=== PATIENT | male | born 1965 | race African-American/Black ===

== ENCOUNTER 2018-10-15 03:13 | Inpatient (IN) | payer OTHER ==
--- NOTE | 2018-10-15 03:45 | ER ---
Nurse's Notes [facility] Name: Cornelius Herman Jr Age: 53 yrs Sex: Male : 1965 Arrival Date: 10/15/2018 Time: 03:15 Bed 15 Private MD: Diagnosis: Chest pain, unspecified;Pain in left leg;Type 2 diabetes mellitus;Conjunctivitis;Essential (primary) hypertension;Cardiomegaly;Unspecified combined systolic (congestive) and diastolic (congestive) heart failure;Pleural effusion in conditions classified elsewhere Presentation: 10/15 03:29 Presenting complaint: Patient states: he was here for a sleep study and noticed that he aa1 was having pain in his L hamstring area and also L eye pain as well so he decided to come to the ED for evaluation since he was here. States, "It just feels like it's fatigued." Amb with steady gait. Transition of care: patient was not received from another setting of care. Onset of symptoms was October 15, 2018. Risk Assessment: Do you want to hurt yourself or someone else? Patient reports no desire to harm self or others. Initial Sepsis Screen: Does the patient meet any 2 criteria? No. Patient's initial sepsis screen is negative. Does the patient have a suspected source of infection? No. Patient's initial sepsis screen is negative. Care prior to arrival: None. 03:29 Method Of Arrival: Ambulatory aa1 03:29 Acuity: MIKE 4 aa1 03:36 Presenting complaint: Once physician entered pt's room pt states that he also felt a aa1 tightness in his chest and neck during his sleep study. States, "It's not pain, it was just discomfort.". 03:36 Acuity: MIKE 3 aa1 Triage Assessment: 07:00 General: Appears in no apparent distress. comfortable, Behavior is calm, cooperative, bp appropriate for age. Historical: - Allergies: 03:36 No Known Allergies; aa1 - Home Meds: 03:36 metformin 750 mg Oral Tb24 1 tab twice a day [Active]; glimepiride 2 mg Oral tab twice aa1 a day [Active]; Coreg 12.5 mg Oral tab 1 tab 2 times per day [Active]; aspirin 81 mg Oral chew 1 tab once daily [Active]; simvastatin 10 mg Oral tab 1 tab once daily [Active]; - PMHx: 03:36 Diabetes - NIDDM; Hypertension; Hyperlipidemia; aa1 - PSHx: 03:36 None; aa1 - Immunization history:: Flu vaccine is not up to date. - Social history:: Smoking status: Patient/guardian denies using tobacco. - Ebola Screening: : No symptoms or risks identified at this time. - Family history:: not pertinent. Screenin:30 Abuse screen: Denies threats or abuse. Denies injuries from another. Nutritional aa1 screening: No deficits noted. Tuberculosis screening: No symptoms or risk factors identified. Fall Risk None identified. Assessment: 03:30 General: Appears in no apparent distress. comfortable, Behavior is calm, cooperative, aa1 appropriate for age. Pain: Complains of pain in chest and left hamstring Pain currently is 2 out of 10 on a pain scale. Quality of pain is described as heavy, Pain began 30 min ago. Is intermittent. Neuro: Level of Consciousness is awake, alert, obeys commands, Oriented to person, place, time, situation, Moves all extremities. Full function Gait is steady, Speech is normal. Cardiovascular: Reports chest pain, Denies diaphoresis, lightheadedness, nausea, palpitations, shortness of breath, Heart tones S1 S2 present Capillary refill < 3 seconds Clubbing of nail beds is absent JVD is absent Patient's skin is warm and dry. Rhythm is regular Chest pain is described as mild, diffuse. Respiratory: Airway is patent Respiratory effort is even, unlabored, Respiratory pattern is regular, symmetrical. GI: No signs and/or symptoms were reported involving the gastrointestinal system. : No signs and/or symptoms were reported regarding the genitourinary system. EENT: No signs and/or symptoms were reported regarding the EENT system. Derm: Skin is intact, is healthy with good turgor, Skin is pink, warm \\T\\ dry. Musculoskeletal: Circulation, motion, and sensation intact. Capillary refill < 3 seconds, Range of motion: intact in all extremities. 04:35 Reassessment: Patient appears in no apparent distress at this time. Patient and/or aa1 family updated on plan of care and expected duration. Pain level reassessed. Patient is alert, oriented x 3, equal unlabored respirations, skin warm/dry/pink. Pt to have CT chest and venous doppler prior to admission to hospital. 05:19 Reassessment: Patient appears in no apparent distress at this time. Patient and/or aa1 family updated on plan of care and expected duration. Pain level reassessed. Patient is alert, oriented x 3, equal unlabored respirations, skin warm/dry/pink. Awaiting CT scan and u/s. 05:25 Reassessment: Patient appears in no apparent distress at this time. Patient and/or aa1 family updated on plan of care and expected duration. Pain level reassessed. Patient is alert, oriented x 3, equal unlabored respirations, skin warm/dry/pink. Pt requesting pain medication at this time. Still awaiting CT and u/s. 05:46 Reassessment: Pt taken to CT at this time. aa1 06:15 Reassessment: Patient appears in no apparent distress at this time. Patient and/or aa1 family updated on plan of care and expected duration. Pain level reassessed. Patient is alert, oriented x 3, equal unlabored respirations, skin warm/dry/pink. Dr. Mcgowan at bedside for pt assessment. certified master safe technician reports u/s tech should arrive around 0700 for study. 07:00 Reassessment: RECD REPORT FROM JULIA BREAUX. 53YO BM P/W RLE PAIN, +EDEMA. VS STABLE ON bp MONITOR, ADMIT ON HOLD PENDING U/S RESULT. 07:30 Reassessment: U/S COMPLETED, ADMIT IN PROCESS. bp Vital Signs: 03:30 BP 136 / 103; Pulse 102; Resp 18; Temp 99.5; Pulse Ox 100% on R/A; Weight 113.4 kg; aa1 Height 6 ft. 5 in. (195.58 cm); Pain 2/10; 04:30 BP 121 / 98; Pulse 101; Resp 20; Temp 98.9; Pulse Ox 98% on R/A; Pain 2/10; aa1 05:30 BP 115 / 93; Pulse 97; Resp 20; Pulse Ox 100% on R/A; Pain 5/10; aa1 06:27 BP 132 / 84; Pulse 94; Resp 22; Temp 99.0(O); Pulse Ox 95% on R/A; Pain 0/10; aa1 07:31 BP 111 / 94; Pulse 96; Resp 35; Pulse Ox 98% ; bp 03:30 Body Mass Index 29.65 (113.40 kg, 195.58 cm) aa1 ED Course: 03:15 Patient arrived in ED. ag3 03:20 Julia Price, RN is Primary Nurse. aa1 03:28 Quique Dutta MD is Attending Physician. wes 03:30 Arm band placed on right wrist. aa1 03:30 Patient has correct armband on for positive identification. Placed in gown. Bed in low aa1 position. Call light in reach. 03:32 Triage completed. aa1 03:35 Inserted saline lock: 20 gauge in left forearm, using aseptic technique. Blood rr5 collected. 03:40 equipment monitor phototypesetting on. Pulse ox on. NIBP on. rr5 03:42 Shannan Mcgowan MD is Hospitalizing Provider. wes 04:14 X-ray completed. Portable x-ray completed in exam room. Patient tolerated procedure sg4 well. 04:16 Chest Single View In Process Unspecified. EDMS 05:[address] via wheelchair. kw1 05:52 No provider procedures requiring assistance completed. Patient admitted, IV remains in aa1 place. 06:21 CT completed. Patient tolerated procedure well. Patient moved back from CT. kw1 06:52 Diet: Patient given snack. Tolerated well. aa1 07:00 Report given to Suleman Martel RN. aa1 07:29 Suleman Martel RN is Primary Nurse. bp 07:35 Ultrasound completed. Patient tolerated well. Notified ED Physician piotr. sg3 Administered Medications: 03:59 Drug: Lopressor 25 mg Route: PO; aa1 04:50 Follow up: Response: No adverse reaction; Blood pressure is lowered aa1 04:00 Drug: Aspirin Chewable Tablet 324 mg Route: PO; aa1 04:50 Follow up: Response: No adverse reaction aa1 04:00 Drug: Pepcid 20 mg Route: IVP; Site: left forearm; aa1 04:51 Follow up: Response: No adverse reaction aa1 04:00 Drug: Lovenox 1 mg/kg Route: Sub-Q; Site: right lower abdomen; aa1 04:51 Follow up: Response: No adverse reaction aa1 05:20 Drug: Mucomyst - Acetylcysteine 600 mg Route: PO; aa1 06:30 Follow up: Response: No adverse reaction aa1 05:38 Drug: Zofran 4 mg Route: IVP; Site: left forearm; aa1 06:29 Follow up: Response: No adverse reaction; Nausea is decreased aa1 05:40 Drug: morphine 2 mg Route: IVP; Site: left forearm; aa1 06:30 Follow up: Response: No adverse reaction; Pain is decreased aa1 07:30 Drug: Lasix 40 mg Route: IVP; Site: right antecubital; bp 07:30 Follow up: Response: No adverse reaction bp 07:30 Drug: Potassium Effervescent Tablet 25 mEq Route: PO; bp 07:30 Follow up: Response: No adverse reaction bp Outcome: 03:44 Decision to Hospitalize by Provider. wes 07:53 Admitted to Tele accompanied by tech, via wheelchair, room 421, with chart, Report bp called to JERI BREAUX 07:53 Condition: stable 07:53 Instructed on the need for admit. 08:14 Patient left the ED. bp Signatures: Dispatcher [employer] EDJulia Almendarez RN RN aa1 Quique Dutta MD MD cha Peltier, Brian RN RN bp Carolin Jorgensen kw1 Patsy Ling sg3 Zaira Rogers3 Yue Allen sg4 Dax Sadler, RN RN rr5
--- NOTE | 2018-10-15 03:45 | EDPHYS ---
Physician Documentation [facility] Name: Cornelius Herman Jr Age: 53 yrs Sex: Male : 1965 Arrival Date: 10/15/2018 Time: 03:15 Bed 15 Private MD: ED Physician Quique Dutta HPI: 10/15 03:39 This 53 yrs old Black Male presents to ER via Ambulatory with complaints of Leg Pain. wes 03:39 The patient presents with pain. The complaints affect the left hamstring. Context: The wes problem was sustained in the hospital. Onset: The symptoms/episode began/occurred this morning. Modifying factors: The symptoms are alleviated by nothing. the symptoms are aggravated by nothing. Associated signs and symptoms: The patient has no apparent associated signs or symptoms. Severity of symptoms: At their worst the symptoms were mild, in the emergency department the symptoms are unchanged. Historical: - Allergies: 03:36 No Known Allergies; aa1 - Home Meds: 03:36 metformin 750 mg Oral Tb24 1 tab twice a day [Active]; glimepiride 2 mg Oral tab twice aa1 a day [Active]; Coreg 12.5 mg Oral tab 1 tab 2 times per day [Active]; aspirin 81 mg Oral chew 1 tab once daily [Active]; simvastatin 10 mg Oral tab 1 tab once daily [Active]; - PMHx: 03:36 Diabetes - NIDDM; Hypertension; Hyperlipidemia; aa1 - PSHx: 03:36 None; aa1 - Immunization history:: Flu vaccine is not up to date. - Social history:: Smoking status: Patient/guardian denies using tobacco. - Ebola Screening: : No symptoms or risks identified at this time. - Family history:: not pertinent. ROS: 03:39 Constitutional: Negative for fever, chills, and weight loss, Eyes: Negative for injury, wes pain, redness, and discharge, ENT: Negative for injury, pain, and discharge, Neck: Negative for injury, pain, and swelling, Respiratory: Negative for shortness of breath, cough, wheezing, and pleuritic chest pain, Abdomen/GI: Negative for abdominal pain, nausea, vomiting, diarrhea, and constipation, Back: Negative for injury and pain, : Negative for injury, bleeding, discharge, and swelling, Skin: Negative for injury, rash, and discoloration, Neuro: Negative for headache, weakness, numbness, tingling, and seizure, Psych: Negative for depression, anxiety, suicide ideation, homicidal ideation, and hallucinations, Allergy/Immunology: Negative for hives, rash, and allergies, Endocrine: Negative for neck swelling, polydipsia, polyuria, polyphagia, and marked weight changes, Hematologic/Lymphatic: Negative for swollen nodes, abnormal bleeding, and unusual bruising. 03:39 Cardiovascular: Positive for chest pain, of the chest. 03:39 MS/extremity: Positive for pain, of the left hamstring. Exam: 03:39 Constitutional: This is a well developed, well nourished patient who is awake, alert, wes and in no acute distress. Head/Face: Normocephalic, atraumatic. Eyes: Pupils equal round and reactive to light, extra-ocular motions intact. Lids and lashes normal. Conjunctiva and sclera are non-icteric and not injected. Cornea within normal limits. Periorbital areas with no swelling, redness, or edema. ENT: Nares patent. No nasal discharge, no septal abnormalities noted. Tympanic membranes are normal and external auditory canals are clear. Oropharynx with no redness, swelling, or masses, exudates, or evidence of obstruction, uvula midline. Mucous membranes moist. Neck: Trachea midline, no thyromegaly or masses palpated, and no cervical lymphadenopathy. Supple, full range of motion without nuchal rigidity, or vertebral point tenderness. No Meningismus. Chest/axilla: Normal chest wall appearance and motion. Nontender with no deformity. No lesions are appreciated. Cardiovascular: Regular rate and rhythm with a normal S1 and S2. No gallops, murmurs, or rubs. Normal PMI, no JVD. No pulse deficits. Respiratory: Lungs have equal breath sounds bilaterally, clear to auscultation and percussion. No rales, rhonchi or wheezes noted. No increased work of breathing, no retractions or nasal flaring. Abdomen/GI: Soft, non-tender, with normal bowel sounds. No distension or tympany. No guarding or rebound. No evidence of tenderness throughout. Back: No spinal tenderness. No costovertebral tenderness. Full range of motion. Male : Normal genitalia with no discharge or lesions. Skin: Warm, dry with normal turgor. Normal color with no rashes, no lesions, and no evidence of cellulitis. MS/ Extremity: Pulses equal, no cyanosis. Neurovascular intact. Full, normal range of motion. Neuro: Awake and alert, GCS 15, oriented to person, place, time, and situation. Cranial nerves II-XII grossly intact. Motor strength 5/5 in all extremities. Sensory grossly intact. Cerebellar exam normal. Normal gait. Psych: Awake, alert, with orientation to person, place and time. Behavior, mood, and affect are within normal limits. 04:43 Musculoskeletal/extremity: DVT Exam: No signs of deep vein thrombosis. no pain, no wes swelling, no tenderness, negative Homans' sign noted on exam, no appreciated bluish discoloration, no erythema, no increased warmth. Vital Signs: 03:30 BP 136 / 103; Pulse 102; Resp 18; Temp 99.5; Pulse Ox 100% on R/A; Weight 113.4 kg; aa1 Height 6 ft. 5 in. (195.58 cm); Pain 2/10; 04:30 BP 121 / 98; Pulse 101; Resp 20; Temp 98.9; Pulse Ox 98% on R/A; Pain 2/10; aa1 05:30 BP 115 / 93; Pulse 97; Resp 20; Pulse Ox 100% on R/A; Pain 5/10; aa1 06:27 BP 132 / 84; Pulse 94; Resp 22; Temp 99.0(O); Pulse Ox 95% on R/A; Pain 0/10; aa1 07:31 BP 111 / 94; Pulse 96; Resp 35; Pulse Ox 98% ; bp 03:30 Body Mass Index 29.65 (113.40 kg, 195.58 cm) aa1 MDM: 03:28 Patient medically screened. [facility] 03:42 Data reviewed: vital signs, nurses notes, lab test result(s), EKG, radiologic studies, [facility] plain films. 10/15 03:39 Order name: Basic Metabolic Panel [facility] 10/15 03:39 Order name: CBC with Diff [facility] 10/15 03:39 Order name: LFT's [facility] 10/15 03:39 Order name: Magnesium [facility] 10/15 03:39 Order name: NT PRO-BNP [facility] 10/15 03:39 Order name: PT-INR [facility] 10/15 03:39 Order name: Troponin (emerg Dept Use Only) [facility] 10/15 03:39 Order name: Lipase [facility] 10/15 03:39 Order name: Urine Culture [facility] 10/15 03:49 Order name: D-Dimer [facility] 10/15 04:03 Order name: Urine Dipstick--Ancillary (enter results) ag4 10/15 04:09 Order name: Basic Metabolic Panel; Complete Time: 05:23 EDMS 10/15 04:09 Order name: Liver (Hepatic) Function; Complete Time: 05:23 EDMS 10/15 04:09 Order name: Troponin (Emerg Dept Use Only); Complete Time: 05:23 EDMS 10/15 03:39 Order name: XRAY Chest (1 view) [facility] 10/15 04:05 Order name: Chest Single View [facility] 10/15 04:09 Order name: NT PRO-BNP; Complete Time: 05:23 EDMS 10/15 04:09 Order name: Magnesium; Complete Time: 05:23 EDMS 10/15 04:09 Order name: Lipase; Complete Time: 05:23 EDMS 10/15 04:09 Order name: CBC with Automated Diff; Complete Time: 04:40 EDMS 10/15 04:09 Order name: Protime (+INR); Complete Time: 04:40 EDMS 10/15 04:09 Order name: D-Dimer; Complete Time: 04:40 EDMS 10/15 04:09 Order name: Urine Culture [facility] 10/15 04:29 Order name: Echo with Doppler [facility] 10/15 04:29 Order name: Lipid Profile [facility] 10/15 04:29 Order name: Lipid Profile [facility] 10/15 04:29 Order name: Troponin I [facility] 10/15 04:29 Order name: Troponin I [facility] 10/15 04:29 Order name: Troponin I [facility] 10/15 05:23 Order name: Lipid Profile; Complete Time: 05:23 EDMS 10/15 03:39 Order name: EKG; Complete Time: 07:11 wes 10/15 03:39 Order name: Cardiac monitoring; Complete Time: 03:45 [facility] 10/15 03:39 Order name: EKG - Nurse/Tech; Complete Time: 04:00 wes 10/15 03:39 Order name: IV Saline Lock; Complete Time: 03:45 wes 10/15 03:39 Order name: Labs collected and sent; Complete Time: 03:45 [facility] 10/15 03:39 Order name: O2 Per Protocol; Complete Time: 03:45 [facility] 10/15 03:39 Order name: O2 Sat Monitoring; Complete Time: 03:45 [facility] 10/15 03:39 Order name: Urine Dipstick-Ancillary (obtain specimen); Complete Time: 04:00 [facility] 10/15 04:29 Order name: CONS Physician Consult [facility] 10/15 04:29 Order name: Heart Healthy [facility] 10/15 04:31 Order name: CT Chest For PE Angio [facility] 10/15 04:31 Order name: US Extremity Venous W Compression Myron wes Administered Medications: 03:59 Drug: Lopressor 25 mg Route: PO; aa1 04:50 Follow up: Response: No adverse reaction; Blood pressure is lowered aa1 04:00 Drug: Aspirin Chewable Tablet 324 mg Route: PO; aa1 04:50 Follow up: Response: No adverse reaction aa1 04:00 Drug: Pepcid 20 mg Route: IVP; Site: left forearm; aa1 04:51 Follow up: Response: No adverse reaction aa1 04:00 Drug: Lovenox 1 mg/kg Route: Sub-Q; Site: right lower abdomen; aa1 04:51 Follow up: Response: No adverse reaction aa1 05:20 Drug: Mucomyst - Acetylcysteine 600 mg Route: PO; aa1 06:30 Follow up: Response: No adverse reaction aa1 05:38 Drug: Zofran 4 mg Route: IVP; Site: left forearm; aa1 06:29 Follow up: Response: No adverse reaction; Nausea is decreased aa1 05:40 Drug: morphine 2 mg Route: IVP; Site: left forearm; aa1 06:30 Follow up: Response: No adverse reaction; Pain is decreased aa1 07:30 Drug: Lasix 40 mg Route: IVP; Site: right antecubital; bp 07:30 Follow up: Response: No adverse reaction bp 07:30 Drug: Potassium Effervescent Tablet 25 mEq Route: PO; bp 07:30 Follow up: Response: No adverse reaction bp Disposition: 10/15/18 03:44 Hospitalization ordered by Shannan Mcgowan for Observation. Preliminary diagnosis are Chest pain, unspecified, Pain in left leg, Type 2 diabetes mellitus, Conjunctivitis, Essential (primary) hypertension, Cardiomegaly, Unspecified combined systolic (congestive) and diastolic (congestive) heart failure, Pleural effusion in conditions classified elsewhere. - Bed requested for Telemetry/MedSurg (observation). - Status is Observation. bp - Condition is Stable. - Problem is new. - Symptoms have improved. UTI on Admission? No Signatures: Dispatcher [employer] EDMS Rose Albert RN RN mw Kern, Alissa, RN RN aa1 Quique Dutta MD MD cha Peltier, Brian, RN RN bp Corrections: (The following items were deleted from the chart) 04:13 03:44 Hospitalization Ordered by Shannan Mcgowan MD for Observation. Preliminary wes diagnosis is Chest pain, unspecified; Pain in left leg; Type 2 diabetes mellitus; Conjunctivitis. Bed requested for Telemetry/MedSurg (observation). Status is Observation. Condition is Stable. Problem is new. Symptoms have improved. UTI on Admission? No. wes 04:14 04:13 10/15/2018 03:44 Hospitalization Ordered by Shannan Mcgowan MD for Observation. wes Preliminary diagnosis is Chest pain, unspecified; Pain in left leg; Type 2 diabetes mellitus; Conjunctivitis; Essential (primary) hypertension. Bed requested for Telemetry/MedSurg (observation). Status is Observation. Condition is Stable. Problem is new. Symptoms have improved. UTI on Admission? No. wes 04:49 04:14 10/15/2018 03:44 Hospitalization Ordered by Shannan Mcgowan MD for Observation. rose Preliminary diagnosis is Chest pain, unspecified; Pain in left leg; Type 2 diabetes mellitus; Conjunctivitis; Essential (primary) hypertension; Cardiomegaly. Bed requested for Telemetry/MedSurg (observation). Status is Observation. Condition is Stable. Problem is new. Symptoms have improved. UTI on Admission? No. wes 07:06 04:49 10/15/2018 03:44 Hospitalization Ordered by Shannan Mcgowan MD for Observation. wes Preliminary diagnosis is Chest pain, unspecified; Pain in left leg; Type 2 diabetes mellitus; Conjunctivitis; Essential (primary) hypertension; Cardiomegaly. Bed requested for Telemetry/MedSurg (observation). Status is Observation. Condition is Stable. Problem is new. Symptoms have improved. UTI on Admission? No. rose 08:14 07:06 10/15/2018 03:44 Hospitalization Ordered by Shannan Mcgowan MD for Observation. bp Preliminary diagnosis is Chest pain, unspecified; Pain in left leg; Type 2 diabetes mellitus; Conjunctivitis; Essential (primary) hypertension; Cardiomegaly; Unspecified combined systolic (congestive) and diastolic (congestive) heart failure; Pleural effusion in conditions classified elsewhere. Bed requested for Telemetry/MedSurg (observation). Status is Observation. Condition is Stable. Problem is new. Symptoms have improved. UTI on Admission? No. wes
[2018-10-15] MEDS ORDERED: ASPIRIN 81 MG CHEWABLE TABLET ONE (03:59)
[2018-10-15] MEDS ORDERED: FAMOTIDINE 20 MG/2 ML VIAL IV ONE (04:00)
[2018-10-15] MEDS ORDERED: METOPROLOL TAR 25 MG TAB ONE (04:00)
[2018-10-15] MEDS ORDERED: ENOXAPARIN 100 MG/ML SYR SQ ONE (04:00)
[2018-10-15 04:16] LABS: Absolute Lymphocytes (CBC) 1.9 K/uL (0.7-4.9); Absolute Monocytes 0.9 K/uL (0.1-1.3); Absolute Neutrophil 7.1 K/uL (1.8-8.0); Basophils % 0.6 % (0-1.3); Eosinophils % 1.8 % (0-4.4); Lymphocytes % 18.6 % (15.3-44.8); MPV 9.1 fL (7.6-11.3); Monocytes % 9.1 % (3.3-12.3)
[2018-10-15 04:18] LABS: Protime INR 1.12
[2018-10-15] MEDS ORDERED: ACETAMINOPHEN 500 MG TAB PO PRN (04:23)
[2018-10-15] MEDS ORDERED: MORPHINE 4 MG/ML SYR IV PRN (04:23)
[2018-10-15] MEDS ORDERED: ALPRAZOLAM 0.25 MG TABLET PO PRN (04:23)
[2018-10-15 04:32] LABS: ALT/SGPT 71 U/L (12-78); AST/SGOT 32 U/L (15-37); Albumin 3.7 g/dL (3.4-5.0); Alkaline Phosphatase 83 U/L (45-117); BUN Blood Urea Nitrogen 20 mg/dL (7-18); Bicarbonate 25 mmol/L (21-32); Bilirubin Direct 0.2 mg/dL (0-0.2); Bilirubin Total 0.6 mg/dL (0.2-1.0); Glucose Level 202 mg/dL (74-106); Lipase 56 U/L (73-393); Magnesium 2.1 mg/dL (1.8-2.4); NT PRO-BNP 2517 pg/mL (<125); Potassium 4.8 mmol/L (3.5-5.1); Protein, Total 6.9 g/dL (6.4-8.2); Sodium Level 138 mmol/L (136-145); Troponin (Emerg Dept Use Only) < 0.02 ng/mL (0.0-0.045)
[2018-10-15] MEDS ORDERED: ACETYLCYST 6,000 MG/30 ML VIAL ONE (05:15)
[2018-10-15 05:23] LABS: HDL Cholesterol 35 mg/dL (40-60); LDL Cholesterol, Calculated 86 (<130)
[2018-10-15] MEDS ORDERED: MORPHINE 2 MG/ML SYR ONE (05:46)
[2018-10-15] MEDS ORDERED: ONDANSETRON 4 MG/2 ML VIAL ONE (05:47)
[2018-10-15] MEDS ORDERED: POTASSIUM 25 MEQ EFFERV TAB ONE (07:53)
[2018-10-15] MEDS ORDERED: FUROSEMIDE 40 MG/4 ML VIAL ONE (07:54)
[2018-10-15 08:49] LABS: Urine Blood NEGATIVE (NEG); Urine Glucose NEGATIVE (NEG); Urine Protein NEGATIVE (NEG); Urine pH 5.5 (5.0-7.0)
--- NOTE | 2018-10-15 09:33 | RAD REPORT ---
EXAM DESCRIPTION: RAD - Chest Single View - 10/15/2018 4:16 am CLINICAL HISTORY: Chest pain COMPARISON: None. TECHNIQUE: AP portable chest image was obtained 0407 hours . FINDINGS: No peripheral mass or consolidation. Lung markings are mildly prominent probably baseline. Cardiomegaly is present suspected to be primarily right atrial enlargement. Pulmonary vasculature no t outside of normal range. No pneumothorax or large pleural effusion. No acute bony abnormality seen. No acute aortic findings suspected. IMPRESSION: No focal lung parenchymal process. Cardiomegaly.
[2018-10-15] MEDS: Gatifloxacin Ophth 0.5% (2.5 ML BTL) OPTH SCH ×2 (10:18→20:11)
--- NOTE | 2018-10-15 10:49 | P.HP ---
Certification for Inpatient Patient admitted to: Observation With expected LOS: <2 Midnights Patient will require the following post-hospital care: None Practitioner: I am a practitioner with admitting privileges, knowledge of patient current condition, hospital course, and medical plan of care. Services: Services provided to patient in accordance with Admission requirements found in Title 42 Section 412.3 of the Code of Federal Regulations Patient History Date of Service: 10/15/18 Reason for admission: Shortness of breath/chest pain/congestive heart failure History of Present Illness: Patient is a 53-year-old gentleman who came to the hospital with shortness of breath. He was scheduled to get an outpatient sleep study. However he was feeling really bad and when they checked his blood pressure it was 140s over 100. He was short of breath and so he came into the emergency room for evaluation. In the emergency room he had an elevated D-dimer. On exam he also has an elevated JVP. He appears to have some right-sided heart failure. This is probably from his diastolic dysfunction or left-sided heart failure. He will need to get an echocardiogram. He will need to be admitted for new onset congestive heart failure. His BNP is significantly elevated. Allergies No Known Allergies Allergy (Unverified 10/15/18 08:46) Home Medications: Aspirin [Aspirin EC 81 MG] 81 mg PO DAILY 10/15/18 Carvedilol 12.5 mg PO BID 10/15/18 Dulaglutide [Trulicity] 0.5 mg SQ SEECOM 10/15/18 Glimepiride 2 mg PO BIDWM 10/15/18 Metformin HCl [Metformin HCl ER] 750 mg PO BIDWM 10/15/18 Simvastatin 10 mg PO BEDTIME 10/15/18 - Past Medical/Surgical History Diabetic: Yes -: Type 2 diabetes -: Hyperlipidemia -: Hypertension -: Right eye optic nerve swelling -: Bilateral cataracts surgery 2017 -: Right elbow/arm surgery in high school from fracture -: Lutz tooth removal - Family History Father Notes: Grave's disease, Prostate Cancer, Leukemia - Social History Smoking Status: Never smoker Alcohol use: No CD- Drugs: No Caffeine use: No Place of Residence: Home Review of Systems 10-point ROS is otherwise unremarkable Physical Examination - Vital Signs Temperature: 97.2 F Blood Pressure: 116/74 Pulse: 94 Respirations: 18 Pulse Ox (%): 97 - Physical Exam General: Alert, In no apparent distress, Oriented x3 HEENT: Atraumatic, PERRLA, Mucous membr. moist/pink, EOMI, Sclerae nonicteric Neck: Supple, 2+ carotid pulse no bruit, No Thyromegaly, JVD distended Respiratory: Diminished, Crackles/rales Cardiovascular: Regular rate/rhythm, Normal S1 S2, Abnormal S3 Gastrointestinal: Normal bowel sounds, Soft and benign, Non-distended, No tenderness Musculoskeletal: No clubbing, No swelling, No tenderness Integumentary: No rashes Neurological: Normal gait, Normal speech, Normal strength at 5/5 x4 extr, Normal tone, Sensation intact, Cranial nerves 3-12 intact, Normal affect Lymphatics: No axilla or inguinal lymphadenopathy - Studies Laboratory Data (last 24 hrs) 10/15/18 03:45: PT 13.2 H, INR 1.12 10/15/18 03:45: WBC 10.2, Hgb 13.7, Hct 41.0, Plt Count 287 10/15/18 03:45: Sodium 138, Potassium 4.8, BUN 20 H, Creatinine 1.39 H, Glucose 202 H, Magnesium 2.1, Total Bilirubin 0.6, AST 32, ALT 71, Alkaline Phosphatase 83, Triglycerides 217 H, Cholesterol 164, HDL Cholesterol 35 L, Cholesterol/HDL Ratio 4.69, Lipase 56 L 10/15/18 03:39: PT Cancelled, INR Cancelled 10/15/18 03:39: WBC Cancelled, Hgb Cancelled, Hct Cancelled, Plt Count Cancelled 10/15/18 03:39: Sodium Cancelled, Potassium Cancelled, BUN Cancelled, Creatinine Cancelled, Glucose Cancelled, Magnesium Cancelled, Total Bilirubin Cancelled, AST Cancelled, ALT Cancelled, Alkaline Phosphatase Cancelled, Lipase Cancelled Assessment & Plan - Problems (Diagnosis) (1) Shortness of breath Current Visit: Yes Status: Acute (2) Elevated brain natriuretic peptide (BNP) level Current Visit: Yes Status: Acute (3) Elevated JVP (jugular venous pressure) Current Visit: Yes Status: Acute (4) Chest pain Current Visit: Yes Status: Acute (5) Acute diastolic (congestive) heart failure Current Visit: Yes Status: Acute - Plan 1. Echocardiogram; patient new onset heart failure. This could be acute diastolic dysfunction from poorly-controlled hypertension or it could be secondary to systolic dysfunction 2. We will start patient on an YISEL inhibitor 3. We will start patient on a Beta marry 4. Cardiology consultation 5. Aggressive diuresis 6. Strict I's and O's 7. Repeat CXR 8. Daily weights 9. Education regarding diet and treatment of congestive heart failure Discharge Plan: Home Plan to discharge in: Greater than 2 days - Advance Directives Does patient have a Living Will: No Does patient have a Durable POA for Healthcare: No - Code Status/Comfort Care Code Status Assessed: Yes Code Status: Full Code Critical Care: No Time Spent Managing PTS Care (In Minutes): 45
--- NOTE | 2018-10-15 14:14 | CON ---
Date of Consultation: 10/15/2018 Reason For Consultation: Atypical chest pain and shortness of breath. History Of Present Illness: Mr. Herman is a 53-year-old black male, has history of diabetes, hypert ension, dyslipidemia. Came in with left leg hamstring pain that has been going on for few hours. He also has been having some shortness of breath, atypical midsternal chest pain, that is nonexertional . Denied PND, orthopnea, or pedal edema. Denied any palpitation or syncope. Past Medical History: As stated above. Allergies: NONE. Review of Systems: Negative. Social History: Negative for tobacco, alcohol, or drug use. Family History: Positive for diabetes. Medications: Include metformin, Coreg, glimepiride, aspirin and Zocor. Physical Examination: General: He is pleasant, obese. Vital Signs: Stable. Afebrile. Sinus rhythm. HEENT: Negative. Neck: Supple without any bruit, lymphadenopathy, JVD, or thyromegaly. Chest: Some rales, both bases. Cardiac: Regular rhythm and rate with an S4 gallops. No murmurs or rubs. Abdomen: Benign. Extremities: No clubbing, cyanosis, or edema. Left leg examination was normal. Skin: Dry and intact. Neurologic: He was nonfocal. Diagnostic Data: CT angiogram revealed no pulmonary embolus, but it did reveal cardiomegaly and bila teral small pleural effusions. D-dimer was 552. Glucose was 209, creatinine was 1.39. Impression And Plan: 1.The patient with multiple cardiac risk factors for heart disease including diabetes, hypertension, dyslipidemia, fairly atypical chest pain. An echocardiogram is pending. We will also get a Lexisca n. 2.Left hamstring pain. Negative CTA with positive D-dimer. I suggested venous Doppler. Rule out D VT in the left leg. 3.Obesity. 4.Renal insufficiency stage 3. His diabetes, hypertension, and dyslipidemia are well controlled. I will continue to follow him. MILLIE/RENNY Voice ID: [id number] Report ID: [id number]
[2018-10-15] MEDS: METOPROLOL TAR 25 MG TAB PO SCH (20:11)
[2018-10-16] MEDS ORDERED: DULAGLUTIDE 0.5 MG SQ SCH (06:00)
--- NOTE | 2018-10-16 06:29 | EKG ---
Test Date: 2018-10-15 Test Time: 22:13:04 Record Changer Assembler: RT Alejandro MEASUREMENT RESULTS: Intervals: Rate: 93 IN: 124 QRSD: 84 QT: 372 QTc: 462 [place]: P: 136 IN: 124 QRS: 194 T: 184 INTERPRETIVE STATEMENTS: Suspect arm lead reversal, interpretation assumes no reversal Unusual P axis, possible ectopic atrial rhythm Right superior axis deviation Pulmonary disease pattern ST & T wave abnormality, consider inferior ischemia Prolonged QT Abnormal ECG No previous ECG available for comparison Electronically Signed On 10-16-18 06:28:16 SENIOR BRAND MANAGER by Aron Buckner
[2018-10-16] MEDS: METOPROLOL TAR 25 MG TAB PO SCH ×2 (09:00→20:20)
--- NOTE | 2018-10-16 09:14 | EKG ---
Test Date: 2018-10-15 Test Time: 03:50:00 Optical Lab Technician: RR MEASUREMENT RESULTS: Intervals: Rate: 104 WI: 122 QRSD: 80 QT: 342 QTc: 449 [place]: P: 58 WI: 122 QRS: -6 T: 9 INTERPRETIVE STATEMENTS: Sinus tachycardia Otherwise normal ECG No previous ECG available for comparison Electronically Signed On 10-16-18 09:13:51 AWNINGS MECHANIC by Aron Buckner
--- NOTE | 2018-10-16 10:16 | P.DS ---
Admission Date: 10/15/18 Discharge Date: 10/16/18 Primary Care Provider: Dr. Irwin Disposition: ROUTINE DISCHARGE Discharge Condition: GOOD Reason for Admission: Shortness of breath/chest pain/congestive heart failure Consultations: Cardiology-Dr. Escobedo Procedures: CT chest: TECHNIQUE: Axial computed tomographic angiography images of the chest with intravenous contrast using pulmonary embolism protocol. Sagittal and coronal reformatted images were created and reviewed. Sagittal and coronal reformatted images were created and reviewed. This CT exam was performed using one or more of the following dose reduction techniques: automated exposure control, adjustment of the mA and/or kV according to patient size, and/ or use of iterative reconstruction technique. MIP reconstructed images were created and reviewed. COMPARISON: No relevant prior studies available. FINDINGS: Pulmonary arteries: There are no obvious filling defects identified within the pulmonary arteries to suggest pulmonary embolism. Aorta: No acute findings. No thoracic aortic aneurysm. Lungs: Minimal scattered groundglass opacities are present. Pleural space: Small bilateral pleural effusions are present. No pneumothorax. Heart: The heart is enlarged. There is a trace pericardial effusion. No evidence of RV dysfunction. Bones/joints: No acute fracture. No dislocation. Soft tissues: Unremarkable. Lymph nodes: Unremarkable. No enlarged lymph nodes. IMPRESSION: 1. No evidence of pulmonary embolism. 2. Cardiomegaly with small pleural effusions and findings suggestive of mild venous congestion. ECHO: Venous doppler: negative for DVT Cardiac stress test: TECHNIQUE: The patient was administered approximately 10mCi of Tc 99m Sestamibi prior to resting SPECT imaging of the heart. The patient was then administered approximately 30 mCi of Tc 99m Sestamibi following exercise or pharmacologic stress. Multiplanar SPECT images were reviewed. FINDINGS: Large area of diminished radiotracer uptake involves the inferior left ventricular myocardium on rest and stress images. Ejection fraction equals approximately 20% IMPRESSION: Large fixed perfusion defect involving the inferior left ventricular myocardium consistent with an infarct No evidence of stress-induced ischemia Medical Problem list: Chest pain Shortness of breath with small bilateral pleural effusion with chronic systolic CHF Left hamstring pain Hypertension Diabetes mellitus type 2 Chronic renal disease, stage II Obesity, BMI 32.8 Hyperlipidemia GERD Suspect obstructive sleep apnea Brief History of Present Illness: 53-year-old male presented emergency room with multiple complaints including chest pain, shortness of breath and left lower extremity pain. Patient presented to the emergency room and evaluated. CT scan showed no pulmonary embolism. Mild bilateral pleural effusions noted. Initial cardiac enzymes unremarkable. Patient was admitted for further evaluation. The patient with underlying hypertension, diabetes, obesity. Hospital Course: Patient presented with chest pain, shortness of breath. Patient found to have small bilateral pleural effusion on CT scan. CT scan showed no pulmonary embolism. Patient seen and evaluated by Cardiology. Echocardiogram and cardiac stress test performed. Test showed no stress-induced ischemia. Ejection fraction 20%. Medication adjusted. Patient with systolic CHF. Patient will continue with a 1500 cc per day fluid restriction and low-salt diet. Recommend to monitor her weight daily. If his weight increases by more than 5 lb he is to contact his PCP or cardiology for further recommendation. At discharge patient will continue with aspirin 81 mg daily and metoprolol 12.5 mg 1 pill twice daily. Recommend a follow up with cardiology in 1-2 weeks to follow up this hospitalization. Recommend to recheck chest x-ray in 2-4 weeks to monitor resolution. Patient may require diuretic therapy in the near future. This can be further evaluated by cardiology. Patient with hypertension. Medication adjusted. Patient will no longer take carvedilol. Patient now on metoprolol. At discharge he will continue with metoprolol 12.5 mg 1 pill twice daily. Recommend to maintain blood pressures less 150/80. Further adjustment can be done by his PCP. Recommend to hold blood pressure medication if blood pressure less than 120 systolic. Patient with diabetes type 2. Patient will continue with glimepiride, metformin and trulicity. Recommend to maintain blood sugars less than 140 fasting and less than 200 after meals. Further adjustment can be done by his PCP. Further adjustment may be required due to his chronic renal disease. This can be addressed by his PCP. Patient with chronic renal disease, stage II. Recommend no further use of nonsteroidal anti-inflammatories. Future medications will need to be renally dosed. Recommend to follow up with nephrology as an outpatient to establish care and further monitor. Recommend to recheck lab-BMP in 1-2 weeks. Patient with hyperlipidemia. Patient will continue with Zocor daily. Patient likely with GERD. Recommend to continue with Pepcid 20 mg 1 pill twice daily. Recommend to follow up with GI as an outpatient to further evaluate. Patient may require EGD and colonoscopy in the future. Patient with obesity. BMI 32.8. Lifestyle modification education will be provided. Patient likely with underlying obstructive sleep apnea. Recommend for sleep study to be done as an outpatient. This can be further addressed by his PCP. Vital Signs/Physical Exam: Temp Pulse Resp BP Pulse Ox 98.9 F 98 H 16 107/73 96 10/16/18 08:00 10/16/18 08:00 10/16/18 08:00 10/16/18 08:00 10/16/18 08:00 General: Alert, In no apparent distress, Oriented x3, Cooperative HEENT: Atraumatic, Mucous membr. moist/pink Neck: Supple Respiratory: Clear to auscultation bilaterally, Normal air movement Cardiovascular: Normal pulses, Regular rate/rhythm Gastrointestinal: Normal bowel sounds, Soft and benign, Non-distended, No tenderness, No masses, No rebound, No guarding Musculoskeletal: No erythema, No tenderness, No warmth Integumentary: No tenderness/swelling, No erythema, No warmth, No cyanosis Neurological: Normal speech, Normal strength at 5/5 x4 extr, Normal tone, Normal affect Laboratory Data at Discharge: WBC 10.2 K/uL (4.3-10.9) 10/15/18 03:45 Hgb 13.7 g/dL (13.6-17.9) 10/15/18 03:45 Hct 41.0 % (39.6-49.0) 10/15/18 03:45 Plt Count 287 K/uL (152-406) 10/15/18 03:45 PT 13.2 SECONDS (9.5-12.5) H 10/15/18 03:45 INR 1.12 10/15/18 03:45 Sodium 138 mmol/L (136-145) 10/15/18 03:45 Potassium 4.8 mmol/L (3.5-5.1) 10/15/18 03:45 BUN 20 mg/dL (7-18) H 10/15/18 03:45 Creatinine 1.39 mg/dL (0.55-1.3) H 10/15/18 03:45 Glucose 202 mg/dL (74-106) H 10/15/18 03:45 Magnesium 2.1 mg/dL (1.8-2.4) 10/15/18 03:45 Total Bilirubin 0.6 mg/dL (0.2-1.0) 03/03/19 03:45 AST 32 U/L (15-37) 10/15/18 03:45 ALT 71 U/L (12-78) 10/15/18 03:45 Alkaline Phosphatase 83 U/L (45-117) 10/15/18 03:45 Troponin I < 0.02 ng/mL (0.0-0.045) 10/16/18 08:12 Triglycerides Cancelled 10/15/18 06:00 Cholesterol Cancelled 10/15/18 06:00 HDL Cholesterol Cancelled 10/15/18 06:00 Cholesterol/HDL Ratio Cancelled 10/15/18 06:00 Lipase 56 U/L (73-393) L 10/15/18 03:45 Home Medications: Aspirin [Aspirin EC 81 MG] 81 mg PO DAILY 10/15/18 Dulaglutide [Trulicity] 0.5 mg SQ SEECOM 10/15/18 Glimepiride 2 mg PO BIDWM 10/15/18 Metformin HCl [Metformin HCl ER] 750 mg PO BIDWM 10/15/18 Simvastatin 10 mg PO BEDTIME 10/15/18 Famotidine [Pepcid] 20 mg PO BID #60 tab 10/16/18 Metoprolol Tartrate [Lopressor*] 12.5 mg PO BID #60 tab 10/16/18 New Medications: Famotidine [Pepcid] 20 mg PO BID #60 tab Metoprolol Tartrate [Lopressor*] 12.5 mg PO BID #60 tab Patient Discharge Instructions: 1. Patient will follow up with his PCP in 1 week to follow up this hospitalization. 2. Patient presented with chest pain, shortness of breath. Patient found to have small bilateral pleural effusion on CT scan. CT scan showed no pulmonary embolism. Patient seen and evaluated by Cardiology. Echocardiogram and cardiac stress test performed. Test showed no stress-induced ischemia. Ejection fraction 20%. Medication adjusted. Patient with systolic CHF. Patient will continue with a 1500 cc per day fluid restriction and low-salt diet. Recommend to monitor her weight daily. If his weight increases by more than 5 lb he is to contact his PCP or cardiology for further recommendation. At discharge patient will continue with aspirin 81 mg daily and metoprolol 12.5 mg 1 pill twice daily. Recommend a follow up with cardiology in 1-2 weeks to follow up this hospitalization. Recommend to recheck chest x-ray in 2-4 weeks to monitor resolution. Patient may require diuretic therapy in the near future. This can be further evaluated by cardiology. 3. Patient with hypertension. Medication adjusted. Patient will no longer take carvedilol. Patient now on metoprolol. At discharge he will continue with metoprolol 12.5 mg 1 pill twice daily. Recommend to maintain blood pressures less 150/80. Further adjustment can be done by his PCP. Recommend to hold blood pressure medication if blood pressure less than 120 systolic. 4. Patient with diabetes type 2. Patient will continue with glimepiride, metformin and trulicity. Recommend to maintain blood sugars less than 140 fasting and less than 200 after meals. Further adjustment can be done by his PCP. Further adjustment may be required due to his chronic renal disease. This can be addressed by his PCP. 5. Patient with chronic renal disease, stage II. Recommend no further use of nonsteroidal anti- inflammatories. Future medications will need to be renally dosed. Recommend to follow up with nephrology as an outpatient to establish care and further monitor. Recommend to recheck lab-BMP in 1-2 weeks. 6. Patient with hyperlipidemia. Patient will continue with Zocor daily. 7. Patient likely with GERD. Recommend to continue with Pepcid 20 mg 1 pill twice daily. Recommend to follow up with GI as an outpatient to further evaluate. Patient may require EGD and colonoscopy in the future. 8. Patient with obesity. BMI 32.8. Lifestyle modification education will be provided. 9. Patient likely with underlying obstructive sleep apnea. Recommend for sleep study to be done as an outpatient. This can be further addressed by his PCP. Diet: ADA Activity: Ad mirta Time spent managing pt's care (in minutes): 55
[2018-10-16] MEDS ORDERED: REGADENOSON 0.4 MG/5 ML SYR IV ONE (10:35)
--- NOTE | 2018-10-16 12:28 | RAD REPORT ---
EXAM DESCRIPTION: CT - Chest For Pe Angio - 10/15/2018 8:30 am CLINICAL HISTORY: The patient is 53 years old and is Male; Chest pain TECHNIQUE: Axial computed tomographic angiography images of the chest with intravenous contrast [facility] pulmonary embolism protocol. Sagittal and coronal reformatted images were created and reviewed. Sagittal and coronal reformatted images were created and reviewed. This CT exam was performed [facility] one or more of the following dose reduction techniques: automated exposure control, adjustment of the mA and/or kV according to patient size, and/or use of iterative reconstruction technique. MIP reconstructed images were created and reviewed. COMPARISON: No relevant prior studies available. FINDINGS: Pulmonary arteries: There are no obvious filling defects identified within the pulmonary arteries to suggest pulmonary embolism. Aorta: No acute findings. No thoracic aortic aneurysm. Lungs: Minimal scattered groundglass opacities are present. Pleural space: Small bilateral pleural effusions are present. No pneumothorax. Heart: The heart is enlarged. There is a trace pericardial effusion. No evidence of RV dysfunction. Bones/joints: No acute fracture. No dislocation. Soft tissues: Unremarkable. Lymph nodes: Unremarkable. No enlarged lymph nodes. IMPRESSION: 1. No evidence of pulmonary embolism. 2. Cardiomegaly with small pleural effusions and findings suggestive of mild venous congestion. Electronically signed by: Ranjana Gabriel MD 10/15/2018 6:46 AM VOCATIONAL EDUCATION TEACHER Due to temporary technical issues with the PACS/Fluency reporting system, reports are being signed by the in house radiologist as a courtesy to ensure prompt reporting. The interpreting radiologist is f ully responsible for the content of the report.
--- NOTE | 2018-10-16 13:10 | RAD REPORT ---
EXAM DESCRIPTION: NM - Rest Stress Cardiac Imaging - 10/16/2018 1:01 pm CLINICAL HISTORY: Chest pain. COMPARISON: None. TECHNIQUE: The patient was administered approximately 10mCi of Tc 99m Sestamibi prior to resting SPE CT imaging of the heart. The patient was then administered approximately 30 mCi of Tc 99m Sestamibi f ollowing exercise or pharmacologic stress. Multiplanar SPECT images were reviewed. FINDINGS: Large area of diminished radiotracer uptake involves the inferior left ventricular myocar dium on rest and stress images. Ejection fraction equals approximately 20% IMPRESSION: Large fixed perfusion defect involving the inferior left ventricular myocardium consiste nt with an infarct No evidence of stress-induced ischemia
[2018-10-16] MEDS: ENOXAPARIN 40 MG/0.4 ML SQ SCH (13:11)
[2018-10-16] MEDS: Gatifloxacin Ophth 0.5% (2.5 ML BTL) OPTH SCH ×2 (13:11→20:20)
[2018-10-16] MEDS: GLIMEPIRIDE 2 MG TABLET PO SCH ×2 (13:12→17:32)
[2018-10-16] MEDS: ASPIRIN EC 81 MG TAB PO SCH (13:17)
--- NOTE | 2018-10-16 13:50 | TREADPHA ---
DX: CHEST PAIN Date of Study: 10/16/17 Ht: 6 0 Wt: 241 lb 12.8 oz Consulting Physician: JAKBU MEDICATIONS: TYLENOL, LOVENOX, ASPIRIN, AMARY, LOPRESSOR. HISTORY: 53 YEAR OLD MALE WITH COMPLALINTS OF LEFT LEG PAIN, CHEST PAIN. HISTORY NO INSULIN DEPENDENT DIABETES MELLITUS, HYPERLIPIDEMIA, HYPERTENSION, RIGH EYE OPTIC NERVE SWELLING. NON SMOKER, OCCASIONAL DRINKER. PHYSICIAL EXAMINATION: RESTING B.P.: 131/97 RESTING H.R.: 95 RESTING EKG: NORMAL. PROTOCOL: LEXISCAN EXERCISE TIME: 3:30 B.P. AT [place]AK STRESS: 129/85 IMPRESSION: LEXISCAN INJECTED, FOLLOWED BY CARDIOLITE PER PROTOCOL, SEE NUCLEAR MEDICINE REPORT. NO SUPRA VENTRICULAR TACHYCARDIA, NO VENTRICULAR TACHYCARDIA, NO PREMATURE ATRIAL COMPLEXES, NO PREMATURE VENTRICULAR COMPLEXES. PATIENT REPORTED NO CHEST PAIN OR TIGHTNESS THROUGHOUT PROCEDURE, OR IN RECOVERY. NON DIAGNOSTIC EKG WITH LEXISCAN STRESS.
--- NOTE | 2018-10-16 14:45 | RAD REPORT ---
EXAM DESCRIPTION: USExtrem Venous W Compress Bil10/15/2018 7:35 am CLINICAL HISTORY: Leg pain COMPARISON: none FINDINGS: The common femoral, superficial femoral, popliteal and posterior tibial veins bilaterally are compressible and demonstrate augmentation. Doppler demonstrates good flow. IMPRESSION: No evidence of deep venous thrombosis involving either lower extremity.
--- NOTE | 2018-10-16 17:23 | P.PN ---
Subjective Date of Service: 10/16/18 Primary Care Provider: Dr. Irwin Chief Complaint: Shortness of breath/chest pain/congestive heart failure Subjective: Doing well Physical Examination - Vital Signs Temperature: 97.6 F Blood Pressure: 114/79 Pulse: 100 Respirations: 16 Pulse Ox (%): 94 - Physical Exam General: Alert, In no apparent distress, Oriented x3, Cooperative HEENT: Atraumatic Neck: Supple Respiratory: Clear to auscultation bilaterally, Normal air movement Cardiovascular: Normal pulses, Regular rate/rhythm Gastrointestinal: Normal bowel sounds, Soft and benign, Non-distended Integumentary: No erythema, No warmth, No cyanosis Neurological: Normal speech, Normal strength at 5/5 x4 extr, Normal tone Assessment & Plan Discharge Plan: Home Plan to discharge in: 48 Hours Physician Review Additional Text: Impression: Shortness of breast secondary to acute systolic CHF with EF of 20% with cardiomyopathy Hypertension Diabetes mellitus type 2 Hyperlipidemia Obesity, BMI 32.8 Plan: Shortness of breast secondary to acute systolic CHF with EF of 20% with cardiomyopathy: Cardiac stress test negative but ejection fraction 20%. Case discussed with cardiology. Ejection fraction also low on echocardiogram. Patient will require CHF medication. Patient will also require life vest. Cardiology to adjust medication. Cardiology to discuss further with patient about life vest. Will hold discharge to continue with cardiology recommendation. Hypertension: Cardiology to adjust. Diabetes mellitus type 2: Will check A1c. Continue sliding scale. Hyperlipidemia: Continue medication Obesity, BMI 32.8: Address lifestyle modify Time Spent Managing Pts Care (In Minutes): 55
--- NOTE | 2018-10-16 17:36 | ECHO ---
HEIGHT: 6 ft 0 in WEIGHT: 241 lb 12.8 oz DATE OF STUDY: 10/16/[address]: Shannan Mcgowan MD 2-DIMENSIONAL: YES M.MODE: YES DOPPLER: YES COLOR FLOW: YES TDS: PORTABLE: DEFINITY: BUBBLE STUDY: DIAGNOSIS: CHEST PAIN, R/O ACS CARDIAC HISTORY: CATHERIZATION: NO SURGERY: NO PROSTHETIC VALVE: NO PACEMAKER: NO MEASUREMENTS (cm) DIASTOLIC (NORMALS) SYSTOLIC (NORMALS) Ao Diam 3.3 (2.0-3.7) LA Diam 3.6 (1.9-4.0) LVEF 20% 2 DIMENSIONAL ASSESSMENT: RIGHT ATRIUM: DILATED LEFT ATRIUM: DILATED RIGHT VENTRICLE: DILATED LEFT VENTRICLE: DILATED TRICUSPID VALVE: NORMAL MITRAL VALVE: NORMAL PULMONIC VALVE: NORMAL AORTIC VALVE: NORMAL PERICARDIAL EFFUSION: NONE AORTIC ROOT: NORMAL LEFT VENTRICULAR WALL MOTION: SEVERE GLOBAL HYPOKINESIS. DOPPLER/COLOR FLOW: MILD AORTIC REGURGITATION, MITRAL REGURGITATION, AND TRICUSPID REGURGITATION. ESTIMATED RIGHT VENTRICULAR SYSTOLIC PRESSURE 45 mmHg. MILD PULMONARY HYPERTENSION. COMMENTS: FOUR CHAMBER DILATION. SEVERELY DEPRESSED LEFT VENTRICULAR EJECTION FRACTION. MILD AORTIC REGURGITATION, MITRAL REGURGITATION, AND TRICUSPID REGURGITATION. MILD PULMONARY HYPERTENSION. TECHNOLOGIST: JUAN A ALEXANDRE
[2018-10-16] MEDS: ATORVASTATIN 10 MG TAB PO SCH (20:20)
[2018-10-16] MEDS: SACUBITRIL/VALSARTAN 24/26 MG TAB PO SCH (20:20)
[2018-10-16] MEDS ORDERED: METOPROLOL TAR 25 MG TAB PO SCH (21:00)
--- NOTE | 2018-10-16 23:05 | PN ---
Mr. Herman has been found to have a stress test that suggests no ischemia. There could be some scar , but there is no ischemia. Ejection fraction about 20%. The echocardiogram and EKG would not sugge st scarring that looks like a cardiomyopathy, EF about 20%. I think Mr. Herman should be started on Entresto, Lasix and a higher dose of beta marry. As time goes by, we will probably add a mineralo corticoid such as spironolactone. He should be fitted for a LifeVest. We will work on doing that to roger and if that can be done, he could be discharged tomorrow night. He is a likely candidate to n eed a defibrillator if his ejection fraction not improved. YUDI/RENNY Voice ID: [id number] Report ID: [id number]
[2018-10-17] MEDS: Gatifloxacin Ophth 0.5% (2.5 ML BTL) OPTH SCH ×2 (08:36→20:50)
[2018-10-17] MEDS: METOPROLOL TAR 25 MG TAB PO SCH ×2 (08:36→20:48)
[2018-10-17] MEDS: ENOXAPARIN 40 MG/0.4 ML SQ SCH (08:37)
[2018-10-17] MEDS: FUROSEMIDE 40 MG TABLET PO SCH (08:37)
[2018-10-17] MEDS: ASPIRIN EC 81 MG TAB PO SCH (08:37)
[2018-10-17] MEDS: SACUBITRIL/VALSARTAN 24/26 MG TAB PO SCH ×2 (08:37→20:48)
[2018-10-17] MEDS: GLIMEPIRIDE 2 MG TABLET PO SCH ×2 (08:37→17:42)
--- NOTE | 2018-10-17 15:48 | P.PN ---
Subjective Date of Service: 10/17/18 Primary Care Provider: Dr. Irwin Chief Complaint: Shortness of breath/chest pain/congestive heart failure Subjective: Improving Physical Examination - Vital Signs Temperature: 97.4 F Blood Pressure: 113/75 Pulse: 91 Respirations: 16 Pulse Ox (%): 98 - Physical Exam General: Alert, In no apparent distress, Oriented x3, Cooperative HEENT: Atraumatic Neck: Supple Respiratory: Clear to auscultation bilaterally, Normal air movement Cardiovascular: Normal pulses, Regular rate/rhythm Gastrointestinal: Normal bowel sounds, Soft and benign, Non-distended, No tenderness, No masses, No rebound, No guarding Musculoskeletal: No erythema, No tenderness, No warmth Integumentary: No tenderness/swelling, No erythema, No warmth, No cyanosis Neurological: Normal speech, Normal strength at 5/5 x4 extr, Normal tone, Normal affect - Studies Microbiology Data (last 24 hrs): 10/15/18 03:45 Clean Catch Urine [place] Count - Final 10/15/18 03:45 Clean Catch Urine - Final Medications List Reviewed: Yes Assessment & Plan Discharge Plan: Home Plan to discharge in: 24 Hours Physician Review Additional Text: Impression: Shortness of breast secondary to acute systolic CHF with EF of 20% with cardiomyopathy Hypertension Diabetes mellitus type 2 Hyperlipidemia Obesity, BMI 32.8 Obstructive sleep apnea Plan: Shortness of breast secondary to acute systolic CHF with EF of 20% with cardiomyopathy: Cardiac stress test negative but ejection fraction 20%. Case discussed with cardiology. Patient will need a life vest. Nursing ordering life vest per patient. Once this has been arranged patient can be discharge. Continue with CHF medication as per Cardiology. This includes Lasix, Entresto, , metoprolol and aspirin. Anticipate discharge in the next 24 hr once life vest in place. Hypertension: Cardiology to adjust. Diabetes mellitus type 2: Will check A1c. Will recommend to discontinue Trulicity. Patient may continue with metformin at discharge Continue sliding scale. Hyperlipidemia: Continue medication-Lipitor Obesity, BMI 32.8: Address lifestyle modification education will be provided Obstructive sleep apnea: Patient will need to continue with his CPAP at home. Time Spent Managing Pts Care (In Minutes): 55
[2018-10-17] MEDS: ATORVASTATIN 10 MG TAB PO SCH (20:49)
[2018-10-18 05:44] VITALS: BMI 32.6
[2018-10-18] MEDS: ENOXAPARIN 40 MG/0.4 ML SQ SCH (09:57)
[2018-10-18] MEDS: METOPROLOL TAR 25 MG TAB PO SCH (09:58)
[2018-10-18] MEDS: ASPIRIN EC 81 MG TAB PO SCH (09:58)
[2018-10-18] MEDS: GLIMEPIRIDE 2 MG TABLET PO SCH (09:58)
[2018-10-18] MEDS: SACUBITRIL/VALSARTAN 24/26 MG TAB PO SCH (09:58)
[2018-10-18] MEDS: FUROSEMIDE 40 MG TABLET PO SCH (09:58)
[2018-10-18] MEDS: Gatifloxacin Ophth 0.5% (2.5 ML BTL) OPTH SCH (09:59)
--- NOTE | 2018-10-18 10:08 | RAD REPORT ---
EXAM DESCRIPTION: RAD - Barium Swallow Modified - 10/18/2018 9:53 am CLINICAL HISTORY: Dysphagia FINDINGS: 1 SECOND SWALLOW DELAY WITH REGULAR THIN LIQUIDS BY CUP, MILD-MOD ESOPHAGEAL STASIS WITH R EGULAR SOLIDS - CLEARED WITH THIN LIQUID WA NO SUPRAGLOTTIC PENETRATION. NO ASPIRATION Fluoroscopy time 1.2 minutes. Ten fluoroscopic spot series obtained
--- NOTE | 2018-10-18 11:46 | P.PN ---
Subjective Date of Service: 10/18/18 Primary Care Provider: Dr. Irwin Chief Complaint: Shortness of breath/chest pain/congestive heart failure Subjective: Doing well (Patient doing well this time. Patient had reported some dysphagia for quite some time at prior to admission. Patient requesting recommendations) Physical Examination - Vital Signs Temperature: 98.0 F Blood Pressure: 123/82 Pulse: 92 Respirations: 18 Pulse Ox (%): 97 - Physical Exam General: Alert, Oriented x3, Cooperative HEENT: Atraumatic Neck: Supple Respiratory: Clear to auscultation bilaterally, Normal air movement Cardiovascular: Normal pulses, Regular rate/rhythm Gastrointestinal: Normal bowel sounds, Soft and benign, Non-distended, No tenderness, No masses, No rebound, No guarding Musculoskeletal: No erythema, No tenderness, No warmth Integumentary: No tenderness/swelling, No erythema, No warmth, No cyanosis Neurological: Normal speech, Normal strength at 5/5 x4 extr, Normal tone, Normal affect - Studies Microbiology Data (last 24 hrs): 10/15/18 03:45 Clean Catch Urine [place] Count - Final 10/15/18 03:45 Clean Catch Urine - Final Medications List Reviewed: Yes Assessment & Plan Discharge Plan: Home Plan to discharge in: 24 Hours Physician Review Additional Text: Impression: Shortness of breast secondary to acute systolic CHF with EF of 20% with cardiomyopathy Hypertension Diabetes mellitus type 2 Hyperlipidemia Obesity, BMI 32.8 Obstructive sleep apnea Dysphagia, noted esophageal stasis Plan: Shortness of breast secondary to acute systolic CHF with EF of 20% with cardiomyopathy: Awaiting approval and for the patient to obtain life vest. Once this is arranged patient can be discharged. Cardiac stress test negative but ejection fraction 20%. Case discussed with cardiology. Continue current medication Hypertension: Continue current medication. Overall stable. Diabetes mellitus type 2: A1c 8.0. Will recommend to discontinue Trulicity. Patient may continue with metformin at discharge. Will make adjustments to medication at discharge. Continue sliding scale. Hyperlipidemia: Continue medication-Lipitor Obesity, BMI 32.8: Address lifestyle modification education will be provided Obstructive sleep apnea: Patient will need to continue with his CPAP at home. Dysphagia, noted esophageal stasis: Patient had modified barium swallow. No aspiration noted. Speech worked with patient. Will recommend GI consultation as an outpatient to further evaluate. Instructions recommendations by speech reviewed. Time Spent Managing Pts Care (In Minutes): 55
[2018-10-18 12:51] VITALS: O2SAT 96
--- NOTE | 2018-10-18 13:29 | PN ---
The patient is doing well with his present medication regimen for heart failure, and as an outpatient , we will probably add spironolactone as soon as he is fitted with a Life Vest and after he is stable enough to be discharged home. We had a discussion about low-sodium diet. Dietitian has seen him as well. I think if he is discharged home taking aspirin, atorvastatin, Lasix metoprolol, and sacubitr il as he is taking now and his Life Vest. We could follow him as an outpatient from that point on. KARLA Voice ID: [id number] Report ID: [id number]
--- NOTE | 2018-10-18 15:35 | P.DS ---
Admission Date: 10/17/18 Discharge Date: 10/18/18 Primary Care Provider: Dr. Irwin Disposition: ROUTINE DISCHARGE Discharge Condition: GOOD Reason for Admission: Shortness of breath/chest pain/congestive heart failure Consultations: Cardiology-Dr. Buckner Procedures: ECHO: Ejection fraction 20% LEFT VENTRICULAR WALL MOTION: SEVERE GLOBAL HYPOKINESIS DOPPLER/COLOR FLOW: MILD AORTIC REGURGITATION, MITRAL REGURGITATION, AND TRICUSPID REGURGITATION. ESTIMATED RIGHT VENTRICULAR SYSTOLIC PRESSURE 45 mmHg. MILD PULMONARY HYPERTENSION. COMMENTS: FOUR CHAMBER DILATION. SEVERELY DEPRESSED LEFT VENTRICULAR EJECTION FRACTION. MILD AORTIC REGURGITATION, MITRAL REGURGITATION, AND TRICUSPID REGURGITATION. MILD PULMONARY HYPERTENSION. Cardiac stress test: COMPARISON: None. TECHNIQUE: The patient was administered approximately 10mCi of Tc 99m Sestamibi prior to resting SPECT imaging of the heart. The patient was then administered approximately 30 mCi of Tc 99m Sestamibi following exercise or pharmacologic stress. Multiplanar SPECT images were reviewed. FINDINGS: Large area of diminished radiotracer uptake involves the inferior left ventricular myocardium on rest and stress images. Ejection fraction equals approximately 20% IMPRESSION: Large fixed perfusion defect involving the inferior left ventricular myocardium consistent with an infarct No evidence of stress-induced ischemia MBS: CLINICAL HISTORY: Dysphagia FINDINGS: 1 SECOND SWALLOW DELAY WITH REGULAR THIN LIQUIDS BY CUP, MILD-MOD ESOPHAGEAL STASIS WITH REGULAR SOLIDS - CLEARED WITH THIN LIQUID WATER NO SUPRAGLOTTIC PENETRATION. NO ASPIRATION CT chest: COMPARISON: No relevant prior studies available. FINDINGS: Pulmonary arteries: There are no obvious filling defects identified within the pulmonary arteries to suggest pulmonary embolism. Aorta: No acute findings. No thoracic aortic aneurysm. Lungs: Minimal scattered groundglass opacities are present. Pleural space: Small bilateral pleural effusions are present. No pneumothorax. Heart: The heart is enlarged. There is a trace pericardial effusion. No evidence of RV dysfunction. Bones/joints: No acute fracture. No dislocation. Soft tissues: Unremarkable. Lymph nodes: Unremarkable. No enlarged lymph nodes. IMPRESSION: 1. No evidence of pulmonary embolism. 2. Cardiomegaly with small pleural effusions and findings suggestive of mild venous congestion. Venous Doppler: COMPARISON: none FINDINGS: The common femoral, superficial femoral, popliteal and posterior tibial veins bilaterally are compressible and demonstrate augmentation. Doppler demonstrates good flow. IMPRESSION: No evidence of deep venous thrombosis involving either lower extremity Medical Problem List: Shortness of breast secondary to acute systolic CHF with EF of 20% with cardiomyopathy now with life vest Hypertension Diabetes mellitus type 2 Hyperlipidemia Obesity, BMI 32.8 Obstructive sleep apnea Dysphagia, noted esophageal stasis Brief History of Present Illness: 53-year-old male presented emergency room with shortness of breath. Patient was admitted for possible underlying CHF. Hospital Course: Patient presented with shortness of breath found to have new acute systolic CHF. Ejection fraction 20% with cardiomyopathy noted. Patient had evaluation by Cardiology. Cardiac stress test showed no stress-induced ischemia but confirmed ejection fraction of 20%. Patient now on new medication. Cardiology also recommended life vest. Life vest now in place. At discharge patient will continue with aspirin 81 mg daily, Entresto 24/26 mg 1 pill twice daily, Lasix 40 mg 1 pill once daily, and metoprolol 25 mg 1 pill twice daily. Patient will continue with a 1500 cc per day fluid restriction and low-salt diet. Patient will follow up with cardiology in 1-2 weeks to follow up this hospitalization. Patient may benefit with CHF rehab. This can be further addressed by cardiology. Patient will have to limit activity at discharge. Patient to be cleared to go back to work after seen by Cardiology as an outpatient. Education on CHF and cardiomyopathy will be provided. Patient instructed on use of life vest prior to discharge. Patient with hypertension. Medication adjusted. Patient will continue with medication-metoprolol 25 mg 1 pill twice daily. Recommendation is to maintain blood pressures is 150/80. Further adjustment can be done by his PCP. Patient with diabetes mellitus type 2, hemoglobin A1c 8.0. Medication adjusted during his stay. Will discontinue Trulicity as this may interfere with his CHF. Patient will continue with metformin 1000 mg 1 pill twice daily and glimepiride 4 mg 1 pill twice daily. Recommend to maintain blood sugars less than 140 fasting and less than 200 after meals. Further adjustment can be done by his PCP. Patient with hyperlipidemia. New medication includes Lipitor 40 mg daily. Patient with obstructive sleep apnea. Patient will need to continue with CPAP at home. Patient to follow up with pulmonology to further evaluate. Patient had reported some dysphagia. Modified barium swallow showed no aspiration. Speech noted possible esophageal stasis. Recommendation is for the patient to follow up with GI as an outpatient to further evaluate. At discharge patient may continue with Pepcid 20 mg 1 pill twice daily. Vital Signs/Physical Exam: Temp Pulse Resp BP Pulse Ox 97.9 F 92 H 18 117/82 96 10/18/18 12:00 10/18/18 12:00 10/18/18 12:00 10/18/18 12:00 10/18/18 12:00 General: Alert, In no apparent distress, Oriented x3, Cooperative HEENT: Atraumatic Neck: Supple Respiratory: Clear to auscultation bilaterally, Normal air movement Cardiovascular: Normal pulses, Regular rate/rhythm Gastrointestinal: Normal bowel sounds, Soft and benign, Non-distended, No tenderness, No masses, No rebound, No guarding Musculoskeletal: No erythema, No tenderness, No warmth Integumentary: No tenderness/swelling, No erythema, No warmth, No cyanosis Neurological: Normal speech, Normal strength at 5/5 x4 extr, Normal tone, Normal affect Lymphatics: No axilla or inguinal lymphadenopathy Laboratory Data at Discharge: WBC 10.2 K/uL (4.3-10.9) 10/15/18 03:45 Hgb 13.7 g/dL (13.6-17.9) 10/15/18 03:45 Hct 41.0 % (39.6-49.0) 10/15/18 03:45 Plt Count 287 K/uL (152-406) 10/15/18 03:45 PT 13.2 SECONDS (9.5-12.5) H 10/15/18 03:45 INR 1.12 10/15/18 03:45 Sodium 138 mmol/L (136-145) 10/15/18 03:45 Potassium 4.8 mmol/L (3.5-5.1) 10/15/18 03:45 BUN 20 mg/dL (7-18) H 10/15/18 03:45 Creatinine 1.39 mg/dL (0.55-1.3) H 10/15/18 03:45 Glucose 202 mg/dL (74-106) H 10/15/18 03:45 Magnesium 2.1 mg/dL (1.8-2.4) 10/15/18 03:45 Total Bilirubin 0.6 mg/dL (0.2-1.0) 10/15/18 03:45 AST 32 U/L (15-37) 10/15/18 03:45 ALT 71 U/L (12-78) 10/15/18 03:45 Alkaline Phosphatase 83 U/L (45-117) 10/15/18 03:45 Troponin I < 0.02 ng/mL (0.0-0.045) 10/16/18 08:12 Triglycerides Cancelled 10/15/18 06:00 Cholesterol Cancelled 10/15/18 06:00 HDL Cholesterol Cancelled 10/15/18 06:00 Cholesterol/HDL Ratio Cancelled 10/15/18 06:00 Lipase 56 U/L (73-393) L 10/15/18 03:45 Home Medications: Aspirin [Aspirin EC 81 MG] 81 mg PO DAILY 10/15/18 Famotidine [Pepcid] 20 mg PO BID #60 tab 10/16/18 Atorvastatin Calcium [Lipitor] 40 mg PO DAILY #30 tablet 10/18/18 Furosemide [Lasix*] 40 mg PO DAILY #30 tab 10/18/18 Glimepiride 4 mg PO BID #60 tablet 10/18/18 Metformin HCl 1,000 mg PO BID #60 tablet 10/18/18 Metoprolol Tartrate [Lopressor*] 25 mg PO BID #60 tab 10/18/18 Sacubitril/Valsartan [Entresto 24 mg-26 mg Tablet] 1 tab PO BID #60 tab New Medications: Atorvastatin Calcium [Lipitor] 40 mg PO DAILY #30 tablet Famotidine [Pepcid] 20 mg PO BID #60 tab Furosemide [Lasix*] 40 mg PO DAILY #30 tab Glimepiride 4 mg PO BID #60 tablet Metformin HCl 1,000 mg PO BID #60 tablet Metoprolol Tartrate [Lopressor*] 25 mg PO BID #60 tab Sacubitril/Valsartan [Entresto 24 mg-26 mg Tablet] 1 tab PO BID #60 tab Patient Discharge Instructions: 1. Patient will follow up with his PCP in 1 week to follow up this hospitalization. 2. Patient presented with shortness of breath found to have new acute systolic CHF. Ejection fraction 20% with cardiomyopathy noted. Patient had evaluation by Cardiology. Cardiac stress test showed no stress-induced ischemia but confirmed ejection fraction of 20%. Patient now on new medication. Cardiology also recommended life vest. Life vest now in place. At discharge patient will continue with aspirin 81 mg daily , Entresto 24/26 mg 1 pill twice daily, Lasix 40 mg 1 pill once daily, and metoprolol 25 mg 1 pill twice daily. Patient will continue with a 1500 cc per day fluid restriction and low-salt diet. Patient will follow up with cardiology in 1-2 weeks to follow up this hospitalization. Patient may benefit with CHF rehab. This can be further addressed by cardiology. Patient will have to limit activity at discharge. Patient to be cleared to go back to work after seen by Cardiology as an outpatient. Education on CHF and cardiomyopathy will be provided. Patient instructed on use of life vest prior to discharge. 3. Patient with hypertension. Medication adjusted. Patient will continue with medication-metoprolol 25 mg 1 pill twice daily. Recommendation is to maintain blood pressures is 150/80. Further adjustment can be done by his PCP. 4. Patient with diabetes mellitus type 2, hemoglobin A1c 8.0. Medication adjusted during his stay. Will discontinue Trulicity as this may interfere with his CHF. Patient will continue with metformin 1000 mg 1 pill twice daily and glimepiride 4 mg 1 pill twice daily. Recommend to maintain blood sugars less than 140 fasting and less than 200 after meals. Further adjustment can be done by his PCP. 5. Patient with hyperlipidemia. New medication includes Lipitor 40 mg daily. 6. Patient with obstructive sleep apnea. Patient will need to continue with CPAP at home. Patient to follow up with pulmonology to further evaluate. 7. Patient had reported some dysphagia. Modified barium swallow showed no aspiration. Speech noted possible esophageal stasis. Recommendation is for the patient to follow up with GI as an outpatient to further evaluate. At discharge patient may continue with Pepcid 20 mg 1 pill twice daily. Diet: ADA Activity: Ad mirta Time spent managing pt's care (in minutes): 55
[2018-10-18 16:31] VITALS: BP 108/74; TEMP 97.4
== END 2018-10-18 16:25 | disposition home or self-care (01) | DRG 291 ==
LOC: ER 03:13 → ERHOLD 04:23 → 4TH 07:54 → OBSVTOIN 10-17 04:23
PROVIDERS: ADMIT Hospitalist; ATTEND Family Medicine
DX: I11.0 Hypertensive heart disease with heart failure (principal); I50.21 Acute systolic (congestive) heart failure; E11.9 Type 2 diabetes mellitus without complications; E78.5 Hyperlipidemia, unspecified; E66.9 Obesity, unspecified; Z68.32 Body mass index [BMI] 32.0-32.9, adult; G47.33 Obstructive sleep apnea (adult) (pediatric); R13.10 Dysphagia, unspecified; K22.8 Other specified diseases of esophagus; I42.9 Cardiomyopathy, unspecified; Z79.84 Long term (current) use of oral hypoglycemic drugs; M79.18 Myalgia, other site
CPT/HCPCS: 36415; 71045; 71275; 74230; 78452; 80048; 80061; 80076; 81003; 82962; 83036; 83690; 83735; 83880; 84484; 85025; 85379; 85610; 87086; 87088; 92611; 93005; 93017; 93306; 93970; 96372; 99285; A9500; G0378; J1650; J1940; J2270; J2405; J2785; Q9967

== ENCOUNTER 2020-10-07 06:30 | Day surgery (SDC) | payer BC ==
[2020-10-03 16:15] LABS: Basophils % 0.7 % (0-1.3); Hematocrit 46.4 % (39.6-49.0); Lymphocytes % 28.4 % (15.3-44.8); MPV 9.2 fL (7.6-11.3); RBC Red Blood Cell Count 5.87 M/uL (4.33-5.43)
--- NOTE | 2020-10-03 16:24 | RAD REPORT ---
EXAM DESCRIPTION: Jaylyn Haider (2 Views)10/03/2020 4:14 pm CLINICAL HISTORY: Preop for cardiac catheterization/hypertension COMPARISON: 2019 FINDINGS: The lungs appear clear of acute infiltrate. The heart is normal size IMPRESSION: No acute abnormalities displayed
[2020-10-03 16:29] LABS: Potassium 4.3 mmol/L (3.5-5.1)
[2020-10-03 17:13] LABS: Protime INR 0.94
[2020-10-07] MEDS ORDERED: HEPA 1000U/500MLS 1,000 UNIT/500 ML BAG IV ONE (07:02)
[2020-10-07] MEDS ORDERED: LIDOCAINE 1% 20 ML MDV ONE (07:02)
[2020-10-07] MEDS ORDERED: MIDAZOLAM HCL 2 MG/2 ML INJ ONE ×3 (07:03→07:57)
[2020-10-07] MEDS ORDERED: FENTANYL CITR 100 MCG/2 ML ONE (07:04)
[2020-10-07] MEDS ORDERED: ATROPINE SULF 1 MG/10 ML SYR IV ONE (07:04)
[2020-10-07] MEDS ORDERED: NA CHLORIDE 0.9% 0 ML ONE (07:04)
[2020-10-07] MEDS ORDERED: NA CHLORIDE 0.9% 500 ML ONE (07:12)
--- NOTE | 2020-10-07 09:25 | OP ---
Date of Procedure: 10/07/2020 Surgeon: Jeremiah Escobedo MD [employer]: Wanda Diaz. Admitted to my service as an outpatient to have a heart catheterization on 10/07/2020. Indication: New onset congestive heart failure, workup for possible defibrillator down the road. History Of Present Illness: Mr. Herman is 55, has hypertension, dyslipidemia, diabetes, new onset c ongestive heart failure, ejection fraction have ranged between 30% to 55%. He is on Entresto and bet a-blockers. Continues to have some dyspnea on exertion, admitted today as an outpatient. Description Of Procedure: Prepped and draped in the routine sterile fashion. In the slab installer he rec eived Versed and fentanyl for sedation. Using Seldinger technique, we put a 6-[place] sheath in the r ight common femoral artery successfully. Angiography there was normal. 10 cc of xylocaine were used . Angio-Seal was used to close the case. The patient will remain at bedrest for 2 hours before he g oes home and he will see me in the office in 2 weeks. Rocio catheter left and right were used to d o the coronary angiography. He had normal coronaries. He had a left dominant system. LV-gram was d one showing severe global hypokinesis with an ejection fraction of 30%-35%. Left ventricular end-nemesio stolic pressure was 12. He was in sinus rhythm. There were no complications. Blood Loss: 5 mL. Postoperative Diagnosis: Idiopathic cardiomyopathy, normal coronaries. We will continue Entresto. We will continue beta blockers. We will continue diuretics on an as-needed basis. He will go home t gab and he will see me in the office in 2 weeks. Plan: Medical therapy and possible defibrillator biventricular therapy down the road. NB/MODL Voice ID: [id number] Report ID: [id number]
[2020-10-07 09:39] VITALS: BP 126/82; TEMP 97; O2SAT 99
== END 2020-10-07 09:40 | disposition home or self-care (01) ==
LOC: CCL 06:30
DX: I11.0 Hypertensive heart disease with heart failure (principal); I50.22 Chronic systolic (congestive) heart failure; I42.0 Dilated cardiomyopathy; E78.2 Mixed hyperlipidemia; E11.9 Type 2 diabetes mellitus without complications
CPT/HCPCS: 85025; 80048; 36415; 85610; 82947; 85730; 71046; 93458; C1893; C1760; J2250 ×2; J3010; J7040; J1644; J0583

== ENCOUNTER 2021-02-07 21:35 | Emergency (ER) | payer BC ==
--- OUTSIDE RECORDS SUMMARY | 2021-02-07 21:38 | XMS REPORT | Continuity of Care Document ---
:1965 Author Organization [facility] t Address [address] [place] [address] [address]. [address] [place] [address] Care Team Providers Name Role Phone Lali MANZO, H Attending Clinician Problems This patient has no known problems. Allergies, Adverse Reactions, Alerts This patient has no known allergies or adverse reactions. Medications This patient has no known medications. Procedures This patient has no known procedures. Encounters Start End Encounter Admission Attending Care Care Encounter Source Date/Time Date/Time Type Type Clinicians Facility Department ID 2020-11-21 2020-11-21 Office LATRELL Escalera [id number] 13:38:58 14:36:57 Visit Andrez Raines [id number] [place] [id number] Katelyn [phone] [facility] Results This patient has no known results.
[2021-02-07 22:32] LABS: Absolute Lymphocytes (CBC) 1.5 K/uL (0.7-4.9); Basophils % 0.5 % (0-1.3); Hematocrit 43.3 % (39.6-49.0); Lymphocytes % 12.1 % (15.3-44.8); RBC Red Blood Cell Count 5.57 M/uL (4.33-5.43)
[2021-02-07 22:44] LABS: Protime INR 1.27
[2021-02-07] MEDS ORDERED: NA CHLORIDE 0.9% 1,000 ML ONE (22:45)
[2021-02-07] MEDS ORDERED: IBUPROFEN 400 MG TAB ONE (22:45)
[2021-02-07 22:54] LABS: ALT/SGPT 39 U/L (12-78); AST/SGOT 15 U/L (15-37); Albumin 3.4 g/dL (3.4-5.0); Alkaline Phosphatase 85 U/L (45-117); Amylase 83 U/L (25-115); BUN Blood Urea Nitrogen 13 mg/dL (7-18); Bicarbonate 24 mmol/L (21-32); Bilirubin Direct 0.3 mg/dL (0-0.2); Bilirubin Total 1.1 mg/dL (0.2-1.0); Creatine Phosphokinase 215 U/L (39-308); Glucose Level 240 mg/dL (74-106); Lipase 49 U/L (73-393); Potassium 4.3 mmol/L (3.5-5.1); Protein, Total 7.4 g/dL (6.4-8.2); Sodium Level 136 mmol/L (136-145); Troponin (Emerg Dept Use Only) < 0.02 ng/mL (0.0-0.045)
[2021-02-07 22:55] LABS: CKMB Creatine Kinase MB < 1.0 ng/mL (1.0-3.6)
[2021-02-08 00:06] LABS: Urine Blood Negative (Negative); Urine Glucose Trace (Negative); Urine Protein Negative (Negative)
[2021-02-08] MEDS ORDERED: NA CHLORIDE 0.9% 1,000 ML ONE (00:54)
--- NOTE | 2021-02-08 04:29 | ER ---
Nurse's Notes [facility] Name: Cornelius Herman Jr Age: 55 yrs Sex: Male : 1965 Arrival Date: 02/07/2021 Time: 21:37 Bed 23 Private MD: Yoandy Irwin T Diagnosis: Viral Syndrome Presentation: 02/07 21:58 Chief complaint: Patient states: he has been having a deep cough since Tuesday and he bb went to his doctor and was given a Zpack on Tuesday but he doesn't think it is helping. Coronavirus screen: cough unrelated to allergies. Ebola Screen: No symptoms or risks identified at this time. Initial Sepsis Screen: Does the patient meet any 2 criteria? RR > 20 per min. Temp <36.0*C (96.8*F)) or > 38.3*C (100.9*F). Yes Does the patient have a suspected source of infection? Yes: Productive cough/pneumonia. Risk Assessment: Do you want to hurt yourself or someone else? Patient reports no desire to harm self or others. Onset of symptoms was January 2021. 21:58 Method Of Arrival: Ambulatory bb 21:58 Acuity: MIKE 3 bb Triage Assessment: 22:15 Respiratory: rr5 Historical: - Allergies: 22:04 No Known Allergies; bb - Home Meds: 22:04 aspirin 81 mg Oral chew 1 tab once daily [Active]; Coreg 12.5 mg Oral tab 1 tab 2 times bb per day [Active]; glimepiride 2 mg Oral tab twice a day [Active]; metformin 750 mg Oral Tb24 1 tab twice a day [Active]; simvastatin 10 mg Oral tab 1 tab once daily [Active]; trulicity [Active]; testosterone [Active]; Entresto oral oral [Active]; Metoprolol Tartrate Oral [Active]; - PMHx: 22:04 Diabetes - NIDDM; Hyperlipidemia; Hypertension; "heart condition"; bb - Immunization history:: Adult Immunizations up to date, 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 - Social history:: Smoking status: Patient denies any tobacco usage or history of. Screenin:23 Abuse screen: Denies threats or abuse. Denies injuries from another. Nutritional rr5 screening: No deficits noted. Tuberculosis screening: No symptoms or risk factors identified. Fall Risk IV access (20 points). Total Lai Fall Scale indicates No Risk (0-24 pts). Assessment: 22:15 General: Appears in no apparent distress. Behavior is calm, cooperative, appropriate ea for age. Pain: Denies pain. Neuro: Level of Consciousness is awake, alert, obeys commands, Oriented to person, place, time. Cardiovascular: Patient's skin is warm and dry. Respiratory: Airway is patent Respiratory effort is even, Respiratory pattern is tachypnea. Derm: Skin is pink, warm \\T\\ dry. 23:00 Reassessment: Patient appears in no apparent distress at this time. Patient is alert, rr5 oriented x 3, equal unlabored respirations, skin warm/dry/pink. awaiting for results. 02/08 00:07 Reassessment: Patient appears in no apparent distress at this time. Patient is alert, rr5 oriented x 3, equal unlabored respirations, skin warm/dry/pink. Patient states symptoms have improved. 01:00 Reassessment: Patient appears in no apparent distress at this time. Patient is alert, rr5 oriented x 3, equal unlabored respirations, skin warm/dry/pink. repeat lactate done,awaiting for covid result Patient states symptoms have improved. 02:00 Reassessment: Patient appears in no apparent distress at this time. awaiting for covid rr5 result. 02:53 Reassessment: pt is alert and oriented x 4, states he is feeling a little better, IV bb site intact, pt awaiting results of diagnostic testing, family at bedside. 03:20 Reassessment: Patient appears in no apparent distress at this time. Patient is alert, rr5 oriented x 3, equal unlabored respirations, skin warm/dry/pink. PO challenge done, no nausea or vomiting reported Patient states symptoms have improved. 04:39 Reassessment: Patient appears in no apparent distress at this time. Patient is alert, rr5 oriented x 3, equal unlabored respirations, skin warm/dry/pink. discharge instruction given and explained without complaints made Patient states feeling better. Patient states symptoms have improved. Vital Signs: 02/07 21:58 BP 120 / 74; Pulse 115; Resp 24 S; Temp 101; Pulse Ox 95% on R/A; Weight 108.86 kg (R); bb Height 6 ft. 1 in. (185.42 cm) (R); Pain 3/10; 02/08 00:00 BP 122 / 65; Pulse 101; Resp 23; Temp 98.6; Pulse Ox 96% on R/A; rr5 01:58 BP 127 / 93; Pulse 99; Resp 22; Pulse Ox 94% on R/A; ea 02:55 BP 113 / 82; Pulse 100; Resp 20 S; Pulse Ox 94% on R/A; bb 03:20 BP 101 / 83; Pulse 103; Resp 19; Temp 97.8; Pulse Ox 95% ; rr5 04:39 BP 105 / 85; Pulse 101; Resp 17; Temp 99; Pulse Ox 96% ; rr5 02/07 21:58 Body Mass Index 31.66 (108.86 kg, 185.42 cm) bb ED Course: 02/07 21:37 Patient arrived in ED. es 21:37 Yoandy Irwin MD is Private Physician. es 22:02 Triage completed. bb 22:04 Arm band placed on Patient placed in an exam room, on a stretcher, on pulse oximetry. bb 22:07 Alec Turner MD is Attending Physician. [facility] 22:15 Marce Obrien RN is Primary Nurse. ea 22:15 Inserted saline lock: 18 gauge in left antecubital area, using aseptic technique. Blood rr5 collected. 22:15 First set of blood cultures drawn by me. rr5 22:23 Patient has correct armband on for positive identification. Placed in gown. Bed in low rr5 position. Call light in reach. Side rails up X2. monitor worker on. Pulse ox on. NIBP on. 22:46 Chest Single View XRAY In Process Unspecified. EDMS 02/08 00:06 Urine collected: clean catch specimen, clear. rr5 04:39 No provider procedures requiring assistance completed. IV discontinued, intact, rr5 bleeding controlled, No redness/swelling at site. Pressure dressing applied. Administered Medications: 02/07 22: Drug: Ibuprofen 800 mg Route: PO; rr5 22:28 Follow up: Response: No adverse reaction ea 22:27 Drug: NS 0.9% (30 ml/kg) 30 ml/kg Route: IV; Rate: bolus; Site: left antecubital; rr5 02/08 01:30 Follow up: Response: No adverse reaction; IV Status: Completed infusion; IV Intake: rr5 3000ml Intake: 01:30 IV: 3000ml; Total: 3000ml. rr5 Outcome: 04:29 Discharge ordered by . 7 04:39 Discharged to home ambulatory. rr5 04:39 Condition: stable 04:39 Discharge instructions given to patient, Instructed on discharge instructions, follow up and referral plans. Demonstrated understanding of instructions, follow-up care. 04:41 Patient left the ED. rr5 Signatures: Dispatcher [employer] Cathryn Leary Brenda, RN RN bb Marce Obrien RN RN Dax Chlidress RN RN rr5 Alec Turner MD MD Nicki
--- NOTE | 2021-02-08 04:29 | EDPHYS ---
Physician Documentation [facility] Name: Cornelius Herman Jr Age: 55 yrs Sex: Male : 1965 Arrival Date: 02/07/2021 Time: 21:37 Bed 23 Private MD: Yoandy Irwin T ED Physician Alec Turner HPI: 02/07 23:02 This 55 yrs old Black Male presents to ER via Ambulatory with complaints of Congestion, mh7 Cough. 23:02 The patient or guardian reports cough, that is intermittent, described as moderate, mh7 with productive sputum, that is yellow. Onset: The symptoms/episode began/occurred 4 day(s) ago. Severity of symptoms: At their worst the symptoms were moderate, 4 day(s) ago, in the emergency department the symptoms have improved, moderately. Modifying factors: The symptoms are alleviated by prescription meds, Z pack, the symptoms are aggravated by nothing. Associated signs and symptoms: Pertinent positives: fever, rhinorrhea, sore throat, Pertinent negatives: chest pain, diarrhea, ear ache, nausea, vomiting. The patient has been recently seen by a physician: the patient's primary care provider, 4 day(s) ago. Historical: - Allergies: 22:04 No Known Allergies; bb - Home Meds: 22:04 aspirin 81 mg Oral chew 1 tab once daily [Active]; Coreg 12.5 mg Oral tab 1 tab 2 times bb per day [Active]; glimepiride 2 mg Oral tab twice a day [Active]; metformin 750 mg Oral Tb24 1 tab twice a day [Active]; simvastatin 10 mg Oral tab 1 tab once daily [Active]; trulicity [Active]; testosterone [Active]; Entresto oral oral [Active]; Metoprolol Tartrate Oral [Active]; - PMHx: 22:04 Diabetes - NIDDM; Hyperlipidemia; Hypertension; "heart condition"; bb - Immunization history:: Adult Immunizations up to date, [employer]. - Social history:: Smoking status: Patient denies any tobacco usage or history of. ROS: 23:02 Eyes: Negative for injury, pain, redness, and discharge, Neck: Negative for injury, mh7 pain, and swelling, Cardiovascular: Negative for chest pain, palpitations, and edema, Abdomen/GI: Negative for abdominal pain, nausea, vomiting, diarrhea, and constipation, Back: Negative for injury and pain, : Negative for injury, bleeding, discharge, and swelling, MS/Extremity: Negative for injury and deformity, Skin: Negative for injury, rash, and discoloration, Neuro: Negative for headache, weakness, numbness, tingling, and seizure, Psych: Negative for depression, anxiety, suicide ideation, homicidal ideation, and hallucinations, Allergy/Immunology: Negative for hives, rash, and allergies, Endocrine: Negative for neck swelling, polydipsia, polyuria, polyphagia, and marked weight changes, Hematologic/Lymphatic: Negative for swollen nodes, abnormal bleeding, and unusual bruising. Exam: 23:02 Constitutional: This is a well developed, well nourished patient who is awake, alert, mh7 and in no acute distress. Head/Face: Normocephalic, atraumatic. Eyes: Pupils equal round and reactive to light, extra-ocular motions intact. Lids and lashes normal. Conjunctiva and sclera are non-icteric and not injected. Cornea within normal limits. Periorbital areas with no swelling, redness, or edema. ENT: Nares patent. No nasal discharge, no septal abnormalities noted. Tympanic membranes are normal and external auditory canals are clear. Oropharynx with no redness, swelling, or masses, exudates, or evidence of obstruction, uvula midline. Mucous membranes moist. Neck: Trachea midline, no thyromegaly or masses palpated, and no cervical lymphadenopathy. Supple, full range of motion without nuchal rigidity, or vertebral point tenderness. No Meningismus. Chest/axilla: Normal chest wall appearance and motion. Nontender with no deformity. No lesions are appreciated. 23:02 Respiratory: Lungs have equal breath sounds bilaterally, clear to auscultation and percussion. No rales, rhonchi or wheezes noted. No increased work of breathing, no retractions or nasal flaring. Abdomen/GI: Soft, non-tender, with normal bowel sounds. No distension or tympany. No guarding or rebound. No evidence of tenderness throughout. Back: No spinal tenderness. No costovertebral tenderness. Full range of motion. Skin: Warm, dry with normal turgor. Normal color with no rashes, no lesions, and no evidence of cellulitis. MS/ Extremity: Pulses equal, no cyanosis. Neurovascular intact. Full, normal range of motion. Neuro: Awake and alert, GCS 15, oriented to person, place, time, and situation. Cranial nerves II-XII grossly intact. Motor strength 5/5 in all extremities. Sensory grossly intact. Cerebellar exam normal. Normal gait. Psych: Awake, alert, with orientation to person, place and time. Behavior, mood, and affect are within normal limits. 23:02 Cardiovascular: Rate: tachycardic, Rhythm: regular, Pulses: no pulse deficits are appreciated, Heart sounds: normal, normal S1and S2, Edema: is not appreciated, JVD: is not appreciated. Vital Signs: 21:58 BP 120 / 74; Pulse 115; Resp 24 S; Temp 101; Pulse Ox 95% on R/A; Weight 108.86 kg (R); bb Height 6 ft. 1 in. (185.42 cm) (R); Pain 3/10; 02/08 00:00 BP 122 / 65; Pulse 101; Resp 23; Temp 98.6; Pulse Ox 96% on R/A; rr5 01:58 BP 127 / 93; Pulse 99; Resp 22; Pulse Ox 94% on R/A; ea 02:55 BP 113 / 82; Pulse 100; Resp 20 S; Pulse Ox 94% on R/A; bb 03:20 BP 101 / 83; Pulse 103; Resp 19; Temp 97.8; Pulse Ox 95% ; rr5 04:39 BP 105 / 85; Pulse 101; Resp 17; Temp 99; Pulse Ox 96% ; rr5 02/07 21:58 Body Mass Index 31.66 (108.86 kg, 185.42 cm) MDM: 04:26 Differential Diagnosis: Bronchitis Influenza Upper Respiratory Infection Pharyngitis mh7 Viral Syndrome Pneumonia. Data reviewed: vital signs, nurses notes, lab test result(s), cardiac enzymes, CBC, electrolytes, urinalysis, EKG, radiologic studies, plain films. Data interpreted: Pulse oximetry: on room air is 96 %. Interpretation: normal. Counseling: I had a detailed discussion with the patient and/or guardian regarding: the historical points, exam findings, and any diagnostic results supporting the discharge/admit diagnosis, lab results, radiology results, the need for outpatient follow up, the need for further work-up and treatment in the hospital, the need to transfer to another facility, to return to the emergency department if symptoms worsen or persist or if there are any questions or concerns that arise at home. Response to treatment: the patient's symptoms have markedly improved after treatment. 04:29 Patient medically screened. [facility] 02/07 22:16 Order name: Amylase, Serum 02/07 22:16 Order name: Basic Metabolic Panel 02/07 22:16 Order name: Blood Culture Adult (2) 02/07 22:16 Order name: CBC with Diff 02/07 22:16 Order name: Ckmb 02/07 22:16 Order name: CPK 02/07 22:16 Order name: Lactate 02/07 22:16 Order name: LFT's 02/07 22:16 Order name: Lipase; Complete Time: 23:33 02/07 22:16 Order name: Procalcitonin; Complete Time: 23:33 02/07 22:16 Order name: Protime (+inr); Complete Time: 23:33 02/07 22:16 Order name: Ptt, Activated; Complete Time: 23:33 02/07 22:16 Order name: Troponin (emerg Dept Use Only); Complete Time: 23:33 02/07 22:16 Order name: Amylase; Complete Time: 23:33 [facility] 02/07 22:16 Order name: Basic Metabolic Panel; Complete Time: 23:33 [facility] 02/07 22:16 Order name: Blood Culture [facility] 02/07 22:16 Order name: CBC with Automated Diff; Complete Time: 23:33 [facility] 02/07 22:16 Order name: CKMB Creatine Kinase MB; Complete Time: 23:33 [facility] 02/07 22:16 Order name: Creatine Phosphokinase; Complete Time: 23:33 [facility] 02/07 22:16 Order name: Lactate; Complete Time: 23:33 [facility] 02/07 22:16 Order name: Liver (Hepatic) Function; Complete Time: 23:33 [facility] 02/07 22:21 Order name: Flu; Complete Time: 02:41 [facility] 02/07 22:26 Order name: Rapid Strep; Complete Time: 02:15 [facility] 02/08 00:06 Order name: Urine Dipstick-Ancillary; Complete Time: 02:15 [facility] 02/08 00:07 Order name: Urine Dipstick-Ancillary [facility] 02/08 00:25 Order name: Throat Culture [facility] 02/08 02:17 Order name: Lactate Sepsis 2 HR Follow-up; Complete Time: 02:41 [facility] 02/08 02:19 Order name: SARS-COV-2 RT PCR; Complete Time: 02:41 [facility] 02/07 22:16 Order name: Chest Single View XRAY 02/07 22:16 Order name: Accucheck; Complete Time: : 02/07 22:16 Order name: Cardiac monitoring; Complete Time: 22:20 02/07 22:16 Order name: EKG - Nurse/Tech; Complete Time: 22: 02/07 22:16 Order name: IV Saline Lock - Large Bore; Complete Time: : 02/07 22:16 Order name: Labs collected and sent; Complete Time: : 02/07 22:16 Order name: O2 Per Protocol; Complete Time: : 02/07 22:16 Order name: O2 Sat Monitoring; Complete Time: : 02/07 22:16 Order name: Urine Dipstick-Ancillary (obtain specimen); Complete Time: 00:05 02/08 03:07 Order name: [place] Screen Profile [facility] 02/08 03:07 Order name: [place] Screen; Complete Time: 04:25 EDMI Administered Medications: 02/07 22:26 Drug: Ibuprofen 800 mg Route: PO; rr5 22:28 Follow up: Response: No adverse reaction 22: Drug: NS 0.9% (30 ml/kg) 30 ml/kg Route: IV; Rate: bolus; Site: left antecubital; rr5 02/08 01:30 Follow up: Response: No adverse reaction; IV Status: Completed infusion; IV Intake: rr5 3000ml Disposition: 02/08/21 04:29 Discharged to Home. Impression: Viral Syndrome. - Condition is Stable. - Discharge Instructions: Viral Respiratory Infection, [id number]. - Medication Reconciliation Form, Thank You Letter, Antibiotic Education, Prescription Opioid Use form. - Follow up: Private Physician; When: 1 - 2 days; Reason: Worsening of condition, Recheck today's complaints, Continuance of care, Re-evaluation by your physician. - Problem is new. - Symptoms have improved. Signatures: Dispatcher [employer] EDMS Dulce Banda, RN RN Marce Johnson, RN RN Dax Childress RN RN rr5 Alec Turner MD MD 7 Corrections: (The following items were deleted from the chart) 01:03 02/07 22:22 CORONAVIRUS+ ordered. [facility] 02/08 04:41 04:29 02/08/2021 04:29 Discharged to Home. Impression: Viral Syndrome. Condition is rr5 Stable. Forms are Medication Reconciliation Form, Thank You Letter, Antibiotic Education, Prescription Opioid Use. Follow up: Private Physician; When: 1 - 2 days; Reason: Worsening of condition, Recheck today's complaints, Continuance of care, Re-evaluation by your physician. Problem is new. Symptoms have improved. 7
[2021-02-08 04:55] VITALS: BP 105/85; TEMP 99; O2SAT 96
--- NOTE | 2021-02-09 11:34 | RAD REPORT ---
EXAM DESCRIPTION: Jaylyn Single View02/07/2021 10:46 pm CLINICAL HISTORY: The patient is 53 years old and is Male; Chest pain TECHNIQUE: Axial computed tomographic angiography images of the chest with intravenous contrast [facility] pulmonary embolism protocol. Sagittal and coronal reformatted images were created and reviewed. Sagittal and coronal reformatted images were created and reviewed. This CT exam was performed [facility] one or more of the following dose reduction techniques: automated exposure control, adjustment of the mA and/or kV according to patient size, and/or use of iterative reconstruction technique. MIP reconstructed images were created and reviewed. COMPARISON: No relevant prior studies available. FINDINGS: Pulmonary arteries: There are no obvious filling defects identified within the pulmonary arteries to suggest pulmonary embolism. Aorta: No acute findings. No thoracic aortic aneurysm. Lungs: Minimal scattered groundglass opacities are present. Pleural space: Small bilateral pleural effusions are present. No pneumothorax. Heart: The heart is enlarged. There is a trace pericardial effusion. No evidence of RV dysfunction. Bones/joints: No acute fracture. No dislocation. Soft tissues: Unremarkable. Lymph nodes: Unremarkable. No enlarged lymph nodes. IMPRESSION: 1. No evidence of pulmonary embolism. 2. Cardiomegaly with small pleural effusions and findings suggestive of mild venous congestion. Electronically signed by: Ranjana Gabriel MD 10/15/2018 6:46 AM HEEL SPRAYER Due to temporary technical issues with the PACS/Fluency reporting system, reports are being signed by the in house radiologist without review as a courtesy to ensure prompt reporting. The interpreting r adiologist is fully responsible for the content of the report.
== END 2021-02-08 04:41 | disposition home or self-care (01) ==
LOC: ER 21:35
DX: B34.9 Viral infection, unspecified (principal); Z20.822 Contact with and (suspected) exposure to COVID-19; E11.9 Type 2 diabetes mellitus without complications; E78.5 Hyperlipidemia, unspecified; I10 Essential (primary) hypertension; Z79.84 Long term (current) use of oral hypoglycemic drugs
CPT/HCPCS: 96365; 87040 ×2; 87070; 85025; 80048; 36415; 82150; 82550; 86308; 85610; 80076; 87081; 83605 ×2; 85730; 81003; 84484; 82553; 83690; 84145; 87804 ×2; 71045; 99284; 96366; U0003; J7030 ×2

== ENCOUNTER 2022-08-18 02:57 | Emergency (ER) | payer BC ==
--- OUTSIDE RECORDS SUMMARY | 2022-08-18 03:04 | XMS REPORT | Continuity of Care Document ---
:[address] [facility] t Address [address] [place] [address] Dr. Martin [address] [place] [id number] Care Team Providers Name Role Phone LUPE RAMON Primary Care Physician Unavailable ANDREZ BRIZUELA Attending Clinician Unavailable LUPE RAMON Attending Clinician Unavailable Hanna Chew MD Attending Clinician HANNA CHEW Attending Clinician Unavailable Andrez Brizuela MD Attending Clinician Doctor Unassigned, [place] Attending Clinician Unavailable MAYI DENIS Attending Clinician Unavailable Mayi Teran Attending Clinician Lab, Ang - Db Attending Clinician Unavailable Nurse, [facility] Attending Clinician Unavailable Unknown, Attending Attending Clinician Unavailable KATHIE ALEJANDRE Attending Clinician Unavailable Lety Daniel Attending Clinician Kristy Langston MD Attending Clinician LETY MICHAEL Attending Clinician Unavailable JENNA CARRILLO Attending Clinician Unavailable Jenna Vaughan Attending Clinician Jocelin Jimenez RN Attending Clinician Unavailable Only, Ang Db Test Attending Clinician Unavailable BRUCE MARTINI Attending Clinician Unavailable MD BRUCE MARTINI Attending Clinician Unavailable VEGA HARRISON Attending Clinician Unavailable HANNA CHEW Admitting Clinician Unavailable Hanna Chew MD Admitting Clinician BRUCE MARTINI Admitting Clinician Unavailable MD BRUCE MARTINI Admitting Clinician Unavailable Payers Payer Name Policy Type Policy Number Effective Date Expiration Date S eryn Problems Condition Condition Condition Status Onset Resolution Last Treating Co mments Source Name Details Category Date Date Treatment Clinician Date Obesity Obesity Disease Active 2021-08 Univers (BMI (BMI 2-15 ity of 30-39.9) 30-39.9) 00:00: [place] [address] Medical Branch Encounter Encounter Disease Active 2021-08 Overview: Univers for for 1-16 Formattin ity of colorectal colorectal 00:00: g of this [place] cancer cancer 00 note Medical screening screening might be Br anch different from the original. 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 0-17 it y of athy athy 00:00: [place] [address] Medical Branch Hyperlipid Hyperlipid Disease Active 2021-08 U nivers emia, emia, 0-17 ity of unspecifie [place]ie [place] 00 Medical hyperlipid hyperlipid Br anch emia type emia type Sleep Sleep Disease Active 2021-08 Univers apnea, apnea, 0-17 ity of unspecifie [place]ie [place] d type 00 Medical Branch Congestive Congestive Disease Active 2020-08 M ethodi cardiomyop cardiomyop 2-30 st athy athy 00:00: [facility] 00 l No known No known Disease Unive rs active active ity of problems problems [facility] [place] [facility] Allergies, Adverse Reactions, Alerts Allergy Allergy Status Severity Reaction(s) Onset Inactive Treating Comm ents Source Name Type Date Date Clinician NO KNOWN Drug Active Univers ALLERGIE Class ity of S [facility] [place] [facility] Social History Social Habit Start Date Stop Date Quantity Comments Source History SDOH University o f Alcohol Frequency [place] M edical Branch History SDOH University o f Alcohol Std [place] [facility] Drinks Branch History SDOH University o f Alcohol Binge [place] [facility] al Branch Alcohol intake 2022-07-29 2022-07-29 Current drinker Unive rsity of 00:00:00 00:00:00 of alcohol [place] [facility] (finding) Branch Exposure to 2022-07-16 2022-07-26 Not sure [facility]-CoV-2 00:00:00 13:07:00 [facility] (event) [place] Alcohol Comment 2022-05-31 2022-05-31 Not often, a beer Un iversity of 00:00:00 00:00:00 1X a month [facility] [place] [facility] Tobacco use and 2021-11-27 2021-11-27 Smokeless tobacco Un iversity of exposure 00:00:00 00:00:00 non-user [facility] [place] [facility] Sex [birth year] [employer] 00:00:00 00:00:00 Hospital Smoking Status Start Date Stop Date Source Tobacco smoking consumption [facility] Medications Ordered Filled Start Stop Current Ordering Indication Dosage Frequency Signature Comments Components Source Medication Medication Date Date Medication? Clinician (SIG) Name Name water for 2021-08- No PRN, Univers irrigation -29 07- Starting ity of irrigation 14:15: 15:26 [place] solution 00 :58 07/29/22 Medical at 0815, Branch Until [place] 07/29/22 at 0926, Routine, Intra-op simethicone 2021-08- No PRN, Unive rs (GAS RELIEF 2-29 07-15 Starting ity of (SIMETHICON 14:14: 15:26 on [place] Dat as E)) 40 00 :58 07/29/22 Medical mg/0.6 mL at 0814, Branch drops Until [place] 07/29/22 at 0926, Routine, Intra-op lactated 2021-08- No 1000mL at 42 Unive rs ringers IV 2-15 12-15 mL/hr, ity of infusion 13:30: 13:48 1,000 mL, Dat as 1,000 mL 00 :00 IV Medical Infusion, Branch ONCE, 1 dose, On [place] 07/29/22 at 0730, Routine, DSU Pre-op lactated 2021-08- No 1000mL at 42 Unive rs ringers IV 2-15 12-15 mL/hr, ity of infusion 13:30: 13:48 1,000 mL, Dat as 1,000 mL 00 :00 IV Medical Infusion, Branch ONCE, 1 dose, On [place] 12/15/22 at 0730, Routine, DSU Pre-op aspirin 81 2021-08 Yes 81mg Take 81 mg U nivers mg chewable 2-15 by mouth ity of tablet 10:22: daily. Medical Branch TESTOSTERON 2021-08 Yes 140mg 140 mg by Univers E CYPIONATE 2-15 Intramuscu it y of IM 10:22: lar route [place] [address] weekly. Medical Branch aspirin 81 2021-08 Yes 81mg Take 81 mg U nivers mg chewable 2-15 by mouth ity of tablet 10:22: daily. Medical Branch TESTOSTERON 2021-08 Yes 140mg 140 mg by Univers E CYPIONATE 2-15 Intramuscu it y of IM 10:22: lar route [place] [address] weekly. Medical Branch aspirin 81 2021-08 Yes 81mg Take 81 mg U nivers mg chewable 2-15 by mouth ity of tablet 10:22: daily. Medical Branch TESTOSTERON 2021-08 Yes 140mg 140 mg by Univers E CYPIONATE 2-15 Intramuscu it y of IM 10:22: lar route [place] [address] weekly. Medical Branch aspirin 81 2021-08 Yes 81mg Take 81 mg U nivers mg chewable 2-15 by mouth ity of tablet 10:22: daily. Medical Branch TESTOSTERON 2021-08 Yes 140mg 140 mg by Univers E CYPIONATE 2-15 Intramuscu it y of IM 10:22: lar route [place] [address] weekly. Medical Branch aspirin 81 2021-08 Yes 81mg Take 81 mg U nivers mg chewable 2-15 by mouth ity of tablet 10:22: daily. Medical Branch TESTOSTERON 2021-08 Yes 140mg 140 mg by Univers E CYPIONATE 2-15 Intramuscu it y of IM 10:22: lar route [place] [address] weekly. Medical Branch semaglutide 2021-08 Yes [id number] .5mg inject 0.5 Univers (OZEMPIC) 2-15 mg under ity of 0.25 mg or 00:00: the skin Dat as 0.5 mg(2 00 weekly. Medical mg/1.5 mL) Branch PnIj semaglutide 2021-08 Yes [id number] .5mg inject 0.5 Univers (OZEMPIC) 2-15 mg under ity of 0.25 mg or 00:00: the skin Dat as 0.5 mg(2 00 weekly. Medical mg/1.5 mL) Branch PnIj semaglutide 2021-08 Yes [id number] .5mg inject 0.5 Univers (OZEMPIC) 2-15 mg under ity of 0.25 mg or 00:00: the skin Dat as 0.5 mg(2 00 weekly. Medical mg/1.5 mL) Branch PnIj TESTOSTERON 2021-08 Yes 140mg 140 mg by Univers E CYPIONATE 0-17 Intramuscu it y of IM 11:50: lar route [place] 38 weekly. Medical Branch TESTOSTERON 2021-08 Yes 140mg 140 mg by Univers E CYPIONATE 0-17 Intramuscu it y of IM 11:50: lar route [place] 38 weekly. Medical Branch TESTOSTERON 2021-08 Yes 140mg 140 mg by Univers E CYPIONATE 0-17 Intramuscu it y of IM 11:50: lar route [place] 38 weekly. Medical Branch TESTOSTERON 2021-08 Yes 140mg 140 mg by Univers E CYPIONATE 0-17 Intramuscu it y of IM 11:50: lar route [place] 38 weekly. Medical Branch TESTOSTERON 2021-08 Yes 140mg 140 mg by Univers E CYPIONATE 0-17 Intramuscu it y of IM 11:50: lar route [place] 38 weekly. Medical Branch TESTOSTERON 2021-08 Yes 140mg 140 mg by Univers E CYPIONATE 0-17 Intramuscu it y of IM 11:50: lar route [place] 38 weekly. Medical Branch TESTOSTERON 2021-08 Yes 140mg 140 mg by Univers E CYPIONATE 0-17 Intramuscu it y of IM 11:50: lar route [place] 38 weekly. Medical Branch TESTOSTERON 2021-08 Yes 140mg 140 mg by Univers E CYPIONATE 0-17 Intramuscu it y of IM 11:50: lar route [place] 38 weekly. Medical Branch TESTOSTERON 2021-08 Yes 140mg 140 mg by Univers E CYPIONATE 0-17 Intramuscu it y of IM 11:50: lar route [place] 38 weekly. Medical Branch TESTOSTERON 2021-08 Yes 140mg 140 mg by Univers E CYPIONATE 0-17 Intramuscu it y of IM 11:50: lar route [place] 38 weekly. Medical Branch TESTOSTERON 2021-08 Yes 140mg 140 mg by Univers E CYPIONATE 0-17 Intramuscu it y of IM 11:50: lar route [place] [address] weekly. Medical Branch TESTOSTERON 2021-08 Yes 140mg 140 mg by Univers E CYPIONATE 0-17 Intramuscu it y of IM 11:50: lar route [place] [address] weekly. Medical Branch TESTOSTERON 2021-08 Yes 140mg 140 mg by Univers E CYPIONATE 0-17 Intramuscu it y of IM 11:50: lar route [place] [address] weekly. Medical Branch semaglutide 2021-08 Yes [id number] .5mg inject 0.5 Univers (OZEMPIC) 0-07 mg under ity of 0.25 mg or 00:00: the skin Dat as 0.5 mg(2 00 weekly. Medical mg/1.5 mL) Branch PnIj metFORMIN 2021-08 Yes [id number] 1000mg Take 1 Univers 1,000 mg 0-07 tablet by ity of tablet 00:00: mouth in [place] [address] the Medical morning Branch and 1 tablet in the evening. Take with meals. glimepiride 2021-08 Yes [id number] 4mg Take 1 Univers 4 mg tablet 0-07 tablet by ity of 00:00: mouth in [place] [address] the Medical morning Branch and 1 tablet in the evening. semaglutide 2021-08 Yes [id number] .5mg inject 0.5 Univers (OZEMPIC) 0-07 mg under ity of 0.25 mg or 00:00: the skin Dat as 0.5 mg(2 00 weekly. Medical mg/1.5 mL) Branch PnIj metFORMIN 2021-08 Yes [id number] 1000mg Take 1 Univers 1,000 mg 0-07 tablet by ity of tablet 00:00: mouth in [place] [address] the Medical morning Branch and 1 tablet in the evening. Take with meals. glimepiride 2021-08 Yes [id number] 4mg Take 1 Univers 4 mg tablet 0-07 tablet by ity of 00:00: mouth in [place] [address] the Medical morning Branch and 1 tablet in the evening. semaglutide 2021-08 Yes [id number] .5mg inject 0.5 Univers (OZEMPIC) 0-07 mg under ity of 0.25 mg or 00:00: the skin Dat as 0.5 mg(2 00 weekly. Medical mg/1.5 mL) Branch PnIj metFORMIN 2021-08 Yes [id number] 1000mg Take 1 Univers 1,000 mg 0-07 tablet by ity of tablet 00:00: mouth in [place] [address] the [facility] morning [place] and 1 tablet in the evening. Take with meals. glimepiride 2021-08 Yes [id number] 4mg Take 1 Univers 4 mg tablet 0-07 tablet by ity of 00:00: mouth in [place] [address] the [facility] morning [place] and 1 tablet in the evening. semaglutide 2021-08 Yes [id number] .5mg inject 0.5 Univers (OZEMPIC) 0-07 mg under ity of 0.25 mg or 00:00: the skin Dat as 0.5 mg(2 00 weekly. Medical mg/1.5 mL) Branch [facility] metFORMIN 2021-08 Yes [id number] 1000mg Take 1 Univers 1,000 mg 0-07 tablet by ity of tablet 00:00: mouth in [place] [address] the [facility] morning [place] and 1 tablet in the evening. Take with meals. glimepiride 2021-08 Yes [id number] 4mg Take 1 Univers 4 mg tablet 0-07 tablet by ity of 00:00: mouth in [address] morning [place] and 1 tablet in the evening. semaglutide 2021-08 Yes [id number] .5mg inject 0.5 Univers (OZEMPIC) 0-07 mg under ity of 0.25 mg or 00:00: the skin [place] 0.5 mg(2 00 weekly. Medical mg/1.5 mL) Branch [facility] metFORMIN 2021-08 Yes [id number] 1000mg Take 1 Univers 1,000 mg 0-07 tablet by ity of tablet 00:00: mouth in [address] morning [place] and 1 tablet in the evening. Take with meals. glimepiride 2021-08 Yes [id number] 4mg Take 1 Univers 4 mg tablet 0-07 tablet by ity of 00:00: mouth in [address] morning [place] and 1 tablet in the evening. semaglutide 2021-08 Yes [id number] .5mg inject 0.5 Univers (OZEMPIC) 0-07 mg under ity of 0.25 mg or 00:00: the skin Dat as 0.5 mg(2 00 weekly. Medical mg/1.5 mL) Branch [facility] metFORMIN 2021-08 Yes [id number] 1000mg Take 1 Univers 1,000 mg 0-07 tablet by ity of tablet 00:00: mouth in [place] [address] the [facility] morning [place] and 1 tablet in the evening. Take with meals. glimepiride 2021-08 Yes [id number] 4mg Take 1 Univers 4 mg tablet 0-07 tablet by ity of 00:00: mouth in [place] [address] the [facility] morning [place] and 1 tablet in the evening. semaglutide 2021-08 Yes [id number] .5mg inject 0.5 Univers (OZEMPIC) 0-07 mg under ity of 0.25 mg or 00:00: the skin Dat as 0.5 mg(2 00 weekly. Medical mg/1.5 mL) Branch [facility] metFORMIN 2021-08 Yes [id number] 1000mg Take 1 Univers 1,000 mg 0-07 tablet by ity of tablet 00:00: mouth in [place] [address] the [facility] morning [place] and 1 tablet in the evening. Take with meals. glimepiride 2021-08 Yes [id number] 4mg Take 1 Univers 4 mg tablet 0-07 tablet by ity of 00:00: mouth in [address] morning [place] and 1 tablet in the evening. semaglutide 2021-08 Yes [id number] .5mg inject 0.5 Univers (OZEMPIC) 0-07 mg under ity of 0.25 mg or 00:00: the skin Dat as 0.5 mg(2 00 weekly. Medical mg/1.5 mL) Branch [facility] metFORMIN 2021-08 Yes [id number] 1000mg Take 1 Univers 1,000 mg 0-07 tablet by ity of tablet 00:00: mouth in [address] morning [place] and 1 tablet in the evening. Take with meals. glimepiride 2021-08 Yes [id number] 4mg Take 1 Univers 4 mg tablet 0-07 tablet by ity of 00:00: mouth in [address] morning [place] and 1 tablet in the evening. semaglutide 2021-08 Yes [id number] .5mg inject 0.5 Univers (OZEMPIC) 0-07 mg under ity of 0.25 mg or 00:00: the skin [place] 0.5 mg(2 00 weekly. Medical mg/1.5 mL) Branch PnIj metFORMIN 2021-08 Yes [id number] 1000mg Take 1 Univers 1,000 mg 0-07 tablet by ity of tablet 00:00: mouth in [place] [address] the [facility] morning [place] and 1 tablet in the evening. Take with meals. glimepiride 2021-08 Yes [id number] 4mg Take 1 Univers 4 mg tablet 0-07 tablet by ity of 00:00: mouth in [place] [address] the [facility] morning [place] and 1 tablet in the evening. semaglutide 2021-08 Yes [id number] .5mg inject 0.5 Univers (OZEMPIC) 0-07 mg under ity of 0.25 mg or 00:00: the skin Dat as 0.5 mg(2 00 weekly. Medical mg/1.5 mL) Branch [facility] metFORMIN 2021-08 Yes [id number] 1000mg Take 1 Univers 1,000 mg 0-07 tablet by ity of tablet 00:00: mouth in [place] [address] the [facility] morning [place] and 1 tablet in the evening. Take with meals. glimepiride 2021-08 Yes [id number] 4mg Take 1 Univers 4 mg tablet 0-07 tablet by ity of 00:00: mouth in [address] and 1 tablet in the evening. semaglutide 2021-08 Yes [id number] .5mg inject 0.5 Univers (OZEMPIC) 0-07 mg under ity of 0.25 mg or 00:00: the skin Dat as 0.5 mg(2 00 weekly. Medical mg/1.5 mL) Branch [facility] metFORMIN 2021-08 Yes [id number] 1000mg Take 1 Univers 1,000 mg 0-07 tablet by ity of tablet 00:00: mouth in [address] and 1 tablet in the evening. Take with meals. glimepiride 2021-08 Yes [id number] 4mg Take 1 Univers 4 mg tablet 0-07 tablet by ity of 00:00: mouth in [address] morning [place] and 1 tablet in the evening. semaglutide 2021-08 Yes [id number] .5mg inject 0.5 Univers (OZEMPIC) 0-07 mg under ity of 0.25 mg or 00:00: the skin Dat as 0.5 mg(2 00 weekly. Medical mg/1.5 mL) Branch PnIj metFORMIN 2021-08 Yes [id number] 1000mg Take 1 Univers 1,000 mg 0-07 tablet by ity of tablet 00:00: mouth in [place] [address] the Medical morning Branch and 1 tablet in the evening. Take with meals. glimepiride 2021-08 Yes [id number] 4mg Take 1 Univers 4 mg tablet 0-07 tablet by ity of 00:00: mouth in [place] [address] the [facility] morning Branch and 1 tablet in the evening. semaglutide 2021-08 Yes [id number] .5mg inject 0.5 Univers (OZEMPIC) 0-07 mg under ity of 0.25 mg or 00:00: the skin Dat as 0.5 mg(2 00 weekly. Medical mg/1.5 mL) Branch Ij metFORMIN 2021-08 Yes [id number] 1000mg Take 1 Univers 1,000 mg 0-07 tablet by ity of tablet 00:00: mouth in [place] [address] the [facility] morning [place] and 1 tablet in the evening. Take with meals. glimepiride 2021-08 Yes [id number] 4mg Take 1 Univers 4 mg tablet 0-07 tablet by ity of 00:00: mouth in [place] [address] the [facility] morning [place] and 1 tablet in the evening. semaglutide 2021-08 Yes [id number] .5mg inject 0.5 Univers (OZEMPIC) 0-07 mg under ity of 0.25 mg or 00:00: the skin Dat as 0.5 mg(2 00 weekly. Medical mg/1.5 mL) Branch [facility] metFORMIN 2021-08 Yes [id number] 1000mg Take 1 Univers 1,000 mg 0-07 tablet by ity of tablet 00:00: mouth in [address] morning [place] and 1 tablet in the evening. Take with meals. glimepiride 2021-08 Yes [id number] 4mg Take 1 Univers 4 mg tablet 0-07 tablet by ity of 00:00: mouth in [place] [address] the [facility] morning [place] and 1 tablet in the evening. semaglutide 2021-08 Yes [id number] .5mg inject 0.5 Univers (OZEMPIC) 0-07 mg under ity of 0.25 mg or 00:00: the skin Dat as 0.5 mg(2 00 weekly. Medical mg/1.5 mL) Branch Ij metFORMIN 2021-08 Yes [id number] 1000mg Take 1 Univers 1,000 mg 0-07 tablet by ity of tablet 00:00: mouth in [place] [address] the [facility] morning [place] and 1 tablet in the evening. Take with meals. glimepiride 2021-08 Yes [id number] 4mg Take 1 Univers 4 mg tablet 0-07 tablet by ity of 00:00: mouth in [place] [address] the [facility] morning [place] and 1 tablet in the evening. semaglutide 2021-08 Yes [id number] .5mg inject 0.5 Univers (OZEMPIC) 0-07 mg under ity of 0.25 mg or 00:00: the skin Dat as 0.5 mg(2 00 weekly. Medical mg/1.5 mL) Branch PnIj metFORMIN 2021-08 Yes [id number] 1000mg Take 1 Univers 1,000 mg 0-07 tablet by ity of tablet 00:00: mouth in [place] [address] the [facility] morning [place] and 1 tablet in the evening. Take with meals. glimepiride 2021-08 Yes [id number] 4mg Take 1 Univers 4 mg tablet 0-07 tablet by ity of 00:00: mouth in [address] and 1 tablet in the evening. semaglutide 2021-08 Yes [id number] .5mg inject 0.5 Univers (OZEMPIC) 0-07 mg under ity of 0.25 mg or 00:00: the skin Dat as 0.5 mg(2 00 weekly. Medical mg/1.5 mL) Branch PnIj metFORMIN 2021-08 Yes [id number] 1000mg Take 1 Univers 1,000 mg 0-07 tablet by ity of tablet 00:00: mouth in [address] and 1 tablet in the evening. Take with meals. glimepiride 2021-08 Yes [id number] 4mg Take 1 Univers 4 mg tablet 0-07 tablet by ity of 00:00: mouth in [address] morning [place] and 1 tablet in the evening. semaglutide 2021-08 Yes [id number] .[id number] inject 0.5 Univers (OZEMPIC) 0-07 mg under ity of 0.25 mg or 00:00: the skin Dat as 0.5 mg(2 00 weekly. Medical mg/1.5 mL) Branch PnIj metFORMIN 2021-08 Yes [id number] 1000mg Take 1 Univers 1,000 mg 0-07 tablet by ity of tablet 00:00: mouth in [address] and 1 tablet in the evening. Take with meals. glimepiride 2021-08 Yes [id number] 4mg Take 1 Univers 4 mg tablet 0-07 tablet by ity of 00:00: mouth in [address] and 1 tablet in the evening. semaglutide 2021-08 Yes [id number] .5mg inject 0.5 Univers (OZEMPIC) 0-07 mg under ity of 0.25 mg or 00:00: the skin Dat as 0.5 mg(2 00 weekly. Medical mg/1.5 mL) Branch PnIj metFORMIN 2021-08 Yes [id number] 1000mg Take 1 Univers 1,000 mg 0-07 tablet by ity of tablet 00:00: mouth in [address] and 1 tablet in the evening. Take with meals. glimepiride 2021-08 Yes [id number] 4mg Take 1 Univers 4 mg tablet 0-07 tablet by ity of 00:00: mouth in [address] and 1 tablet in the evening. metFORMIN 2021-08 Yes [id number] 1000mg Take 1 Univers 1,000 mg 0-07 tablet by ity of tablet 00:00: mouth in [address] and 1 tablet in the evening. Take with meals. glimepiride 2021-08 Yes [id number] 4mg Take 1 Univers 4 mg tablet 0-07 tablet by ity of 00:00: mouth in [address] and 1 tablet in the evening. metFORMIN 2021-08 Yes [id number] 1000mg Take 1 Univers 1,000 mg 0-07 tablet by ity of tablet 00:00: mouth in [address] and 1 tablet in the evening. Take with meals. glimepiride 2021-08 Yes [id number] 4mg Take 1 Univers 4 mg tablet 0-07 tablet by ity of 00:00: mouth in [address] and 1 tablet in the evening. metFORMIN 2021-08 Yes [id number] 1000mg Take 1 Univers 1,000 mg 0-07 tablet by ity of tablet 00:00: mouth in [place] 00 the Medical morning Branch and 1 tablet in the evening. Take with meals. glimepiride 2021-08 Yes [id number] 4mg Take 1 Univers 4 mg tablet 0-07 tablet by ity of 00:00: mouth in [place] 00 the Medical morning Branch and 1 tablet in the evening. metFORMIN 2021-08 Yes [id number] 1000mg Take 1 Univers 1,000 mg 0-07 tablet by ity of tablet 00:00: mouth in [place] 00 the Medical morning Branch and 1 tablet in the evening. Take with meals. glimepiride 2021-08 Yes [id number] 4mg Take 1 Univers 4 mg tablet 0-07 tablet by ity of 00:00: mouth in [place] 00 the Medical morning Branch and 1 tablet in the evening. semaglutide 2021-08- No [id number] .5mg inject 0.5 Univers (OZEMPIC) 0-07 12-15 mg under ity o f 0.25 mg or 00:00: 00:00 the skin [place] 0.5 mg(2 00 :00 weekly. Medical mg/1.5 mL) Branch PnIj semaglutide 2021-08- No [id number] .5mg inject 0.5 Univers (OZEMPIC) 0-07 12-15 mg under ity o f 0.25 mg or 00:00: 00:00 the skin [place] 0.5 mg(2 00 :00 weekly. Medical mg/1.5 mL) Branch PnIj amoxicillin 2021- No [id number] 1{tbl} Take 1 Univers -clavulanat 9-30 10- [id number] tablet by ity of e 00:00: 04:59 mouth in [place] (AUGMENTIN) 00 :00 the Medical 875-125 mg morning Branch per tablet and 1 tablet in the evening. Do all this for 7 days. amoxicillin 2021- No [id number] 1{tbl} Take 1 Univers -clavulanat 9-30 10-08 [id number] tablet by ity of e 00:00: 04:59 mouth in [place] (AUGMENTIN) 00 :00 the Medical 875-125 mg morning Branch per tablet and 1 tablet in the evening. Do all this for 7 days. amoxicillin 2021- No [id number] 1{tbl} Take 1 Univers -clavulanat 9-05-22 [id number] tablet by ity of e 00:00: 04:59 mouth in [place] (AUGMENTIN) 00 :00 the Medical 875-125 mg morning Branch per tablet and 1 tablet in the evening. Do all this for 7 days. amoxicillin 0 2- No [id number] 1{tbl} Take 1 Univers -clavulanat -05-22 [id number] tablet by ity of e 00:00: 04:59 mouth in [place] (AUGMENTIN) 00 :00 the Medical 875-125 mg morning Branch per tablet and 1 tablet in the evening. Do all this for 7 days. naproxen 2021-0 2022- No [id number] 500mg Take 1 Univers 500 mg 05-02 tablet by ity of tablet 00:00: 04:59 mouth in [place] 00 :00 the Medical morning Branch and 1 tablet in the evening. Take with meals. Do all this for 10 days. diclofenac 2021-0 Yes 50mg Take 50 mg U nivers 50 mg 9-15 by mouth ity of tablet 00:00: in the [place] morning Medical and 50 mg Branch at noon and 50 mg in the evening. diclofenac 2022-0 Yes 50mg Take 50 mg U nivers 50 mg 9-15 by mouth ity of tablet 00:00: in the [place] morning Medical and 50 mg Branch at noon and 50 mg in the evening. diclofenac 2022-0 Yes 50mg Take 50 mg U nivers 50 mg 9-15 by mouth ity of tablet 00:00: in the [place] morning Medical and 50 mg Branch at noon and 50 mg in the evening. diclofenac 2022-0 Yes 50mg Take 50 mg U nivers 50 mg 9-15 by mouth ity of tablet 00:00: in the [place] morning Medical and 50 mg Branch at noon and 50 mg in the evening. diclofenac 2022-0 Yes 50mg Take 50 mg U nivers 50 mg 9-15 by mouth ity of tablet 00:00: in the [place] morning Medical and 50 mg Branch at noon and 50 mg in the evening. diclofenac 2022-0 Yes 50mg Take 50 mg U nivers 50 mg 9-15 by mouth ity of tablet 00:00: in the [place] morning Medical and 50 mg Branch at noon and 50 mg in the evening. diclofenac 2022-0 Yes 50mg Take 50 mg U nivers 50 mg 9-15 by mouth ity of tablet 00:00: in the [place] 00 morning Medical and 50 mg Branch at noon and 50 mg in the evening. diclofenac 2022-0 Yes 50mg Take 50 mg U nivers 50 mg 9-15 by mouth ity of tablet 00:00: in the [place] 00 morning Medical and 50 mg Branch at noon and 50 mg in the evening. diclofenac 2022-0 Yes 50mg Take 50 mg U nivers 50 mg 9-15 by mouth ity of tablet 00:00: in the [place] 00 morning Medical and 50 mg Branch at noon and 50 mg in the evening. diclofenac 2022-0 Yes 50mg Take 50 mg U nivers 50 mg 9-15 by mouth ity of tablet 00:00: in the [place] 00 morning Medical and 50 mg Branch at noon and 50 mg in the evening. diclofenac 2022-0 Yes 50mg Take 50 mg U nivers 50 mg 9-15 by mouth ity of tablet 00:00: in the [place] 00 morning Medical and 50 mg Branch at noon and 50 mg in the evening. diclofenac 2022-0 Yes 50mg Take 50 mg U nivers 50 mg 9-15 by mouth ity of tablet 00:00: in the [place] 00 morning Medical and 50 mg Branch at noon and 50 mg in the evening. diclofenac 2022-0 Yes 50mg Take 50 mg U nivers 50 mg 9-15 by mouth ity of tablet 00:00: in the [place] 00 morning Medical and 50 mg Branch at noon and 50 mg in the evening. diclofenac 2022-0 2022- No 50mg Take 50 mg [facility] 50 mg 9-15 11-15 by mouth ity of tablet 00:00: 00:00 in the [place] 00 :00 morning Medical and 50 mg Branch at noon and 50 mg in the evening. diclofenac 2022-0 2022- No 50mg Take 50 mg [facility] 50 mg 9-15 11-15 by mouth ity of tablet 00:00: 00:00 in the [place] 00 :00 morning Medical and 50 mg Branch at noon and 50 mg in the evening. diclofenac 2022-0 2022- No 50mg Take 50 mg [facility] 50 mg 9-15 11-15 by mouth ity of tablet 00:00: 00:00 in the [place] 00 :00 morning Medical and 50 mg Branch at noon and 50 mg in the evening. allopurinoL 2022-0 Yes 300mg Take 300 U nivers 300 mg 9-06 mg by ity of tablet 00:00: mouth [place] 00 every Medical morning. Branch allopurinoL 2022-0 Yes 300mg Take 300 U nivers 300 mg 9-06 mg by ity of tablet 00:00: mouth [place] 00 every Medical morning. Branch allopurinoL 2022-0 Yes 300mg Take 300 U nivers 300 mg 9-06 mg by ity of tablet 00:00: mouth [place] 00 every Medical morning. Branch allopurinoL 2022-0 Yes 300mg Take 300 U nivers 300 mg 9-06 mg by ity of tablet 00:00: mouth [place] 00 every Medical morning. Branch allopurinoL 2022-0 Yes 300mg Take 300 U nivers 300 mg 9-06 mg by ity of tablet 00:00: mouth [place] 00 every Medical morning. Branch allopurinoL 2022-0 Yes 300mg Take 300 U nivers 300 mg 9-06 mg by ity of tablet 00:00: mouth [place] 00 every Medical morning. Branch allopurinoL 2022-0 Yes 300mg Take 300 U nivers 300 mg 9-06 mg by ity of tablet 00:00: mouth [place] 00 every Medical morning. Branch allopurinoL 2022-0 Yes 300mg Take 300 U nivers 300 mg 9-06 mg by ity of tablet 00:00: mouth [place] 00 every Medical morning. Branch allopurinoL 2022-0 Yes 300mg Take 300 U nivers 300 mg 9-06 mg by ity of tablet 00:00: mouth [place] 00 every Medical morning. Branch allopurinoL 2022-0 Yes 300mg Take 300 U nivers 300 mg 9-06 mg by ity of tablet 00:00: mouth [place] 00 every Medical morning. Branch allopurinoL 2022-0 Yes 300mg Take 300 U nivers 300 mg 9-06 mg by ity of tablet 00:00: mouth [place] 00 every Medical morning. Branch allopurinoL 2022-0 Yes 300mg Take 300 U nivers 300 mg 9-06 mg by ity of tablet 00:00: mouth [place] 00 every Medical morning. Branch allopurinoL 2022-0 Yes 300mg Take 300 U nivers 300 mg 9-06 mg by ity of tablet 00:00: mouth [place] 00 every Medical morning. Branch allopurinoL 2022-0 Yes 300mg Take 300 U nivers 300 mg 9-06 mg by ity of tablet 00:00: mouth [place] 00 every Medical morning. Branch allopurinoL 2022-0 Yes 300mg Take 300 U nivers 300 mg 9-06 mg by ity of tablet 00:00: mouth [place] 00 every Medical morning. Branch allopurinoL 2022-0 Yes 300mg Take 300 U nivers 300 mg 9-06 mg by ity of tablet 00:00: mouth [place] 00 every Medical morning. Branch allopurinoL 2022-0 Yes 300mg Take 300 U nivers 300 mg 9-06 mg by ity of tablet 00:00: mouth [place] 00 every Medical morning. Branch allopurinoL 2022-0 Yes 300mg Take 300 U nivers 300 mg 9-06 mg by ity of tablet 00:00: mouth [place] 00 every Medical morning. Branch allopurinoL 2022-0 Yes 300mg Take 300 U nivers 300 mg 9-06 mg by ity of tablet 00:00: mouth [place] 00 every Medical morning. Branch allopurinoL 2022-0 Yes 300mg Take 300 U nivers 300 mg 9-06 mg by ity of tablet 00:00: mouth [place] 00 every Medical morning. Branch allopurinoL 2022-0 Yes 300mg Take 300 U nivers 300 mg 9-06 mg by ity of tablet 00:00: mouth [place] 00 every Medical morning. Branch allopurinoL 2022-0 Yes 300mg Take 300 U nivers 300 mg 9-06 mg by ity of tablet 00:00: mouth [place] 00 every Medical morning. Branch allopurinoL 2022-0 Yes 300mg Take 300 U nivers 300 mg 9-06 mg by ity of tablet 00:00: mouth [place] 00 every Medical morning. Branch allopurinoL 2022-0 Yes 300mg Take 300 U nivers 300 mg 9-06 mg by ity of tablet 00:00: mouth [place] 00 every Medical morning. Branch allopurinoL 2022-0 Yes 300mg Take 300 U nivers 300 mg 9-06 mg by ity of tablet 00:00: mouth [place] 00 every Medical morning. Branch aspirin 81 2022-0 Yes 81mg Take 81 mg U nivers mg chewable 4-15 by mouth ity of tablet 11:54: daily. [place] 05 Medical Branch aspirin 81 2021-0 Yes 81mg Take 81 mg U nivers mg chewable 4-15 by mouth ity of tablet 11:54: daily. [address] Branch aspirin 81 2021-0 Yes 81mg Take 81 mg U nivers mg chewable 4-15 by mouth ity of tablet 11:54: daily. [address] aspirin 81 2021-0 Yes 81mg Take 81 mg U nivers mg chewable 4-15 by mouth ity of tablet 11:54: daily. [address] Branch aspirin 81 2021-0 Yes 81mg Take 81 mg U nivers mg chewable 4-15 by mouth ity of tablet 11:54: daily. [address] aspirin 81 2021-0 Yes 81mg Take 81 mg U nivers mg chewable 4-15 by mouth ity of tablet 11:54: daily. [address] aspirin 81 2021-0 Yes 81mg Take 81 mg U nivers mg chewable 4-15 by mouth ity of tablet 11:54: daily. [address] aspirin 81 2021-0 Yes 81mg Take 81 mg U nivers mg chewable 4-15 by mouth ity of tablet 11:54: daily. [address] aspirin 81 2021-0 Yes 81mg Take 81 mg U nivers mg chewable 4-15 by mouth ity of tablet 11:54: daily. [address] aspirin 81 2021-0 Yes 81mg Take 81 mg U nivers mg chewable 4-15 by mouth ity of tablet 11:54: daily. [address] aspirin 81 2021-0 Yes 81mg Take 81 mg U nivers mg chewable 4-15 by mouth ity of tablet 11:54: daily. [address] aspirin 81 2021-0 Yes 81mg Take 81 mg U nivers mg chewable 4-15 by mouth ity of tablet 11:54: daily. [address] aspirin 81 2021-0 Yes 81mg Take 81 mg U nivers mg chewable 4-15 by mouth ity of tablet 11:54: daily. [address] aspirin 81 2021-0 Yes 81mg Take 81 mg U nivers mg chewable 4-15 by mouth ity of tablet 11:54: daily. [address] aspirin 81 2021-0 Yes 81mg Take 81 mg U nivers mg chewable 4-15 by mouth ity of tablet 11:54: daily. [address] aspirin 81 2021-0 Yes 81mg Take 81 mg U nivers mg chewable 4-15 by mouth ity of tablet 11:54: daily. [address] aspirin 81 2021-0 Yes 81mg Take 81 mg U nivers mg chewable 4-15 by mouth ity of tablet 11:54: daily. [address] aspirin 81 2021-0 Yes 81mg Take 81 mg U nivers mg chewable 4-15 by mouth ity of tablet 11:54: daily. [address] aspirin 81 2021-0 Yes 81mg Take 81 mg U nivers mg chewable 4-15 by mouth ity of tablet 11:54: daily. [address] aspirin 81 2021-0 Yes 81mg Take 81 mg U nivers mg chewable 4-15 by mouth ity of tablet 11:54: daily. [address] aspirin 81 2021-0 Yes 81mg Take 81 mg U nivers mg chewable 4-15 by mouth ity of tablet 11:54: daily. [address] aspirin 81 2021-0 Yes 81mg Take 81 mg U nivers mg chewable 4-15 by mouth ity of tablet 11:54: daily. [address] aspirin 81 2021-0 Yes 81mg Take 81 mg U nivers mg chewable 4-15 by mouth ity of tablet 11:54: daily. [address] spironolact 2021-0 Yes 25mg Take 25 mg [facility] one 25 mg 3-29 by mouth ity of tablet 00:00: daily. [address] spironolact 2021-0 Yes 25mg Take 25 mg [facility] one 25 mg 3-29 by mouth ity of tablet 00:00: daily. [address] spironolact 2021-0 Yes 25mg Take 25 mg [facility] one 25 mg 3-29 by mouth ity of tablet 00:00: daily. [address] spironolact 2021-0 Yes 25mg Take 25 mg [facility] one 25 mg 3-29 by mouth ity of tablet 00:00: daily. [address] spironolact 2021-0 Yes 25mg Take 25 mg [facility] one 25 mg 3-29 by mouth ity of tablet 00:00: daily. [address] Branch spironolact 2-0 Yes 25mg Take 25 mg [facility] one 25 mg 3-29 by mouth ity of tablet 00:00: daily. [place] [facility] Branch spironolact 2021-0 Yes 25mg Take 25 mg [facility] one 25 mg 3-29 by mouth ity of tablet 00:00: daily. [place] [facility] spironolact 2-0 Yes 25mg Take 25 mg [facility] one 25 mg 3-29 by mouth ity of tablet 00:00: daily. [place] [facility] spironolact 2-0 Yes 25mg Take 25 mg [facility] one 25 mg 3-29 by mouth ity of tablet 00:00: daily. [place] [facility] spironolact 2021-0 Yes 25mg Take 25 mg [facility] one 25 mg 3-29 by mouth ity of tablet 00:00: daily. [place] [facility] spironolact 2-0 Yes 25mg Take 25 mg [facility] one 25 mg 3-29 by mouth ity of tablet 00:00: daily. [place] [facility] spironolact 2021-0 Yes 25mg Take 25 mg [facility] one 25 mg 3-29 by mouth ity of tablet 00:00: daily. [place] [facility] spironolact 2021-0 Yes 25mg Take 25 mg [facility] one 25 mg 3-29 by mouth ity of tablet 00:00: daily. [place] [facility] spironolact 2-0 Yes 25mg Take 25 mg [facility] one 25 mg 3-29 by mouth ity of tablet 00:00: daily. [place] [facility] spironolact 2-0 Yes 25mg Take 25 mg [facility] one 25 mg 3-29 by mouth ity of tablet 00:00: daily. [place] [facility] spironolact 2-0 Yes 25mg Take 25 mg [facility] one 25 mg 3-29 by mouth ity of tablet 00:00: daily. [place] [facility] spironolact 2-0 Yes 25mg Take 25 mg [facility] one 25 mg 3-29 by mouth ity of tablet 00:00: daily. [address] spironolact 2-0 Yes 25mg Take 25 mg [facility] one 25 mg 3-29 by mouth ity of tablet 00:00: daily. [place] [facility] spironolact 2-0 Yes 25mg Take 25 mg [facility] one 25 mg 3-29 by mouth ity of tablet 00:00: daily. [place] [facility] spironolact 2021-0 Yes 25mg Take 25 mg [facility] one 25 mg 3-29 by mouth ity of tablet 00:00: daily. [place] [facility] spironolact 2021-0 Yes 25mg Take 25 mg [facility] one 25 mg 3-29 by mouth ity of tablet 00:00: daily. [place] [facility] spironolact 2021-0 Yes 25mg Take 25 mg [facility] one 25 mg 3-29 by mouth ity of tablet 00:00: daily. [place] [facility] spironolact 2021-0 Yes 25mg Take 25 mg [facility] one 25 mg 3-29 by mouth ity of tablet 00:00: daily. [place] [facility] spironolact 2021-0 Yes 25mg Take 25 mg [facility] one 25 mg 3-29 by mouth ity of tablet 00:00: daily. [place] [facility] spironolact 2021-0 Yes 25mg Take 25 mg [facility] one 25 mg 3-29 by mouth ity of tablet 00:00: daily. [place] [facility] spironolact 2021-0 Yes 25mg Take 25 mg [facility] one 25 mg 3-29 by mouth ity of tablet 00:00: daily. [place] [facility] spironolact 2021-0 Yes 25mg Take 25 mg [facility] one 25 mg 3-29 by mouth ity of tablet 00:00: daily. [place] [facility] spironolact 2021-0 Yes 25mg Take 25 mg [facility] one 25 mg 3-29 by mouth ity of tablet 00:00: daily. [place] [facility] furosemide 2021-0 Yes 40mg Take 40 mg U nivers 40 mg 2-18 by mouth ity of tablet 00:00: daily. [place] [facility] furosemide 2021-0 Yes 40mg Take 40 mg U nivers 40 mg 2-18 by mouth ity of tablet 00:00: daily. [place] [facility] furosemide 2021-0 Yes 40mg Take 40 mg U nivers 40 mg 2-18 by mouth ity of tablet 00:00: daily. [place] [facility] furosemide 2021-0 Yes 40mg Take 40 mg U nivers 40 mg 2-18 by mouth ity of tablet 00:00: daily. [place] [facility] furosemide 2022-0 Yes 40mg Take 40 mg U nivers 40 mg 2-18 by mouth ity of tablet 00:00: daily. [place] [facility] furosemide 2022-0 Yes 40mg Take 40 mg U nivers 40 mg 2-18 by mouth ity of tablet 00:00: daily. [place] [facility] furosemide 2022-0 Yes 40mg Take 40 mg U nivers 40 mg 2-18 by mouth ity of tablet 00:00: daily. [place] [facility] furosemide 2022-0 Yes 40mg Take 40 mg U nivers 40 mg 2-18 by mouth ity of tablet 00:00: daily. [place] [facility] Branch furosemide 2022-0 Yes 40mg Take 40 mg U nivers 40 mg 2-18 by mouth ity of tablet 00:00: daily. [place] [facility] furosemide 2022-0 Yes 40mg Take 40 mg U nivers 40 mg 2-18 by mouth ity of tablet 00:00: daily. [place] [facility] Branch furosemide 2022-0 Yes 40mg Take 40 mg U nivers 40 mg 2-18 by mouth ity of tablet 00:00: daily. [place] [facility] furosemide 2022-0 Yes 40mg Take 40 mg U nivers 40 mg 2-18 by mouth ity of tablet 00:00: daily. [place] [facility] Branch furosemide 2022-0 Yes 40mg Take 40 mg U nivers 40 mg 2-18 by mouth ity of tablet 00:00: daily. [place] [facility] Branch furosemide 2022-0 Yes 40mg Take 40 mg U nivers 40 mg 2-18 by mouth ity of tablet 00:00: daily. [place] [facility] Branch furosemide 2022-0 Yes 40mg Take 40 mg U nivers 40 mg 2-18 by mouth ity of tablet 00:00: daily. [place] [facility] Branch furosemide 2022-0 Yes 40mg Take 40 mg U nivers 40 mg 2-18 by mouth ity of tablet 00:00: daily. [place] [facility] Branch furosemide 2022-0 Yes 40mg Take 40 mg U nivers 40 mg 2-18 by mouth ity of tablet 00:00: daily. [place] [facility] Branch furosemide 2022-0 Yes 40mg Take 40 mg U nivers 40 mg 2-18 by mouth ity of tablet 00:00: daily. [place] [facility] Branch furosemide 2022-0 Yes 40mg Take 40 mg U nivers 40 mg 2-18 by mouth ity of tablet 00:00: daily. Medical Branch furosemide 2021-0 Yes 40mg Take 40 mg U nivers 40 mg 2-18 by mouth ity of tablet 00:00: daily. Medical Branch furosemide 2-0 Yes 40mg Take 40 mg U nivers 40 mg 2-18 by mouth ity of tablet 00:00: daily. Medical Branch furosemide 2021-0 Yes 40mg Take 40 mg U nivers 40 mg 2-18 by mouth ity of tablet 00:00: daily. Medical Branch furosemide 2021-0 Yes 40mg Take 40 mg U nivers 40 mg 2-18 by mouth ity of tablet 00:00: daily. Medical Branch furosemide 2021-0 Yes 40mg Take 40 mg U nivers 40 mg 2-18 by mouth ity of tablet 00:00: daily. Medical Branch furosemide 2021-0 Yes 40mg Take 40 mg U nivers 40 mg 2-18 by mouth ity of tablet 00:00: daily. Medical Branch furosemide 2021-0 Yes 40mg Take 40 mg U nivers 40 mg 2-18 by mouth ity of tablet 00:00: daily. Medical Branch furosemide 2021-0 Yes 40mg Take 40 mg U nivers 40 mg 2-18 by mouth ity of tablet 00:00: daily. Medical Branch furosemide 2-0 Yes 40mg Take 40 mg U nivers 40 mg 2-18 by mouth ity of tablet 00:00: daily. [place] [facility] montelukast 2021-0 Yes 10mg Take 10 mg [facility] 10 mg 2-10 by mouth ity of tablet 00:00: every [place] morning. Medical Branch montelukast 2021-0 Yes 10mg Take 10 mg [facility] 10 mg 2-10 by mouth ity of tablet 00:00: every [place] morning. Medical Branch montelukast 2021-0 Yes 10mg Take 10 mg [facility] 10 mg 2-10 by mouth ity of tablet 00:00: every [place] morning. Medical Branch montelukast 2021-0 Yes 10mg Take 10 mg [facility] 10 mg 2-10 by mouth ity of tablet 00:00: every [place] morning. Medical Branch montelukast 2021-0 Yes 10mg Take 10 mg [facility] 10 mg 2-10 by mouth ity of tablet 00:00: every [place] 00 morning. Medical Branch montelukast 2021-0 Yes 10mg Take 10 mg [facility] 10 mg 2-10 by mouth ity of tablet 00:00: every [place] 00 morning. Medical Branch montelukast 2021-0 Yes 10mg Take 10 mg [facility] 10 mg 2-10 by mouth ity of tablet 00:00: every [place] 00 morning. [facility] Branch montelukast 2021-0 Yes 10mg Take 10 mg [facility] 10 mg 2-10 by mouth ity of tablet 00:00: every [place] 00 morning. [facility] Branch montelukast 2021-0 Yes 10mg Take 10 mg [facility] 10 mg 2-10 by mouth ity of tablet 00:00: every [place] 00 morning. [facility] Branch montelukast 2021-0 Yes 10mg Take 10 mg [facility] 10 mg 2-10 by mouth ity of tablet 00:00: every [place] 00 morning. [facility] Branch montelukast 2021-0 Yes 10mg Take 10 mg [facility] 10 mg 2-10 by mouth ity of tablet 00:00: every [place] 00 morning. [facility] Branch montelukast 2021-0 Yes 10mg Take 10 mg [facility] 10 mg 2-10 by mouth ity of tablet 00:00: every [place] 00 morning. [facility] Branch montelukast 2021-0 Yes 10mg Take 10 mg [facility] 10 mg 2-10 by mouth ity of tablet 00:00: every [place] 00 morning. Medical Branch montelukast 2021-0 Yes 10mg Take 10 mg [facility] 10 mg 2-10 by mouth ity of tablet 00:00: every [place] 00 morning. Medical Branch montelukast 2021-0 Yes 10mg Take 10 mg [facility] 10 mg 2-10 by mouth ity of tablet 00:00: every [place] 00 morning. [facility] Branch montelukast 2021-0 Yes 10mg Take 10 mg [facility] 10 mg 2-10 by mouth ity of tablet 00:00: every [place] 00 morning. [facility] Branch montelukast 2021-0 Yes 10mg Take 10 mg [facility] 10 mg 2-10 by mouth ity of tablet 00:00: every [place] 00 morning. [facility] Branch montelukast 2021-0 Yes 10mg Take 10 mg [facility] 10 mg 2-10 by mouth ity of tablet 00:00: every [place] 00 morning. [facility] Branch montelukast Yes 10mg Take 10 mg [facility] 10 mg 2-10 by mouth ity of tablet 00:00: every [place] 00 morning. [facility] Branch montelukast 0 Yes 10mg Take 10 mg [facility] 10 mg 2-10 by mouth ity of tablet 00:00: every [place] 00 morning. [facility] Branch montelukast 0 Yes 10mg Take 10 mg [facility] 10 mg 2-10 by mouth ity of tablet 00:00: every [place] 00 morning. [facility] Branch montelukast 0 Yes 10mg Take 10 mg [facility] 10 mg 2-10 by mouth ity of tablet 00:00: every [place] 00 morning. [facility] Branch montelukast Yes 10mg Take 10 mg [facility] 10 mg 2-10 by mouth ity of tablet 00:00: every [place] morning. [facility] montelukast Yes 10mg Take 10 mg Univers 10 mg 2-10 by mouth ity of tablet 00:00: every [place] morning. [facility] montelukast Yes 10mg Take 10 mg [facility] 10 mg 2-10 by mouth ity of tablet 00:00: every [place] morning. [facility] Branch montelukast Yes 10mg Take 10 mg [facility] 10 mg 2-10 by mouth ity of tablet 00:00: every [place] morning. [facility] Branch montelukast Yes 10mg Take 10 mg [facility] 10 mg 2-10 by mouth ity of tablet 00:00: every [place] morning. [facility] montelukast Yes 10mg Take 10 mg [facility] 10 mg 2-10 by mouth ity of tablet 00:00: every [place] morning. Medical Branch metFORMIN 2020-08 Yes 1000mg Q.5D Take 1,000 [facility] (GLUCOPHAGE 2-[address] ) 1,000 mg 19:25: mouth 2 [facility]osp y[facility] tablet 03 (two) l times a day with meals. atorvastati 2020-08 Yes 40mg QD Take 40 mg [facility] n (LIPITOR) 2-[address] 40 mg 19:25: daily. [facility]ospita tablet 03 l sacubitriL- 2020-08 Yes 1{tbl} Q.5D Take 1 Me thodi valsartan 2-[address] (ENTRESTO) 19:25: mouth 2 Hosp yfn 97-103 mg 03 (two) l tablet per times a tablet day. montelukast 2020-08 Yes 10mg QD Take 10 mg [facility] (SINGULAIR) 2-[address] 10 mg 19:25: nightly. Hospita tablet 03 l glimepiride 2020-08 Yes 4mg Q.5D Take 4 mg M [facility] (AMARYL) 4 2-[address] MG tablet 19:25: (two) Hospita 03 times a l day. semaglutide 2020-08 Yes .25mg Q1W Inject [facility] (Ozempic) 2-[address] 0[address]25 mg or 19:25: under the [facility] 0.5 mg(2 03 skin every l mg/1.5 mL) 7 days. subcutaneou Wednesdays s pen aspirin 2020-08 Yes 81mg QD Take 81 mg Meth ev (ECOTRIN) 2-[address] 81 MG 19:25: daily. Hospita enteric 03 l coated tablet furosemide 2020-08 Yes 40mg QD Take 40 mg M [facility]i (LASIX) 40 2-[address] mg tablet 19:25: daily. Hospit a 03 l spironolact 2020-08 Yes 25mg QD Take 25 mg [facility] one 2-[address] (ALDACTONE) 19:25: daily. Hosp yfn 25 MG 03 l tablet metoprolol 2020-08 Yes 12.5mg Q.5D Take 12.5 [facility] tartrate 2-[address] (LOPRESSOR) 19:25: mouth 2 Hos raffi 25 mg 03 (two) l tablet times a day. semaglutide 2020-08 Yes [id number] .5mg inject 0.5 [facility] (OZEMPIC) 0-15 mg under ity of 0.25 mg or 00:00: the skin Dat as 0.5 mg(2 00 weekly. Medical mg/1.5 mL) Branch PnIj metFORMIN 2020-08 Yes [id number] 1000mg Take 1 [facility] 1,000 mg 0-15 tablet by ity of tablet 00:00: mouth 2 [place] 00 (two) Medical times Branch daily with meals. glimepiride 2020-08 Yes [id number] 4mg Take 1 [facility] 4 mg tablet 0-15 tablet by ity of 00:00: mouth (two) Medical times Branch daily. semaglutide 2020-08 Yes [id number] .5mg inject 0.5 [facility] (OZEMPIC) 0-15 mg under ity of 0.25 mg or 00:00: the skin [place] 0.5 mg(2 00 weekly. Medical mg/1.5 mL) Branch PnIj metFORMIN 2020-08 Yes [id number] 1000mg Take 1 [facility] 1,000 mg 0-15 tablet by ity of tablet 00:00: mouth (two) Medical times Branch daily with meals. glimepiride 2020-08 Yes [id number] 4mg Take 1 [facility] 4 mg tablet 0-15 tablet by ity of 00:00: mouth (two) Medical times Branch daily. semaglutide 2020-08 Yes [id number] .5mg inject 0.5 [facility] (OZEMPIC) 0-15 mg under ity of 0.25 mg or 00:00: the skin [place] 0.5 mg(2 00 weekly. Medical mg/1.5 mL) Branch PnIj metFORMIN 2020-08 Yes [id number] 1000mg Take 1 [facility] 1,000 mg 0-15 tablet by ity of tablet 00:00: mouth (two) Medical times Branch daily with meals. glimepiride 2020-08 Yes [id number] 4mg Take 1 [facility] 4 mg tablet 0-15 tablet by ity of 00:00: mouth (two) Medical times Branch daily. semaglutide 2020-08 Yes [id number] .5mg inject 0.5 [facility] (OZEMPIC) 0-15 mg under ity of 0.25 mg or 00:00: the skin [place] 0.5 mg(2 00 weekly. Medical mg/1.5 mL) Branch PnIj metFORMIN 2020-08 Yes [id number] 1000mg Take 1 [facility] 1,000 mg 0-15 tablet by ity of tablet 00:00: mouth (two) Medical times Branch daily with meals. glimepiride 2020-08 Yes [id number] 4mg Take 1 [facility] 4 mg tablet 0-15 tablet by ity of 00:00: mouth (two) Medical times Branch daily. semaglutide 2020-08 Yes [id number] .5mg inject 0.5 [facility] (OZEMPIC) 0-15 mg under ity of 0.25 mg or 00:00: the skin [place] 0.5 mg(2 00 weekly. Medical mg/1.5 mL) Branch PnIj metFORMIN 2020-08 Yes [id number] 1000mg Take 1 [facility] 1,000 mg 0-15 tablet by ity of tablet 00:00: mouth 2 [place] 00 (two) Medical times Branch daily with meals. glimepiride 2020-08 Yes [id number] 4mg Take 1 [facility] 4 mg tablet 0-15 tablet by ity of 00:00: mouth 2 [place] 00 (two) Medical times Branch daily. semaglutide 2020-08- No [id number] .5mg inject 0.5 [facility] (OZEMPIC) 0-15 10-07 mg under ity o f 0.25 mg or 00:00: 00:00 the skin [place] 0.5 mg(2 00 :00 weekly. Medical mg/1.5 mL) Branch PnIj metFORMIN 2020-08- No [id number] 1000mg Take 1 [facility] 1,000 mg 0-15 10-07 tablet by ity o f tablet 00:00: 00:00 mouth 2 [place] 00 :00 (two) Medical times Branch daily with meals. glimepiride 2020-08- No [id number] 4mg Take 1 [facility] 4 mg tablet 0-15 10-07 tablet by it y of 00:00: 00:00 mouth 2 [place] 00 :00 (two) Medical times Branch daily. semaglutide 2020-08- No [id number] .5mg inject 0.5 [facility] (OZEMPIC) 0-15 10-07 mg under ity o f 0.25 mg or 00:00: 00:00 the skin [place] 0.5 mg(2 00 :00 weekly. Medical mg/1.5 mL) Branch PnIj metFORMIN 2020-08- No [id number] 1000mg Take 1 [facility] 1,000 mg 0-15 10-07 tablet by ity o f tablet 00:00: 00:00 mouth 2 [place] 00 :00 (two) Medical times Branch daily with meals. glimepiride 2020-08- No [id number] 4mg Take 1 [facility] 4 mg tablet 005-21 tablet by it y of 00:00: 00:00 mouth 2 [place] 00 :00 (two) Medical times Branch daily. anastrozole 2021-0 Yes Univer s 1 mg tablet 3-26 ity of 00:00: [place] 00 Medical Branch anastrozole 2021-0 Yes Univer s 1 mg tablet 3-26 ity of 00:00: [place] 00 Medical Branch anastrozole 2021-0 Yes Univer s 1 mg tablet 3-26 ity of 00:00: [place] 00 Medical Branch anastrozole 2021-0 Yes Univer s 1 mg tablet 3-26 ity of 00:00: [place] [id number] Medical Branch anastrozole 2021-0 Yes Univer s 1 mg tablet 3-26 ity of 00:00: [place] 00 Medical Branch anastrozole 2021-0 Yes Univer s 1 mg tablet 3-26 ity of 00:00: [place] [id number] Medical Branch anastrozole 2021-0 Yes Univer s 1 mg tablet 3-26 ity of 00:00: [place] [id number] Medical Branch anastrozole 2021-0 Yes Univer s 1 mg tablet 3-26 ity of 00:00: [place] [id number] [facility] Branch anastrozole 2021-0 Yes Univer s 1 mg tablet 3-26 ity of 00:00: [place] [facility] anastrozole 2021-0 Yes Univer s 1 mg tablet 3-26 ity of 00:00: [place] 00 [facility] anastrozole 2021-0 Yes Univer s 1 mg tablet 3-26 ity of 00:00: [place] 00 [facility] anastrozole 2021-0 Yes Univer s 1 mg tablet 3-26 ity of 00:00: [place] 00 [facility] anastrozole 2021-0 Yes Univer s 1 mg tablet 3-26 ity of 00:00: [place] [id number] [facility] anastrozole 2021-0 Yes Univer s 1 mg tablet 3-26 ity of 00:00: [place] 00 [facility] anastrozole 2021-0 Yes Univer s 1 mg tablet 3-26 ity of 00:00: [place] [id number] [facility] anastrozole 2021-0 Yes Univer s 1 mg tablet 3-26 ity of 00:00: [place] [id number] [facility] anastrozole 2021-0 Yes Univer s 1 mg tablet 3-26 ity of 00:00: [place] 00 [facility] anastrozole 2021-0 Yes Univer s 1 mg tablet 3-26 ity of 00:00: [place] 00 [facility] anastrozole 2021-0 Yes Univer s 1 mg tablet 3-26 ity of 00:00: [place] 00 [facility] anastrozole 2021-0 Yes Univer s 1 mg tablet 3-26 ity of 00:00: [place] 00 [facility] anastrozole 2021-0 Yes Univer s 1 mg tablet 3-26 ity of 00:00: [place] 00 [facility] anastrozole 2021-0 Yes Univer s 1 mg tablet 3-26 ity of 00:00: [place] 00 [facility] anastrozole 2021-0 Yes Univer s 1 mg tablet 3-26 ity of 00:00: [place] 00 [facility] anastrozole 2021-0 Yes Univer s 1 mg tablet 3-26 ity of 00:00: [place] 00 [facility] anastrozole 2021-0 Yes Univer s 1 mg tablet 3-26 ity of 00:00: [place] 00 [facility] anastrozole 2021-0 Yes Univer s 1 mg tablet 3-26 ity of 00:00: [place] 00 [facility] anastrozole 2021-0 Yes Univer s 1 mg tablet 3-26 ity of 00:00: [place] 00 [facility] anastrozole 2021-0 Yes Univer s 1 mg tablet 3-26 ity of 00:00: [place] 00 [facility] anastrozole 2021-0 Yes Univer s 1 mg tablet 3-26 ity of 00:00: [place] 00 [facility] atorvastati 2020-1 Yes 40mg Take 1 Univ ers n 40 mg 2-04 tablet by ity of tablet 00:00: mouth at [place] 00 bedtime. [facility] Branch atorvastati 2020-1 Yes 40mg Take 1 Univ ers n 40 mg 2-04 tablet by ity of tablet 00:00: mouth at [place] 00 bedtime. [facility] Branch atorvastati 2020-1 Yes 40mg Take 1 Univ ers n 40 mg 2-04 tablet by ity of tablet 00:00: mouth at [place] 00 bedtime. [facility] atorvastati 2020-1 Yes 40mg Take 1 Univ ers n 40 mg 2-04 tablet by ity of tablet 00:00: mouth at [place] 00 bedtime. Medical Branch atorvastati 2020-1 Yes 40mg Take 1 Univ ers n 40 mg 2-04 tablet by ity of tablet 00:00: mouth at [place] [id number] bedtime. Medical Branch atorvastati 2019- Yes 40mg Take 1 Univ ers n 40 mg 2-04 tablet by ity of tablet 00:00: mouth at [place] bedtime. [facility] atorvastati 2019- Yes 40mg Take 1 Univ ers n 40 mg 2-04 tablet by ity of tablet 00:00: mouth at [place] bedtime. Medical Branch atorvastati 2019- Yes 40mg Take 1 Univ ers n 40 mg 2-04 tablet by ity of tablet 00:00: mouth at [place] bedtime. [facility] Branch atorvastati 2019- Yes 40mg Take 1 Univ ers n 40 mg 2-04 tablet by ity of tablet 00:00: mouth at [place] bedtime. [facility] Branch atorvastati 2019-08 Yes 40mg Take 1 Univ ers n 40 mg 2-04 tablet by ity of tablet 00:00: mouth at [place] bedtime. [facility] atorvastati 2019- Yes 40mg Take 1 Univ ers n 40 mg 2-04 tablet by ity of tablet 00:00: mouth at [place] bedtime. [facility] atorvastati 2019- Yes 40mg Take 1 Univ ers n 40 mg 2-04 tablet by ity of tablet 00:00: mouth at [place] bedtime. [facility] atorvastati 2019- Yes 40mg Take 1 Univ ers n 40 mg 2-04 tablet by ity of tablet 00:00: mouth at [place] bedtime. [facility] atorvastati 2019- Yes 40mg Take 1 Univ ers n 40 mg 2-04 tablet by ity of tablet 00:00: mouth at [place] bedtime. [facility] atorvastati 2019- Yes 40mg Take 1 Univ ers n 40 mg 2-04 tablet by ity of tablet 00:00: mouth at [place] bedtime. [facility] atorvastati 2019- Yes 40mg Take 1 Univ ers n 40 mg 2-04 tablet by ity of tablet 00:00: mouth at [place] bedtime. [facility] atorvastati 2019- Yes 40mg Take 1 Univ ers n 40 mg 2-04 tablet by ity of tablet 00:00: mouth at [place] [address] bedtime. Medical Branch atorvastati 2019- Yes 40mg Take 1 Univ ers n 40 mg 2-04 tablet by ity of tablet 00:00: mouth at [place] [address] bedtime. Medical Branch atorvastati 2019- Yes 40mg Take 1 Univ ers n 40 mg 2-04 tablet by ity of tablet 00:00: mouth at [place] bedtime. [facility] atorvastati 2019- Yes 40mg Take 1 Univ ers n 40 mg 2-04 tablet by ity of tablet 00:00: mouth at [place] bedtime. [facility] atorvastati 2019-08 Yes 40mg Take 1 Univ ers n 40 mg 2-04 tablet by ity of tablet 00:00: mouth at [place] bedtime. [facility] atorvastati 2019-08 Yes 40mg Take 1 Univ ers n 40 mg 2-04 tablet by ity of tablet 00:00: mouth at [place] bedtime. [facility] atorvastati 2019-08 Yes 40mg Take 1 Univ ers n 40 mg 2-04 tablet by ity of tablet 00:00: mouth at [place] bedtime. [facility] atorvastati 2019-08 Yes 40mg Take 1 Univ ers n 40 mg 2-04 tablet by ity of tablet 00:00: mouth at [place] bedtime. [facility] atorvastati 2019-08 Yes 40mg Take 1 Univ ers n 40 mg 2-04 tablet by ity of tablet 00:00: mouth at [place] bedtime. [facility] atorvastati 2019-08 Yes 40mg Take 1 Univ ers n 40 mg 2-04 tablet by ity of tablet 00:00: mouth at [place] bedtime. [facility] atorvastati 2019- Yes 40mg Take 1 Univ ers n 40 mg 2-04 tablet by ity of tablet 00:00: mouth at [place] bedtime. [facility] atorvastati 2019- Yes 40mg Take 1 Univ ers n 40 mg 2-04 tablet by ity of tablet 00:00: mouth at [place] bedtime. [facility] atorvastati 2019- Yes 40mg Take 1 Univ ers n 40 mg 2-04 tablet by ity of tablet 00:00: mouth at [place] bedtime. Medical Branch ENTRESTO 2019- Yes 1{tbl} Take 1 Unive rs 49-51 mg 1-11 tablet by ity of tablet 00:00: mouth 2 (two) Medical times Branch daily. metoprolol 2019- Yes TAKE 1/2 Uni vers tartrate 25 1-11 TABLET BY ity of mg tablet 00:00: MOUTH [place] 00 TWICE Medical DAILY Branch ENTRESTO 2020- Yes 1{tbl} Take 1 Unive rs 49-51 mg 1-11 tablet by ity of tablet 00:00: mouth 2 (two) Medical times Branch daily. metoprolol 2019-08 Yes TAKE 1/2 Uni vers tartrate 25 1-11 TABLET BY ity of mg tablet 00:00: MOUTH [place] 00 TWICE Medical DAILY Branch ENTRESTO 2020- Yes 1{tbl} Take 1 Unive rs 49-51 mg 1-11 tablet by ity of tablet 00:00: mouth 2 (two) Medical times Branch daily. metoprolol 2019-08 Yes TAKE 1/2 Uni vers tartrate 25 1-11 TABLET BY ity of mg tablet 00:00: MOUTH 00 TWICE Medical DAILY Branch ENTRESTO 2020- Yes 1{tbl} Take 1 Unive rs 49-51 mg 1-11 tablet by ity of tablet 00:00: mouth 2 (two) Medical times Branch daily. metoprolol 2019-08 Yes TAKE 1/2 Uni vers tartrate 25 1-11 TABLET BY ity of mg tablet 00:00: MOUTH 00 TWICE Medical DAILY Branch ENTRESTO 2020-1 Yes 1{tbl} Take 1 Unive rs 49-51 mg 1-11 tablet by ity of tablet 00:00: mouth 2 (two) Medical times Branch daily. metoprolol 2019- Yes TAKE 1/2 Uni vers tartrate 25 1-11 TABLET BY ity of mg tablet 00:00: MOUTH [place] 00 TWICE Medical DAILY Branch ENTRESTO 2020- Yes 1{tbl} Take 1 Unive rs 49-51 mg 1-11 tablet by ity of tablet 00:00: mouth 2 (two) Medical times Branch daily. metoprolol 2019- Yes TAKE 1/2 Uni vers tartrate 25 1-11 TABLET BY ity of mg tablet 00:00: MOUTH [place] 00 TWICE Medical DAILY Branch ENTRESTO 2020-1 Yes 1{tbl} Take 1 Unive rs 49-51 mg 1-11 tablet by ity of tablet 00:00: mouth 2 (two) Medical times Branch daily. metoprolol 2019- Yes TAKE 1/2 Uni vers tartrate 25 1-11 TABLET BY ity of mg tablet 00:00: MOUTH 00 TWICE Medical DAILY Branch ENTRESTO 2020- Yes 1{tbl} Take 1 Unive rs 49-51 mg 1-11 tablet by ity of tablet 00:00: mouth 2 (two) Medical times Branch daily. metoprolol 2019-08 Yes TAKE 1/2 Uni vers tartrate 25 1-11 TABLET BY ity of mg tablet 00:00: MOUTH 00 TWICE Medical DAILY Branch ENTRESTO 2020- Yes 1{tbl} Take 1 Unive rs 49-51 mg 1-11 tablet by ity of tablet 00:00: mouth 2 (two) Medical times Branch daily. metoprolol 2019-08 Yes TAKE 1/2 Uni vers tartrate 25 1-11 TABLET BY ity of mg tablet 00:00: MOUTH TWICE Medical DAILY Branch ENTRESTO 2020- Yes 1{tbl} Take 1 Unive rs 49-51 mg 1-11 tablet by ity of tablet 00:00: mouth 2 (two) Medical times Branch daily. metoprolol 2019-08 Yes TAKE 1/2 Uni vers tartrate 25 1-11 TABLET BY ity of mg tablet 00:00: MOUTH 00 TWICE Medical DAILY Branch ENTRESTO 2020- Yes 1{tbl} Take 1 Unive rs 49-51 mg 1-11 tablet by ity of tablet 00:00: mouth 2 (two) Medical times Branch daily. metoprolol 2019- Yes TAKE 1/2 Uni vers tartrate 25 1-11 TABLET BY ity of mg tablet 00:00: MOUTH [place] 00 TWICE Medical DAILY Branch ENTRESTO 2020- Yes 1{tbl} Take 1 Unive rs 49-51 mg 1-11 tablet by ity of tablet 00:00: mouth 2 (two) Medical times Branch daily. metoprolol 2019- Yes TAKE 1/2 Uni vers tartrate 25 1-11 TABLET BY ity of mg tablet 00:00: MOUTH 00 TWICE Medical DAILY Branch ENTRESTO 2020- Yes 1{tbl} Take 1 Unive rs 49-51 mg 1-11 tablet by ity of tablet 00:00: mouth 2 (two) Medical times Branch daily. metoprolol 2019-08 Yes TAKE 1/2 Uni vers tartrate 25 1-11 TABLET BY ity of mg tablet 00:00: MOUTH [place] 00 TWICE Medical DAILY Branch ENTRESTO 2020- Yes 1{tbl} Take 1 Unive rs 49-51 mg 1-11 tablet by ity of tablet 00:00: mouth 2 (two) Medical times Branch daily. metoprolol 2019-08 Yes TAKE 1/2 Uni vers tartrate 25 1-11 TABLET BY ity of mg tablet 00:00: MOUTH [place] 00 TWICE Medical DAILY Branch ENTRESTO 2020- Yes 1{tbl} Take 1 Unive rs 49-51 mg 1-11 tablet by ity of tablet 00:00: mouth 2 (two) Medical times Branch daily. metoprolol 2019-08 Yes TAKE 1/2 Uni vers tartrate 25 1-11 TABLET BY ity of mg tablet 00:00: MOUTH [place] 00 TWICE Medical DAILY Branch ENTRESTO 2019- Yes 1{tbl} Take 1 Unive rs 49-51 mg 1-11 tablet by ity of tablet 00:00: mouth 2 (two) Medical times Branch daily. metoprolol 2019-08 Yes TAKE 1/2 Uni vers tartrate 25 1-11 TABLET BY ity of mg tablet 00:00: MOUTH [place] 00 TWICE Medical DAILY Branch ENTRESTO 2019- Yes 1{tbl} Take 1 Unive rs 49-51 mg 1-11 tablet by ity of tablet 00:00: mouth 2 (two) Medical times Branch daily. metoprolol 2019-08 Yes TAKE 1/2 Uni vers tartrate 25 1-11 TABLET BY ity of mg tablet 00:00: MOUTH [place] 00 TWICE Medical DAILY Branch ENTRESTO 2020- Yes 1{tbl} Take 1 Unive rs 49-51 mg 1-11 tablet by ity of tablet 00:00: mouth 2 00 (two) Medical times Branch daily. metoprolol 2019-08 Yes TAKE 1/2 Uni vers tartrate 25 1-11 TABLET BY ity of mg tablet 00:00: MOUTH [place] 00 TWICE Medical DAILY Branch ENTRESTO 2020- Yes 1{tbl} Take 1 Unive rs 49-51 mg 1-11 tablet by ity of tablet 00:00: mouth 2 (two) Medical times Branch daily. metoprolol 2019-08 Yes TAKE 1/2 Uni vers tartrate 25 1-11 TABLET BY ity of mg tablet 00:00: MOUTH [place] 00 TWICE Medical DAILY Branch ENTRESTO 2020- Yes 1{tbl} Take 1 Unive rs 49-51 mg 1-11 tablet by ity of tablet 00:00: mouth 2 [place] 00 (two) Medical times Branch daily. metoprolol 2019-08 Yes TAKE 1/2 Uni vers tartrate 25 1-11 TABLET BY ity of mg tablet 00:00: MOUTH [place] 00 TWICE Medical DAILY Branch ENTRESTO 2019- Yes 1{tbl} Take 1 Unive rs 49-51 mg 1-11 tablet by ity of tablet 00:00: mouth 2 [place] (two) Medical times Branch daily. metoprolol 2019-08 Yes TAKE 1/2 Uni vers tartrate 25 1-11 TABLET BY ity of mg tablet 00:00: MOUTH [place] 00 TWICE Medical DAILY Branch ENTRESTO 2019- Yes 1{tbl} Take 1 Unive rs 49-51 mg 1-11 tablet by ity of tablet 00:00: mouth 2 [place] (two) Medical times Branch daily. metoprolol 2019-08 Yes TAKE 1/2 Uni vers tartrate 25 1-11 TABLET BY ity of mg tablet 00:00: MOUTH [place] 00 TWICE Medical DAILY Branch ENTRESTO 2019- Yes 1{tbl} Take 1 Unive rs 49-51 mg 1-11 tablet by ity of tablet 00:00: mouth 2 [place] 00 (two) Medical times Branch daily. metoprolol 2019-08 Yes TAKE 1/2 Uni vers tartrate 25 1-11 TABLET BY ity of mg tablet 00:00: MOUTH [place] 00 TWICE Medical DAILY Branch ENTRESTO 2019- Yes 1{tbl} Take 1 Unive rs 49-51 mg 1-11 tablet by ity of tablet 00:00: mouth 2 [place] 00 (two) Medical times Branch daily. metoprolol 2019-08 Yes TAKE 1/2 Uni vers tartrate 25 1-11 TABLET BY ity of mg tablet 00:00: MOUTH [place] 00 TWICE Medical DAILY Branch ENTRESTO 2019- Yes 1{tbl} Take 1 Unive rs 49-51 mg 1-11 tablet by ity of tablet 00:00: mouth 2 [place] 00 (two) Medical times Branch daily. metoprolol 2019-08 Yes TAKE 1/2 Uni vers tartrate 25 1-11 TABLET BY ity of mg tablet 00:00: MOUTH [place] 00 TWICE Medical DAILY Branch ENTRESTO 2020- Yes 1{tbl} Take 1 Unive rs 49-51 mg 1-11 tablet by ity of tablet 00:00: mouth 2 [place] 00 (two) Medical times Branch daily. metoprolol 2019- Yes TAKE 1/2 Uni vers tartrate 25 1-11 TABLET BY ity of mg tablet 00:00: MOUTH [place] 00 TWICE Medical DAILY Branch ENTRESTO 2020- Yes 1{tbl} Take 1 Unive rs 49-51 mg 1-11 tablet by ity of tablet 00:00: mouth 2 [place] (two) Medical times Branch daily. metoprolol 2019- Yes TAKE 1/2 Uni vers tartrate 25 1-11 TABLET BY ity of mg tablet 00:00: MOUTH [place] 00 TWICE Medical DAILY Branch ENTRESTO 2019- Yes 1{tbl} Take 1 Unive rs 49-51 mg 1-11 tablet by ity of tablet 00:00: mouth 2 [place] (two) Medical times Branch daily. metoprolol 2019-08 Yes TAKE 1/2 Uni vers tartrate 25 1-11 TABLET BY ity of mg tablet 00:00: MOUTH [place] 00 TWICE Medical DAILY Branch ENTRESTO 2019- Yes 1{tbl} Take 1 Unive rs 49-51 mg 1-11 tablet by ity of tablet 00:00: mouth 2 [place] (two) Medical times Branch daily. metoprolol 2019-08 Yes TAKE 1/2 Uni vers tartrate 25 1-11 TABLET BY ity of mg tablet 00:00: MOUTH [place] 00 TWICE Medical DAILY Branch Immunizations Ordered Filled Immunization Date Status Comments [facility] e Immunization Name Name [facility] 2022-05-14 Completed University of 00:00:00 [facility] 2022-05-14 Completed University of 00:00: [facility] 2022-05-14 Completed University of 00:00: [facility] 2022-05-14 Completed University of 00:00:00 [facility] 2022-05-14 Completed University of 00:00:00 [facility] 2022-05-14 Completed University of 00:00:00 [facility] 2022-05-14 Completed University of 00:00:00 [place] [facility] TDAP 2022-05-14 Completed University of 00:00:00 [place] [facility] TDAP 2022-05-14 Completed University of 00:00:00 [place] [facility] TDAP 2022-05-14 Completed University of 00:00:00 [place] [facility] TDAP 2022-05-14 Completed University of 00:00:00 [place] [facility] TDAP 2022-05-14 Completed University of 00:00:00 [place] [facility] TDAP 2022-05-14 Completed University of 00:00:00 [place] [facility] TDAP 2022-05-14 Completed University of 00:00:00 [place] [facility] TDAP 2022-05-14 Completed University of 00:00:00 [place] [facility] TDAP 2022-05-14 Completed University of 00:00:00 [place] [facility] TDAP 2022-05-14 Completed University of 00:00:00 [facility] TDAP 2022-05-14 Completed University of 00:00:00 [place] [facility] TDAP 2022-05-14 Completed University of 00:00:00 [place] [facility] TDAP 2022-05-14 Completed University of 00:00:00 [facility] Branch TDAP 2022-05-14 Completed University of 00:00:00 [place] [facility] TDAP 2022-05-14 Completed University of 00:00:00 [place] [facility] TDAP 2022-05-14 Completed University of 00:00:00 [facility] Branch TDAP 2022-05-14 Completed University of 00:00:00 [facility] [place] [facility] Vital Signs Vital Name Observation Time Observation Value Comments Source Heart rate 2022-07-29 15:52:00 80 /min [facility] [place] [facility] [place] [facility] Respiratory rate 2022-07-29 15:52:00 16 /min [facility] [place] [facility] Oxygen saturation in 2022-07-29 15:52:00 94 /min [facility] Arterial blood by [facility] Pulse oximetry Branch Systolic blood 2022-07-29 15:48:00 111 mm[Hg] Univer sity of pressure [facility] [place] [facility] Diastolic blood 2022-07-29 15:48:00 75 mm[Hg] Unive rsity of pressure [facility] [place] [facility] Body temperature 2022-07-29 15:29:00 36.67 Rosa Univ ers[facility] of [place] [facility] Body height 2022-07-26 18:45:00 182.9 cm Universi ty of [place] [facility] Body weight 2022-07-26 18:45:00 104.327 kg Universi ty of [place] [facility] BMI 2022-07-26 18:45:00 31.19 kg/m2 [facility] of [place] [facility] Heart rate 2022-07-29 15:36:00 82 /min [facility] [place] [facility] Respiratory rate 2022-07-29 15:36:00 19 /min [facility] ers[facility] [place] [facility] Oxygen saturation in 2022-07-29 15:36:00 94 /min [facility] Arterial blood by [facility] Pulse oximetry Branch Systolic blood 2022-07-29 15:34:00 104 mm[Hg] Univer sity of pressure [place] [facility] Diastolic blood 2022-07-29 15:34:00 68 mm[Hg] Unive rsity of pressure [place] [facility] Body temperature 2022-07-29 15:29:00 36.67 Rosa Univ ers[facility] of [place] [facility] Body height 2022-07-26 18:45:00 182.9 cm Universi ty of [place] [facility] Body weight 2022-07-26 18:45:00 104.327 kg Universi ty of [place] [facility] BMI 2022-07-26 18:45:00 31.19 kg/m2 [facility] [place] [facility] Systolic blood 2022-06-29 15:00:00 112 mm[Hg] Univer sity of pressure [place] [facility] Diastolic blood 2022-06-29 15:00:00 73 mm[Hg] Unive rsity of pressure [place] [facility] Heart rate 2022-06-29 15:00:00 102 /min [facility]i [facility] [place] [facility] Body temperature 2022-06-29 15:00:00 36.61 Rosa [facility] ers[facility] [place] [facility] Respiratory rate 2022-06-29 15:00:00 18 /min [facility] [place] [facility] Body height 2022-06-29 15:00:00 182.9 cm Universi [facility] [place] [facility] Body weight 2022-06-29 15:00:00 107.684 kg Universi ty of [place] [facility] BMI 2022-06-29 15:00:00 32.20 kg/m2 [facility] ty of [place] [facility] Oxygen saturation in 2022-06-29 15:00:00 98 /min University of Arterial blood by [place] [facility] Pulse oximetry Branch Systolic blood 2022-05-31 16:22:00 120 mm[Hg] Univer sity of pressure [place] [facility] Diastolic blood 2022-05-31 16:22:00 73 mm[Hg] Unive rsity of pressure [place] [facility] Heart rate 2022-05-31 16:22:00 96 /min Universi ty [facility] [place] [facility] Body temperature 2022-05-31 16:22:00 36.94 Rosa [facility] [place] [facility] Body height 2022-05-31 16:22:00 182.9 cm Universi ty [facility] [place] [facility] Body weight 2022-05-31 16:22:00 109.317 kg [facility] [place] [facility] BMI 2022-05-31 16:22:00 32.69 kg/m2 [facility] [place] [facility] Oxygen saturation in 2022-05-31 16:22:00 97 /min University of Arterial blood by [facility] jeannine Pulse oximetry Branch Systolic blood 2022-05-21 14:20:00 120 mm[Hg] Univer sity of pressure [place] [facility] Diastolic blood 2022-05-21 14:20:00 83 mm[Hg] Unive rsity of pressure [place] [facility] Heart rate 2022-05-21 14:20:00 94 /min [facility] [place] [facility] Body weight 2022-05-21 14:20:00 107.82 kg [facility]i [facility] [place] [facility] BMI 2022-05-21 14:20:00 32.24 kg/m2 Universi ty of [place] [facility] Oxygen saturation in 2022-05-21 14:20:00 100 /min University of Arterial blood by [facility] jeannine Pulse oximetry Branch Systolic blood 2022-05-14 22:58:00 116 mm[Hg] Univer sity of pressure [place] [facility] Diastolic blood 2022-05-14 22:58:00 75 mm[Hg] Unive rsity of pressure [place] [facility] Heart rate 2022-05-14 22:58:00 97 /min [facility]i [facility] [place] [facility] Body temperature 2022-05-14 22:58:00 36.94 Rosa [facility] [place] [facility] Respiratory rate 2022-05-14 22:58:00 16 /min [facility] ers[facility] [place] [facility] Body height 2022-05-14 22:58:00 182.9 cm Universi [facility] [place] [facility] Body weight 2022-05-14 22:58:00 108.909 kg [facility] [place] [facility] BMI 2022-05-14 22:58:00 32.56 kg/m2 [facility] [place] [facility] Oxygen saturation in 2022-05-14 22:58:00 97 /min University of Arterial blood by [place] [employer] jeannine Pulse oximetry Branch Systolic blood 2022-05-02 23:34:00 118 mm[Hg] Univer sity of pressure [place] [facility] Diastolic blood 2022-05-02 23:34:00 80 mm[Hg] Unive rsity of pressure [place] [facility] Heart rate 2022-05-02 23:34:00 107 /min [facility]i ty [facility] [place] [facility] Body temperature 2022-05-02 23:34:00 38 Rosa [facility] [place] [facility] Respiratory rate 2022-05-02 23:34:00 16 /min [facility] [place] [facility] Body height 2022-05-02 23:34:00 182.9 cm [facility]i [facility] [place] [facility] Body weight 2022-05-02 23:34:00 110.224 kg [facility] [place] [facility] BMI 2022-05-02 23:34:00 32.96 kg/m2 [facility] [place] [facility] Oxygen saturation in 2022-05-02 23:34:00 95 /min University of Arterial blood by [place] [employer] jeannine Pulse oximetry Branch Systolic blood 2021-11-27 16:54:00 107 mm[Hg] Univer sity of pressure [place] [facility] Diastolic blood 2021-11-27 16:54:00 71 mm[Hg] Unive rsity of pressure [place] [facility] Heart rate 2021-11-27 16:54:00 81 /min Universi ty [facility] [place] [facility] Body height 2021-11-27 16:54:00 182.9 cm [facility] [place] [facility] Body weight 2021-11-27 16:54:00 102.059 kg [facility] [place] [facility] BMI 2021-11-27 16:54:00 30.52 kg/m2 [facility] [place] [facility] Oxygen saturation in 2021-11-27 16:54:00 98 /min University Arterial blood by [facility] Pulse oximetry Branch Procedures Procedure Date / Time Performing Clinician Source Performed COLONOSCOPY (ENDO) 2022-07-29 14:19:21 Doctor Unassigned, No [facility] [place] COLONOSCOPY (ENDO) 2022-07-29 14:19:21 Doctor Unassigned, No [facility] [place] COLONOSCOPY 2022-07-29 14:18:00 Hanna Chew [facility] [place] [facility] POCT GLUCOSE (AUTOMATED) 2022-07-29 13:28:00 Hanna Chew versity of [facility] [place] [facility] POCT GLUCOSE (AUTOMATED) 2022-07-29 13:28:00 Hanna Chew versity of [facility] [place] [facility] DAY SURGERY - ADC 2022-07-29 06:01:00 Doctor Unassigned, No Univ ersity [facility] [place] MEDICAL 2022-07-20 06:01:00 Doctor Unassigned, No [facility] [place] RELEASE/CLEARANCE FORMS Name [facility] [place] MEDICAL 2022-07-02 06:01:00 Doctor Unassigned, No [facility] [place] RELEASE/CLEARANCE FORMS Name [facility] [place] EXTERNAL PROVIDER 2022-07-01 06:01:00 Doctor Unassigned, No [facility] [place] RECORDS Name [facility] [place] EXTERNAL PROVIDER 2022-06-29 06:01:00 Doctor Unassigned, No [facility] [place] RECORDS [facility] AUTHORIZATION TO RELEASE 2022-05-31 05:01:00 Doctor Unassigned, No [facility] PHI TO [facility] [place] POCT HEMOGLOBIN A1C TEST 2022-05-21 14:32:00 Andrez Brizuela [facility] AUTHORIZATION TO RELEASE 2022-05-21 05:01:00 Doctor Unassigned, No [facility] PHI TO [facility] TDAP VACCINE, >11 YRS, 2022-05-14 23:12:54 Lety Michael [facility]ity of [facility] [place] [facility] POCT HEMOGLOBIN A1C TEST 2021-11-27 16:57:00 Andrez Brizuela [facility] [place] MEDICAL 2021 06:01:00 Doctor Unassigned, No [facility] [place] RELEASE/CLEARANCE FORMS Name Medical Branch Plan of Care Planned Activity Planned Date Details Comments Source Future Scheduled 2022-07-27 Pneumococcal Vaccine: [facility] Test 04:41:05 Pediatrics (0 to 5 Years) and At-Risk Patients (6 to 64 Years) (1 - PCV) [code = Pneumococcal Vaccine: Pediatrics (0 to 5 Years) and At-Risk Patients (6 to 64 Years) (1 - PCV)] Future Scheduled 2022-07-27 Hepatitis C screening [facility] Test 04:41:05 (procedure) [code = [id number]] Future Scheduled 2022-07-27 COLONOSCOPY SCREENING [facility] Test 04:41:05 [code = COLONOSCOPY SCREENING] Future Scheduled 2022-07-27 SHINGLES VACCINES (1 [facility] Test 04:41:05 of 2) [code = SHINGLES VACCINES (1 of 2)] Future Scheduled 2022-07-27 COVID-19 VACCINE (2 - [facility] Test 04:41:05 Booster for Leo series) [code = COVID-19 VACCINE (2 - Booster for Leo series)] Future Scheduled 2022-07-27 INFLUENZA VACCINE [facility] 04:41:05 [code = INFLUENZA VACCINE] Encounters Start End Encounter Admission Attending Care Care Encounter Source Date/Time Date/Time Type Type Clinicians Facility Department ID 2022-08-13 2022-08-13 Brimley Naina [facility] [id number] Univers 00:00:00 00:00:00 [facility] 350.1.13.10 it y of CANCER 4.2.7.2.686 [facility] - [phone] [facility] [address] 2022-07-29 2022-07-29 Outpatient R NAINA COPAPA ALEJA [id number] Univers 07:19:00 10:09:00 HANNA ity [facility] 2022-07-29 2022-07-29 [facility] 1.2.840.114 [id number] Univers 07:19:00 10:09:00 Encounter [facility] 350.1.13.10 ity of [place] 4.2.7.2.686 [facility] SURGICAL [phone] [facility] [address] 2022-07-29 2022-07-29 Surgery Naina [facility] 1.2.840.114 [id number] Univers 08:28:00 09:36:00 Hanna STELLA 350.1.13.10 i [place]2.[place] [phone] [facility] [address] 2022-07-29 2022-07-29 Telephone [facility] 1.2.840.114 [id number] Univers 00:00:00 00:00:00 Andrez [facility] 350.1.13.10 it y of [place] 4.2.7.2.686 Dat as QAMAR?BLEA [id number] [facility] [address] MEDICAL OFFICE BUILDING 2022-07-29 2022-07-29 Orders Doctor NELSON 1.2.840.114 [id number] Univers 00:00:00 00:00:00 Only Unassigned, GRIFFIN 350.1.13.10 ity of [place] [facility] 4.2.7.2.686 Dat as [id number] [address] 2022-07-20 2022-07-20 Orders Doctor NELSON 1.2.840.114 [id number] Univers 00:00:00 00:00:00 Only Unassigned, GRIFFIN 350.1.13.10 ity of [place] [facility] 4.2.7.2.686 Dat as [id number] [address] 2022-07-02 2022-07-02 Orders Doctor DAMON 1.2.840.114 [id number] Univers 00:00:00 00:00:00 Only Unassigned, GRIFFIN 350.1.13.10 ity of [place] [facility] 4.2.7.2.686 Dat as [id number] [address] 2022-07-01 2022-07-01 Orders Doctor NELSON 1.2.840.114 [id number] Univers 00:00:00 00:00:00 Only Unassigned, GRIFFIN 350.1.13.10 ity of [place] [facility] 4.2.7.2.686 Dat as [id number] [address] 2022-06-29 2022-06-29 Outpatient Arabella DENIS [facility] [id number] Univers 08:45:00 09:41:33 MAYI casey o f [facility] 2022-06-29 2022-06-29 Office Niraj [facility] 1.2.840.114 [id number] [facility] 08:45:00 09:41:33 Visit Mayi DOUGLAS 350.1.13.10 ity of [place] [facility] [id number] [facility] [address] [facility] 2022-06-29 2022-06-29 Orders Doctor NELSON 1.2.840.114 [id number] Univers 00:00:00 00:00:00 Only Unassigned, GRIFFIN 350.1.13.10 ity of [place] [facility] 4.2.7.2.686 Dat as [id number] [address] 2022-06-10 2022-06-10 Telephone [facility] 1.2.197.100 [id number] Univers 00:00:00 00:00:00 Lupe HEALTH 350.1.13.10 ity of [place] 4.2.7.2.686 Dat as QAMAR?BLEA [id number] [facility] 0[address] [facility] OFFICE [facility] 2022-06-09 2022-06-09 Telephone [facility] 1.2.568.468 [id number] Univers 00:00:00 00:00:00 Lupe HEALTH 350.1.13.10 ity of [place] 4.2.7.2.686 Dat as QAMAR?BLEA [id number] [address] OFFICE [facility] 2022-05-31 2022-05-31 Outpatient R DYLAN [facility] [id number] Univers 11:20:00 12:46:23 LUPE ity [facility] 2022-05-31 2022-05-31 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, Emanuel - Juan Miguel [facility] 1.2.840.1 [id number] Univers 12:00:00 12:15:00 [facility] 350.1.13.10 ity of [place] 4.2.7.2.686 Dat as QAMAR?BLEA [id number] Me dicleroy HAIRSTON [address] MEDICAL OFFICE [facility] 2022-05-31 2022-05-31 Office Andrewjerzy, [facility] 1.2.840.114 [id number] Univers 11:20:00 12:00:00 Visit Lupe HEALTH 350.1.13.10 ity of [place] 4.2.7.2.686 Dat as QAMAR?BLEA [id number] Il leonidas HAIRSTON [address] MEDICAL OFFICE [facility] 2022-05-31 2022-05-31 Orders Doctor NELSON 1.2.840.114 [id number] Univers 00:00:00 00:00:00 Only Unassigned, GRIFFIN 350.1.13.10 ity of [place] [facility] 4.2.7.2.686 Dat as [id number] [address] 2022-05-25 2022-05-25 Nurse Nurse, [facility] 1.2.840.114 [id number] Univers 10:45:00 11:05:00 Visit Unknown, [facility] 350.1.13.10 ity of [place] 4.2.7.2.686 Dat as QAMAR?BLEA [id number] Il leonidas HAIRSTON [address] MEDICAL OFFICE [facility] 2022-05-25 2022-05-25 Outpatient R [facility] [id number] Univers 10:45:00 10:45:00 KATHIE glaser f [facility] 2022-05-21 2022-05-21 Outpatient R [facility] [id number] Univers 09:00:00 10:03:16 ANDREZ casey [facility] 2022-05-21 2022-05-21 Office [facility] 1.2.158.976 [id number] Univers 09:00:00 10:03:16 Visit Andrez [facility] 350.1.13.10 it y of [place] 4.2.7.2.686 Dat as QAMAR?BLEA [id number] Il leonidas HAIRSTON [address] MEDICAL OFFICE [facility] 2022-05-21 2022-05-21 Outpatient R [facility] [id number] Univers 09:00:00 09:00:00 ANDREZ casey [facility] 2022-05-21 2022-05-21 Telephone [facility] 1.2.840.114 [id number] Univers 00:00:00 00:00:00 Andrez Reyes HEALTH 350.1.13.10 it y of [place] 4.2.7.2.686 Dat as QAMAR?BLEA [id number] [facility] [address] MEDICAL OFFICE BUILDING 2022-05-21 2022-05-21 Orders Doctor DAMON 1.2.840.114 [id number] Univers 00:00:00 00:00:00 Only Unassigned, GRIFFIN 350.1.13.10 ity of [place] [facility] 4.2.7.2.686 Dat as [id number] [address] 2022-05-14 2022-05-14 Urgent Alec Lety [facility] 1.2.840. 114 [id number] Univers 18:00:00 18:20:00 Care [facility] Kristy HEALTH 350.1.13.10 ity of [place] 4.2.7.2.686 Dat as QAMAR?BLEA [id number] [address] OFFICE [facility] 2022-05-14 2022-05-14 Outpatient R ALEC [facility] [id number] Univers 18:00:00 18:00:00 LETY casey o f [facility] 2022-05-02 2022-05-02 Outpatient R [facility] [id number] Univers 18:40:00 19:05:09 JENNA ity of [facility] 2022-05-02 2022-05-02 Urgent [facility] 1.2.840.114 [id number] Univers 18:40:00 19:05:09 Care [facility] 350.1.13.10 it y of [place] 4.2.7.2.686 Dat as QAMAR?BLEA [phone] [address] MEDICAL OFFICE [facility] 2022-01-08 2022-01-08 Letter NELSON Jimeenz 1.2.840.114 [id number] Univers 00:00:00 00:00:00 (Out) Jocelin Clark GRIFFIN 350.1.13.10 it y of HOSPITAL 4.2.7.2.686 Dat as [id number] [facility] [address] 2022-01-07 2022-01-07 Outpatient R GERARDO [facility] [id number] Univers 14:15:00 14:57:33 JENNA itjerzy [facility] 2022-01-07 2022-01-07 Laboratory Only, Ang Db Test [facility] 1.2.8 40.114 [id number] Univers 14:15:00 14:30:00 Only Jenna Carrillo 350.1.13.10 ity of [place] 4.2.7.2.686 Dat as QAMAR?BLEA [id number] Il leonidas HAIRSTON [address] MEDICAL OFFICE [facility] 2021-11-27 2021-11-27 Outpatient R [facility] [id number] Univers 11:30:00 12:36:13 ANDREZ casey [facility] 2021-11-27 2021-11-27 Office [facility] 1.2.954.249 [id number] Univers 11:30:00 12:36:13 Visit Andrez [facility] 350.1.13.10 it y of [place] 4.2.7.2.686 Dat as QAMAR?BLEA [id number] Il leonidas RAFAEL [address] MEDICAL OFFICE [facility] 2021-11-27 2021-11-27 Outpatient R [facility] [id number] Univers 11:30:00 11:30:00 ANDREZ [facility] 2021 2021 Orders Doctor DAMON 1.2.840.114 [id number] Univers 00:00:00 00:00:00 Only Unassigned, GRIFFIN 350.1.13.10 ity of [facility] 4.2.7.2.686 Dat as [id number] [facility] [address] 2021-08-13 2021-08-13 Outpatient [facility], [facility] 077 [id number] [place] 00:00:00 00:00:00 NADIM 356 [address] i 2021-08-11 2021-08-11 Outpatient [facility] [id number] [place] 00:00:00 00:00:[address] NADIM [address] 2021-07-31 2021-07-31 Outpatient [facility], [facility] [id number] [place] 00:00:00 00:00:00 NADIM 943 Method i 2021-07-24 2021-07-24 Emergency KRISTOPHER [facility] 064 [id number] [place] 00:00:00 00:00:00 RI, [address] 2021-05-29 2021-05-29 Office [facility] 1.2.719.929 [id number] [facility] 16:29:32 17:05:02 Visit Andrez [facility] 350.1.13.10 [facility] 4.2.7.2.686 Dat as Qamar?Blea [phone] [address] Medical Office Building 2021-05-29 2021-05-29 Outpatient Arabella BRIZUELA [facility] [id number] [facility] 16:30:00 16:30:00 ANDREZ jerzy [facility] 2020-11-21 2020-11-21 Office [facility] 1.2.524.200 [id number] 13:38:58 14:36:57 Visit Andrez Douglas 350.1.13.10 [place] 4.2.7.2.686 Professio [id number] [address] 2020-11-21 2020-11-21 Outpatient Arabella [facility]UELA [facility] [id number] Univers 13:30:00 13:30:00 [facility] 2020-07-18 2020-07-18 Outpatient Arabella [facility]LECT [facility] [id number] Univers 10:30:00 10:30:00 [facility] 2020-03-14 2020-03-14 Outpatient Arabella BRIZUELA [facility] [id number] Univers 08:30:00 08:30:00 [facility] Results Test Description Test Time Test Comments Results Result Comments Source POCT GLUCOSE (AUTOMATED) 2022-07-29 13:35:56 Test Item Value Reference Range Interpretation Comme nts POCT GLU (test code = 2564297798) 117 mg/dL 70-110 H Lab Interpretation (test code = 20853-7) [facility]29 13:35:56 Test Item Value Reference Range Interpretation Comments POCT GLU (test code = 6352703712) 117 mg/dL 70-110 H Lab Interpretation (test code = Abnormal 77802-1) [facility] HEMOGLOBIN A1C [id number] 14:32:00 Test Item Value Reference Range Interpretation Comments POCT HBA1C (test code = 4548-4) 6.2 % 4-6 A Lab Interpretation (test code = Abnormal 31232-5) [facility] HEMOGLOBIN A1C [id number] 14:32:00 Test Item Value Reference Range Interpretation Comments POCT HBA1C (test code = 4548-4) 6.2 % 4-6 A Lab Interpretation (test code = Abnormal 15471-8) [facility] HEMOGLOBIN A1C [id number] 16:58:00 Test Item Value Reference Range Interpretation Comments POCT HBA1C (test code = 4548-4) 6.7 % 4-6 A Lab Interpretation (test code = Abnormal 01329-7) [facility] RNA [Presence] in Respiratory specimen by EDUAR with probe [id number] 18:36:41 Test Item Value Reference Range Interpretation Comments SARS-CoV-2 (COVID-19) RNA Not detected Not-Detected [Presence] in Respiratory specimen by EDUAR with probe detection (test code = 34709-3) Whether patient is employed in a healthcare setting (test code = 35591-5) Whether the patient has symptoms related to condition of interest (test code = 74803-3) Patient was hospitalized because of this condition (test code = 94730-2) Whether the patient was admitted to intensive care unit (ICU) for condition of interest (test code = 06638-7) Whether patient resides in a congregate care setting (test code = 33502-1) EPHRAIM QUESADA
[2022-08-18 03:56] LABS: Protime INR 1.22
[2022-08-18 03:58] LABS: Absolute Lymphocytes (CBC) 2.4 K/uL (0.7-4.9); Hematocrit 41.1 % (39.6-49.0); Lymphocytes % 25.1 % (15.3-44.8); MCV 78.9 fL (80-100); MPV 9.1 fL (7.6-11.3); RBC Red Blood Cell Count 5.22 M/uL (4.33-5.43)
[2022-08-18 04:12] LABS: Albumin 3.3 g/dL (3.4-5.0); Bilirubin Direct 0.2 mg/dL (0-0.2); Bilirubin Total 0.6 mg/dL (0.2-1.0); Magnesium 1.9 mg/dL (1.6-2.4); Potassium 4.2 mmol/L (3.5-5.1); Protein, Total 6.3 g/dL (6.4-8.2); Troponin High Sensitivity 16.9 pg/mL (<58.9)
[2022-08-18] MEDS ORDERED: FUROSEMIDE 40 MG/4 ML VIAL ONE (04:27)
--- NOTE | 2022-08-18 05:08 | ER ---
Nurse's Notes [facility] Name: Cornelius Herman Jr Age: 56 yrs Sex: Male : 1965 Arrival Date: 08/18/2022 Time: 03:02 Bed 6 Private MD: Diagnosis: Congestive heart failure, mild Presentation: 08/18 03:20 Chief complaint: Patient states: "For the past few days I have felt like my stomach was vc1 full of liquid, I do have heart problems, but today I woke up feeling short of breath almost like my stomach is pushing up into my lungs.". Note Had a colonoscopy 2 wks ago. 03:25 Coronavirus screen: Vaccine status: Patient reports receiving the 1st dose of the Covid vc1 vaccine. At this time, the client does not indicate any symptoms associated with coronavirus-19. Ebola Screen: No symptoms or risks identified at this time. Initial Sepsis Screen: Does the patient meet any 2 criteria? RR > 20 per min. HR > 90 bpm. Yes Does the patient have a suspected source of infection? No. Patient's initial sepsis screen is negative. Risk Assessment: Do you want to hurt yourself or someone else? Patient reports no desire to harm self or others. Onset of symptoms was August 18, 2022. 03:25 Method Of Arrival: Ambulatory vc1 03:25 Acuity: MIKE 3 vc1 Triage Assessment: 03:28 General: Appears in no apparent distress. uncomfortable, Behavior is cooperative. Pain: vc1 Denies pain. EENT: No deficits noted. No signs and/or symptoms were reported regarding the EENT system. Neuro: Level of Consciousness is awake, alert, obeys commands, Oriented to person, place, time, situation, Appropriate for age. Cardiovascular: Reports shortness of breath, Patient's skin is warm and dry. Respiratory: Airway is patent Respiratory effort is even, labored, Respiratory pattern is symmetrical, tachypnea. GI: Abdomen is distended, Abd is non tender. : No deficits noted. No signs and/or symptoms were reported regarding the genitourinary system. Derm: No deficits noted. No signs and/or symptoms reported regarding the dermatologic system. Musculoskeletal: No deficits noted. No signs and/or symptoms reported regarding the musculoskeletal system. Historical: - Allergies: 03:21 No Known Allergies; vc1 - Home Meds: 03:21 aspirin 81 mg Oral chew 1 tab once daily [Active]; Entresto 97-103 mg oral tab 1 tab vc1 [Active]; glimepiride 4 mg oral tab [Active]; metoprolol tartrate 25 mg oral tab [Active]; allopurinol 300 mg Oral tab 1 tab once daily [Active]; montelukast 10 mg oral tab 1 tab once daily [Active]; Ozempic 0.25 mg or 0.5 mg(2 mg/1.5 mL) subcutaneous pnij once wkly [Active]; spironolactone 25 mg Oral tab 1 tab once daily [Active]; atorvastatin 40 mg oral tab 1 tab once daily [Active]; metformin 1,000 mg Oral tab [Active]; furosemide 40 mg Oral tab 1 tab once daily [Active]; - PMHx: 03:21 Diabetes - NIDDM; Hyperlipidemia; Hypertension; "heart condition"; Congestive heart vc1 failure; - Immunization history:: Client reports receiving the Joe \\T\\ Joe single-dose vaccine. - Social history:: Smoking status: Patient denies any tobacco usage or history of. Screenin:30 [place] ED Fall Risk Assessment (Adult) History of falling in the last 3 months, vc1 including since admission No falls in past 3 months (0 pts) Confusion or Disorientation No (0 pts) Intoxicated or Sedated No (0 pts) Impaired Gait No (0 pts) Mobility Assist Device Used No (0 pt) Altered Elimination Yes (1 pt) Score/Fall Risk Level 0 - 2 = Low Risk Maintained a safe environment, Educated pt \\T\\ family on fall prevention, incl call for assistance when getting out of bed. Abuse screen: Denies threats or abuse. Nutritional screening: No deficits noted. Tuberculosis screening: No symptoms or risk factors identified. Assessment: 03:26 General: Appears in no apparent distress. uncomfortable, Behavior is calm, cooperative, jb4 appropriate for age. Pain: Denies pain. Neuro: Level of Consciousness is awake, alert, obeys commands, Oriented to person, place, time, situation. Cardiovascular: Patient's skin is warm and dry. Respiratory: Airway is patent Respiratory effort is even, unlabored, Respiratory pattern is regular, symmetrical. GI: Abdomen is round distended, Bowel sounds present X 4 quads. Abd is soft and non tender X 4 quads. : No signs and/or symptoms were reported regarding the genitourinary system. EENT: No signs and/or symptoms were reported regarding the EENT system. Derm: No signs and/or symptoms reported regarding the dermatologic system. Musculoskeletal: Circulation, motion, and sensation intact. Range of motion: intact in all extremities. 04:32 Reassessment: Patient appears in no apparent distress at this time. Patient and/or jb4 family updated on plan of care and expected duration. Pain level reassessed. Respirations remain even, unlabored, and tachypneic. No s/s of pain or distress noted. Vital Signs: 03:25 BP 120 / 89 LA; Pulse 90 MON; Resp 26 S; Temp 98.1(O); Pulse Ox 97% on R/A; Weight vc1 103.42 kg (R); Height 6 ft. 0 in. (182.88 cm) (R); Pain 0/10; 04:32 BP 106 / 86; Pulse 91; Resp 27; Pulse Ox 99% on R/A; jb4 03:25 Body Mass Index 30.92 (103.42 kg, 182.88 cm) vc1 ED Course: 03:02 Patient arrived in ED. jj6 03:07 Madeleine Karimi MD is Attending Physician. sp3 03:21 Kev Hart, RN is Primary Nurse. jb4 03:28 Triage completed. vc1 03:28 Arm band placed on left wrist. vc1 03:28 Patient has correct armband on for positive identification. Placed in gown. Bed in low vc1 position. Client placed on continuous cardiac and pulse oximetry monitoring. NIBP monitoring applied. 03:30 Initial lab(s) drawn, by me, sent to lab. Inserted saline lock: 18 gauge in right jb4 antecubital area, using aseptic technique. Blood collected. 03:38 XRAY Chest (1 view) In Process Unspecified. EDMS 03:44 Basic Metabolic Panel Sent. jb4 03:44 CBC with Diff Sent. jb4 03:44 Magnesium Sent. jb4 03:44 LFT's Sent. jb4 03:44 NT PRO-BNP Sent. jb4 03:44 PT-INR Sent. jb4 03:44 Troponin HS Sent. jb4 05:14 No provider procedures requiring assistance completed. IV discontinued, intact, jb4 bleeding controlled, No redness/swelling at site. Pressure dressing applied. Administered Medications: 04:30 Drug: Lasix (furosemide) 40 mg Route: IVP; Site: right antecubital; jb4 05:15 Follow up: Urine output 625 ml; Response: No adverse reaction jb4 Medication: 03:28 VIS not applicable for this client. vc1 Output: 05:15 Urine: 625ml; Total: 625ml. jb4 Outcome: 05:07 Discharge ordered by . sp3 05:15 Discharged to home ambulatory. jb4 05:15 Condition: stable 05:15 Discharge instructions given to patient, Instructed on discharge instructions, follow up and referral plans. Demonstrated understanding of instructions, follow-up care. 05:15 Patient left the ED. jb4 Signatures: Dispatcher [employer] EDKev Phillips, RN RN jb4 Mdaeleine Karimi MD MD sp3 Chelita Cabralj6 Jina Sutton RN RN vc1
--- NOTE | 2022-08-18 05:08 | EDPHYS ---
Physician Documentation [facility] Name: Cornelius Herman Jr Age: 56 yrs Sex: Male : 1965 Arrival Date: 08/18/2022 Time: 03:02 Bed 6 Private MD: ED Physician Madeleine Karimi HPI: 08/18 03:51 This 56 yrs old Black Male presents to ER via Ambulatory with complaints of Abdominal sp3 Swelling, Abdominal Pain, Shortness Of Breath. 03:51 56-year-old male with a history of hypertension, CHF, hyperlipidemia, diabetes now sp3 presents with chief complaint difficulty breathing, weight gain, peripheral edema x48 hours. Patient denies any chest pain, headache, fever, back pain, change in diet, increase p.o. intake, increased salt intake, or any other ROS at this time.. Historical: - Allergies: 03:21 No Known Allergies; vc1 - Home Meds: 03:21 aspirin 81 mg Oral chew 1 tab once daily [Active]; Entresto 97-103 mg oral tab 1 tab vc1 [Active]; glimepiride 4 mg oral tab [Active]; metoprolol tartrate 25 mg oral tab [Active]; allopurinol 300 mg Oral tab 1 tab once daily [Active]; montelukast 10 mg oral tab 1 tab once daily [Active]; Ozempic 0.25 mg or 0.5 mg(2 mg/1.5 mL) subcutaneous pnij once wkly [Active]; spironolactone 25 mg Oral tab 1 tab once daily [Active]; atorvastatin 40 mg oral tab 1 tab once daily [Active]; metformin 1,000 mg Oral tab [Active]; furosemide 40 mg Oral tab 1 tab once daily [Active]; - PMHx: 03:21 Diabetes - NIDDM; Hyperlipidemia; Hypertension; "heart condition"; Congestive heart vc1 failure; - Immunization history:: Client reports receiving the Joe \\T\\ Joe single-dose vaccine. - Social history:: Smoking status: Patient denies any tobacco usage or history of. ROS: 03:52 Constitutional: Negative for fever, chills, and weight loss, ENT: Negative for injury, sp3 pain, and discharge, Neck: Negative for injury, pain, and swelling, Cardiovascular: Negative for chest pain, palpitations, and edema, Abdomen/GI: Negative for abdominal pain, nausea, vomiting, diarrhea, and constipation, Back: Negative for injury and pain, MS/Extremity: Negative for injury and deformity, Skin: Negative for injury, rash, and discoloration, Neuro: Negative for headache, weakness, numbness, tingling, and seizure, Psych: Negative for depression, anxiety, suicide ideation, homicidal ideation, and hallucinations, Allergy/Immunology: Negative for hives, rash, and allergies, Endocrine: Negative for neck swelling, polydipsia, polyuria, polyphagia, and marked weight changes, Hematologic/Lymphatic: Negative for swollen nodes, abnormal bleeding, and unusual bruising. 03:52 All other systems are negative. Exam: 03:52 Constitutional: This is a well developed, well nourished patient who is awake, alert, sp3 and in no acute distress. Head/Face: Normocephalic, atraumatic. Eyes: Pupils equal round and reactive to light, extra-ocular motions intact. Lids and lashes normal. Conjunctiva and sclera are non-icteric and not injected. Cornea within normal limits. Periorbital areas with no swelling, redness, or edema. Neck: Trachea midline, no thyromegaly or masses palpated, and no cervical lymphadenopathy. Supple, full range of motion without nuchal rigidity, or vertebral point tenderness. No Meningismus. Chest/axilla: Normal chest wall appearance and motion. Nontender with no deformity. No lesions are appreciated. Cardiovascular: Regular rate and rhythm with a normal S1 and S2. No gallops, murmurs, or rubs. Normal PMI, no JVD. No pulse deficits. Abdomen/GI: Soft, non-tender, with normal bowel sounds. No distension or tympany. No guarding or rebound. No evidence of tenderness throughout. Skin: Warm, dry with normal turgor. Normal color with no rashes, no lesions, and no evidence of cellulitis. Neuro: Awake and alert, GCS 15, oriented to person, place, time, and situation. Cranial nerves II-XII grossly intact. Motor strength 5/5 in all extremities. Sensory grossly intact. Cerebellar exam normal. Normal gait. Psych: Awake, alert, with orientation to person, place and time. Behavior, mood, and affect are within normal limits. 03:52 Respiratory: Mild Rales bilateral bases coupled with peripheral edema particularly in the lower extremities. He was pitting in nature. Patient is no respiratory distress and is saturating at 96% on room air breathing at 20-22 times per minute and able to talk in full sentences.. Vital Signs: 03:25 BP 120 / 89 LA; Pulse 90 MON; Resp 26 S; Temp 98.1(O); Pulse Ox 97% on R/A; Weight vc1 103.42 kg (R); Height 6 ft. 0 in. (182.88 cm) (R); Pain 0/10; 04:32 BP 106 / 86; Pulse 91; Resp 27; Pulse Ox 99% on R/A; jb4 03:25 Body Mass Index 30.92 (103.42 kg, 182.88 cm) vc1 MDM: 03:19 Patient medically screened. sp3 03:53 Data reviewed: vital signs, nurses notes. ED course: 56-year-old male with CHF and sp3 other past medical history not here for dyspnea. Differential diagnosis includes congestive heart failure, NV pneumonia among others. Clinically have ruled out pulmonary embolism, aortic dissection or aneurysm, sepsis, shock, esophagitis. Will obtain chest x-ray, EKG, laboratory values including BNP and administer Lasix if needed. Likely discharge home if patient is improved with possible admission for CHF exacerbation.. 05:06 ED course: Patient is feeling better at this time after Lasix IV administration. sp3 Patient prefers not to be admitted if possible. 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 08/18 03:19 Order name: Basic Metabolic Panel; Complete Time: 04:20 sp3 08/18 03:19 Order name: CBC with Diff; Complete Time: 04:20 sp3 08/18 03:19 Order name: LFT's; Complete Time: 04:20 sp3 08/18 03:19 Order name: Magnesium; Complete Time: 04:20 sp3 08/18 03:19 Order name: NT PRO-BNP; Complete Time: 04:20 sp08/18 03:19 Order name: PT-INR; Complete Time: 04:20 sp3 08/18 03:19 Order name: Troponin HS; Complete Time: 04:20 sp3 08/18 03:19 Order name: XRAY Chest (1 view) 08/18 03:19 Order name: EKG; Complete Time: 03:20 sp3 08/18 03:19 Order name: Cardiac monitoring; Complete Time: 03:21 sp3 08/18 03:19 Order name: EKG - Nurse/Tech; Complete Time: 03:44 sp3 08/18 03:19 Order name: IV Saline Lock; Complete Time: 03:44 sp3 08/18 03:19 Order name: Labs collected and sent; Complete Time: 03:44 sp3 08/18 03:19 Order name: O2 Per Protocol; Complete Time: 03:21 sp3 08/18 03:19 Order name: O2 Sat Monitoring; Complete Time: 03:21 sp3 Administered Medications: 04:30 Drug: Lasix (furosemide) 40 mg Route: IVP; Site: right antecubital; jb4 05:15 Follow up: Urine output 625 ml; Response: No adverse reaction jb4 Disposition Summary: 08/18/22 05:07 Discharge Ordered Location: Home sp3 Condition: Stable sp3 Diagnosis - Congestive heart failure, mild sp3 Followup: sp3 - With: Private Physician - When: Upon discharge from the Emergency Department - Reason: Continuance of care Discharge Instructions: - Discharge Summary Sheet sp3 - Heart Failure, Self Care sp3 Forms: - Medication Reconciliation Form sp3 - Thank You Letter sp3 - Antibiotic Education sp3 - Prescription Opioid Use sp3 Signatures: Dispatcher [employer] Kev Castro, RN RN jb4 Madeleine Karimi MD MD sp3 Jina Sutton RN RN vc1
[2022-08-18 05:24] VITALS: TEMP 98.1
[2022-08-18 05:25] VITALS: BP 106/86; O2SAT 99
--- NOTE | 2022-08-18 14:26 | RAD REPORT ---
EXAM DESCRIPTION: RAD - Chest Single View - 08/18/2022 3:37 am CLINICAL HISTORY: 56 years, Male, DYSPNEA COMPARISON: None. FINDINGS: Single view of the chest was obtained portable. No prior films are available for compariso n. The lung volume is slightly decreased. There is a single lead pacemaker defibrillator via right ortiz bclavian. The the heart is prominent. The thoracic aorta is unremarkable the pulmonary vasculature is normal distribution. Costophrenic angles are sharp. No areas of consolidation or masses are seen. The rest of the soft tissue and bony structures demonstrate to be unremarkable. IMPRESSION: Slightly decreased lung volume. Cardiomegaly. Pacemaker defibrillator in place. Electronically signed by: Zafar Thorpe MD 08/18/2022 3:57 AM RODENT EXTERMINATOR Due to temporary technical issues with the PACS/Fluency reporting system, reports are being signed by the in house radiologists without review as a courtesy to insure prompt reporting. The interpreting radiologist is fully responsible for the content of the report.
--- NOTE | 2022-08-18 16:01 | EKG ---
Test Date: 2022-08-18 Test Time: 03:28:10 Marriage Therapist: NEDRA MEASUREMENT RESULTS: Intervals: Rate: 89 ME: 132 QRSD: 88 QT: 396 QTc: 481 [place]: P: 54 ME: 132 QRS: -4 T: 44 INTERPRETIVE STATEMENTS: Normal sinus rhythm Prolonged QT Abnormal ECG Compared to ECG 10/03/2020 15:42:38 Prolonged QT interval now present Left ventricular hypertrophy no longer present Electronically Signed On 08-18-22 16:01:00 HIGH DENSITY TAL[employer] COATER OPERATOR by Richi Sultana
== END 2022-08-18 05:15 | disposition home or self-care (01) ==
LOC: ER 02:57
DX: I50.9 Heart failure, unspecified (principal); E11.9 Type 2 diabetes mellitus without complications; I10 Essential (primary) hypertension; Z79.82 Long term (current) use of aspirin
CPT/HCPCS: 93005; 85025; 80048; 36415; 83735; 85610; 80076; 84484; 83880; 71045; 96374; 99284; J1940